=== PATIENT | female | born 1945 | race Caucasian/White ===

== ENCOUNTER 2020-06-01 08:37 | Outpatient (CLI) | payer OTHER, MEDICAID, SELFPAY ==
--- NOTE | 2020-06-01 08:56 | ECHO_ITS ---
Patient Info Name: Staci Trejo Age: 75 years : 1945 Gender: Female Ht: 64 in Wt: 161 lbs BSA: 1.83 m2 HR: 102 bpm BP: 136 / 72 mmHg Technical Quality: Poor Exam Date: 06/01/2020 9:06 AM Exam Location: [facility] Patient Status: Outpatient Admit Date: 06/01/2020 Staff Ordering Physician: Christian Bryan DO Photo Manager: April Ritchie RDCS Attending Provider: Christian Bryan DO Referring Physician: Irvin MARTINEZ; Exam Type: CA echo dop color flow w con Study Info Indications - hesrt failure Complete two-dimensional, color flow and Doppler transthoracic echocardiogram is performed with contrast to opacify the left ventricle and to improve the deliniation of the left ventricle endocardial borders. Contrast/Agitated Saline Contrast/Ag. Saline: Definity Amount: 1.00 ml Administered By: Efra Graves RN New IV Access: Left Site Condition: IV removed Reason for Poor Study: poor echocardiographic windows Summary 1. Left ventricular chamber dimension is normal. 2. Definity contrast administered improved wall motion interpretation. 3. Ventricular septum is sigmoid shaped. No LVOT obstruction. 4. Left ventricular systolic function is hyperdynamic, estimated at >70%. 5. There is mildly increased left ventricular wall thickness. 6. The left ventricular diastolic function is grade I diastolic dysfunction. 7. E/e' 10 is mildly elevated. 8. Left atrial chamber dimension is mildly enlarged. 9. The aortic valve is not well visualized. Cannot determine number of aortic valve leaflets. 10. There is severe aortic valve sclerosis. 11. There is moderate aortic valve stenosis with a peak velocity of 283.24 cm/s, mean gradient of 21 mmHg, and aortic valve area of 1.38 cm2. 12. The mitral valve has moderately calcified leaflets and moderately calcified annulus. 13. No pulmonary hypertension, estimated pulmonary arterial systolic pressure is 28 mmHg. Left Ventricle E/e' 10 is mildly elevated. Ventricular septum is sigmoid shaped. No LVOT obstruction. Definity contrast administered improved wall motion interpretation. Left ventricular chamber dimension is normal. Left ventricular systolic function is hyperdynamic, estimated at >70%. There is mildly increased left ventricular wall thickness. The left ventricular diastolic function is grade I diastolic dysfunction. Right Ventricle Right ventricular chamber dimension is normal. Right ventricular systolic function is normal. Left Atria Left atrial chamber dimension is mildly enlarged. Right Atria Right atrial chamber dimension is normal. Aortic Valve The aortic valve is not well visualized. Cannot determine number of aortic valve leaflets. There is severe aortic valve sclerosis. There is moderate aortic valve stenosis with a peak velocity of 283.24 cm/s, mean gradient of 21 mmHg, and aortic valve area of 1.38 cm2. There is no aortic valve regurgitation. Pulmonic Valve There is no pulmonic regurgitation. Mitral Valve The mitral valve has moderately calcified leaflets and moderately calcified annulus. There is no mitral valve stenosis. There is no mitral valve regurgitation. Tricuspid Valve There is no tricuspid valve regurgitation. No pulmonary hypertension, estimated pulmonary arterial systolic pressure is 28 mmHg. Pericardium/Pleural There is no pericardial effusion. Inferior Vena Cava Normal inferior vena cava with >50% collapse up
[2020-06-01] MEDS: PERFLUTREN LIPID MICROSPHERES 1.5 ML VIAL DILUTED TO 10 ML TOTAL VOLUME IV PUSH (10:36)
== END 2020-06-01 08:38 | disposition home or self-care (01) ==
PROVIDERS: Visit Provider Internal Medicine Cardiovascular Disease
DX: I50.9 Heart failure, unspecified (principal); I35.8 Other nonrheumatic aortic valve disorders; I35.0 Nonrheumatic aortic (valve) stenosis
CPT/HCPCS: C8929

== ENCOUNTER 2021-06-01 09:35 | Outpatient (CLI) | payer OTHER, MEDICAID, SELFPAY ==
--- NOTE | 2021-06-01 09:37 | ECHO_ITS ---
Patient Info Name: Staci Trejo Age: 76 years : 1945 Gender: Female Ht: 66 in Wt: 165 lbs BSA: 1.88 m2 HR: 76 bpm BP: 129 / 72 mmHg Technical Quality: Fair Exam Date: 06/01/2021 10:02 AM Exam Location: [facility] Patient Status: Outpatient Admit Date: 06/01/2021 Staff Ordering Physician: Christian Bryan DO Scheduling Coordinator: Brittany Bonilla RDCS Attending Provider: Christian Bryan DO Referring Physician: Irvin MARTINEZ; Exam Type: CA echo doppler color flow Study Info Indications I35.0 - Nonrheumatic aortic (valve) stenosis Complete two-dimensional, color flow and Doppler transthoracic echocardiogram is performed. Summary 1. Complete two-dimensional, color flow and Doppler transthoracic echocardiogram is performed. 2. Left ventricular chamber dimension is normal. 3. Left ventricular systolic function is normal, estimated at 65-70%. 4. The left ventricular diastolic function is grade I diastolic dysfunction. 5. E/e' 9 is minimally elevated. 6. Global longitudinal strain is normal at -18.6%. 7. Left atrial chamber dimension is mildly enlarged. 8. There is severe aortic valve sclerosis. 9. There is trace aortic valve regurgitation. 10. There appears to be moderate aortic valve stenosis by visual estimation but mild aortic stenosis based on a peak velocity of 234 cm/s, mean gradient of 13 mmHg, and aortic valve area of 1.7 cm2. 11. The mitral valve has moderately calcified leaflets and moderately calcified annulus. 12. There is trace mitral valve regurgitation. 13. No pulmonary hypertension, estimated pulmonary arterial systolic pressure is 24 mmHg. Left Ventricle E/e' 9 is minimally elevated. Global longitudinal strain is normal at -18.6%. Left ventricular chamber dimension is normal. Left ventricular systolic function is normal, estimated at 65-70%. The left ventricular diastolic function is grade I diastolic dysfunction. Right Ventricle Right ventricular systolic function is normal and with normal TAPSE 1.9 cm. Right ventricular chamber dimension is normal. Left Atria Left atrial chamber dimension is mildly enlarged. Right Atria Right atrial chamber dimension is normal. Aortic Valve There appears to be moderate aortic valve stenosis by visual estimation but mild aortic stenosis based on a peak velocity of 234 cm/s, mean gradient of 13 mmHg, and aortic valve area of 1.7 cm2. The aortic valve is trileaflet. There is severe aortic valve sclerosis. There is trace aortic valve regurgitation. Pulmonic Valve There is no pulmonic regurgitation. Mitral Valve The mitral valve has moderately calcified leaflets and moderately calcified annulus. There is no mitral valve stenosis. There is trace mitral valve regurgitation. Tricuspid Valve There is no tricuspid valve regurgitation. No pulmonary hypertension, estimated pulmonary arterial systolic pressure is 24 mmHg. Pericardium/Pleural There is no pericardial effusion. Inferior Vena Cava Normal inferior vena cava with >50% collapse upon inspiration consistent with normal right atrial pressure, 5 mmHg. Aorta The aortic root size at the sinus of Valsalva is normal. Left Ventricular Outflow Tract Name Value Normal LVOT 2D LVOT Diameter
== END 2021-06-01 09:36 | disposition home or self-care (01) ==
LOC: ANHCARD 09:37
PROVIDERS: PCP Hospitalist; Visit Provider Internal Medicine Cardiovascular Disease
DX: I35.0 Nonrheumatic aortic (valve) stenosis (principal); I34.0 Nonrheumatic mitral (valve) insufficiency
CPT/HCPCS: 93306

== ENCOUNTER 2021-08-04 08:07 | Outpatient (CLI) | payer OTHER, MEDICAID, SELFPAY ==
--- NOTE | ~2021-08-04 | NM_ITS ---
EXAMINATION: NM diogenes stress w perfusion DATE: 08/04/2021 16:36 INDICATION: Chest pain. TECHNIQUE: Rest images were obtained following intravenous administration of 10 mCi Tc99m tetrofosmin (Myoview). The patient was infused intravenously with Lexiscan (regadenoson). Then, 30.8 mCi Tc99m t etrofosmin (Myoview) was administered intravenously, and stress images were obtained. Data was recons tructed into short axis and horizontal and vertical long axis SPECT images. Gated SPECT images were a lso obtained. COMPARISON: None. FINDINGS: There is no definite reversible or fixed perfusion abnormality to suggest ischemia or infar ction. There is no segmental wall motion abnormality. Left ventricular ejection fraction measures > 70%. IMPRESSION: 1. No definite ischemia or infarct. 2. Normal left ventricular ejection fraction measuring >70%. Reviewed, dictated and finalized at location A.
--- NOTE | 2021-08-04 08:17 | EST_ITS ---
Patient Info Name: Staci Trejo Age: 76 years : 1945 Gender: Female Ht: 67 in Wt: 165 lbs BSA: 1.89 m2 HR: 83 bpm BP: 146 / 67 mmHg Heart Rhythm: Sinus Rhythm Exam Date: 08/04/2021 9:54 AM Exam Location: [facility] [place] Stress Patient Status: Outpatient Admit Date: 08/04/2021 Staff Ordering Physician: Christian Bryan DO Attending Provider: Christian Bryan DO Exercise Technologist: Jesika Vega CT Exercise Physician: Christian Bryan DO Exam Type: CA stress diogenes w NM Study Info Indications R07.9 - Chest pain, unspecified A regadenoson stress test was performed. Summary 1. 1. Negative lexiscan stress test for ischemic ST changes by ECG criteria. 2. 2. Stable hemodynamics throughout the test. 3. 3. Nuclear scan to follow and will be reported separately. Please correlate with it. 4. 4. Patient informed of the above results. Protocol: Lexiscan Stress ECG Details Stage: REST Duration (min): 0 min : 57 sec HR (bpm): 82 SBP (mmHg): 146 DBP (mmHg): 67 Stage: REST Duration (min): 24 min : 32 sec HR (bpm): 86 SBP (mmHg): 146 DBP (mmHg): 67 Stage: STAGE 1 Duration (min): 1 min : 0 sec HR (bpm): 101 SBP (mmHg): 129 DBP (mmHg): 55 Stage: RECOVERY Duration (min): 1 min : 0 sec HR (bpm): 105 SBP (mmHg): 129 DBP (mmHg): 55 Stage: RECOVERY Duration (min): 2 min : 0 sec HR (bpm): 104 SBP (mmHg): 129 DBP (mmHg): 55 Stage: RECOVERY Duration (min): 2 min : 50 sec HR (bpm): 104 SBP (mmHg): 128 DBP (mmHg): 55 Rest HR: 86 bpm Peak HR: 107 bpm Rest Sys BP: 146 mmHg Peak Sys BP: 129 mmHg Max Pred HR: 144 bpm % Max Pred HR: 74 % Target HR: 122 bpm Max RPP: 13,803 bpm*mmHg Termination Reason: Completed protocol Cardiac Symptoms: Shortness of breath Total Time: 1 min : 0 sec Rest Bliss BP: 67 mmHg Peak Bliss BP: 55 mmHg Total Dose: 0.4 mg Resting ECG Sinus rhythm, IRBBB. Stress ECG No ST changes. Arrhythmias None. Report Signatures
== END 2021-08-04 08:08 | disposition home or self-care (01) ==
PROVIDERS: PCP Hospitalist; Visit Provider Internal Medicine Cardiovascular Disease
DX: R07.9 Chest pain, unspecified (principal)
CPT/HCPCS: 78452; 93017; A9502; J2785

== ENCOUNTER 2022-06-26 13:33 | Outpatient (CLI) | payer OTHER, MEDICAID, SELFPAY ==
--- NOTE | 2022-06-26 13:38 | ECHO_ITS ---
Patient Info Name: Staci Trejo Age: 77 years : 1945 Gender: Female Ht: 66 in Wt: 164 lbs BSA: 1.88 m2 HR: 84 bpm BP: 126 / 70 mmHg Technical Quality: Fair Exam Date: 06/26/2022 1:55 PM Exam Location: [facility] Patient Status: Outpatient Admit Date: 06/26/2022 Staff Ordering Physician: Christian Bryan DO Websphere Portal Architect: Brittany Bonilla RDCS Attending Provider: Christian Bryan DO Referring Physician: Irvin MARTINEZ; Exam Type: CA echo doppler color flow Study Info Indications I35.0 - Nonrheumatic aortic (valve) stenosis Complete two-dimensional, color flow and Doppler transthoracic echocardiogram is performed. Strain analysis performed. Summary 1. Complete two-dimensional, color flow and Doppler transthoracic echocardiogram is performed. 2. Left ventricular chamber dimension is normal. 3. Ventricular septum is sigmoid shaped. No LVOT obstruction. 4. Left ventricular systolic function is normal, estimated at 55-60%. 5. There is mild concentric increased left ventricular wall thickness. 6. The left ventricular diastolic function is grade I diastolic dysfunction. 7. E/e' 12 is mildly elevated. 8. Global longitudinal strain is normal at -17.2%. 9. Left atrial chamber dimension is mildly enlarged. 10. There is severe aortic valve sclerosis. 11. There is moderate aortic valve stenosis with a peak velocity of 241 cm/s, mean gradient of 15 mmHg, and aortic valve area of 1.1 cm2. 12. There is trace aortic valve regurgitation. 13. The mitral valve has moderately calcified anterior leaflet. 14. There is mild mitral valve regurgitation. 15. No pulmonary hypertension, estimated pulmonary arterial systolic pressure is 32 mmHg. Left Ventricle E/e' 12 is mildly elevated. Global longitudinal strain is normal at -17.2%. Ventricular septum is sigmoid shaped. No LVOT obstruction. Left ventricular chamber dimension is normal. Left ventricular systolic function is normal, estimated at 55-60%. There is mild concentric increased left ventricular wall thickness. The left ventricular diastolic function is grade I diastolic dysfunction. Right Ventricle Right ventricular systolic function is normal and with normal TAPSE 2.0 cm. Right ventricular chamber dimension is normal. Left Atria Left atrial chamber dimension is mildly enlarged. Right Atria Right atrial chamber dimension is normal. Aortic Valve The aortic valve is trileaflet. There is severe aortic valve sclerosis. There is moderate aortic valve stenosis with a peak velocity of 241 cm/s, mean gradient of 15 mmHg, and aortic valve area of 1.1 cm2. There is trace aortic valve regurgitation. Pulmonic Valve There is no pulmonic regurgitation. Mitral Valve The mitral valve has moderately calcified anterior leaflet. There is no mitral valve stenosis. There is mild mitral valve regurgitation. Tricuspid Valve There is no tricuspid valve regurgitation. No pulmonary hypertension, estimated pulmonary arterial systolic pressure is 32 mmHg. Pericardium/Pleural There is no pericardial effusion. Inferior Vena Cava Normal inferior vena cava with >50% collapse upon inspiration consistent with normal right atrial pressure, 5 mmHg. Aorta The aortic root size at the sinus of Valsalva is normal. Left Ventricular Outflow Tract Name Value Normal
== END 2022-06-26 13:34 | disposition home or self-care (01) ==
LOC: ANHCARD 13:34
PROVIDERS: PCP Hospitalist; Visit Provider Internal Medicine Cardiovascular Disease
DX: I35.0 Nonrheumatic aortic (valve) stenosis (principal); I34.0 Nonrheumatic mitral (valve) insufficiency
CPT/HCPCS: 93306

== ENCOUNTER 2023-07-09 12:38 | Outpatient (CLI) | payer OTHER, MEDICAID, SELFPAY ==
--- NOTE | 2023-07-09 12:43 | ECHO_ITS ---
Patient Info Name: Staci Trejo Age: 78 years : 1945 Gender: Female Ht: 62 in Wt: 157 lbs BSA: 1.79 m2 HR: 89 bpm BP: 130 / 72 mmHg Technical Quality: Fair Exam Date: 07/09/2023 1:02 PM Exam Location: [facility] Patient Status: Outpatient Admit Date: 07/09/2023 Staff Ordering Physician: Christian Bryan DO Small Electric Engine Technician: Attending Provider: Christian Bryan DO Referring Physician: Irvin MARTINEZ; Exam Type: CA echo doppler color flow Study Info Indications I35.0 - Nonrheumatic aortic (valve) stenosis Complete two-dimensional, color flow and Doppler transthoracic echocardiogram is performed. Summary 1. Complete two-dimensional, color flow and Doppler transthoracic echocardiogram is performed. 2. Left ventricular chamber dimension is normal. 3. Left ventricular systolic function is normal, estimated at 65-70%. 4. There is mild concentric increased left ventricular wall thickness. 5. The left ventricular diastolic function is grade I diastolic dysfunction. 6. E/e' 6 is not elevated. 7. Left atrial chamber dimension is mildly enlarged. 8. The aortic valve is not well visualized. Cannot determine number of aortic valve leaflets. 9. There is moderate aortic valve sclerosis. 10. There is moderate aortic valve stenosis with a peak velocity of 327 cm/s, mean gradient of 23 mmHg, and aortic valve area of 1.1 cm2. 11. There is mild aortic valve regurgitation. 12. The mitral valve has moderately calcified leaflets. 13. There is trace mitral valve regurgitation. 14. The prox ascending aorta size is borderline dilated at 4.1 cm. Left Ventricle E/e' 6 is not elevated. Left ventricular chamber dimension is normal. Left ventricular systolic function is normal, estimated at 65-70%. There is mild concentric increased left ventricular wall thickness. The left ventricular diastolic function is grade I diastolic dysfunction. Right Ventricle Right ventricular systolic function is normal and with normal TAPSE 2.1 cm. Right ventricular chamber dimension is normal. Left Atria Left atrial chamber dimension is mildly enlarged. Right Atria Right atrial chamber dimension is normal. Aortic Valve The aortic valve is not well visualized. Cannot determine number of aortic valve leaflets. There is moderate aortic valve sclerosis. There is moderate aortic valve stenosis with a peak velocity of 327 cm/s, mean gradient of 23 mmHg, and aortic valve area of 1.1 cm2. There is mild aortic valve regurgitation. Pulmonic Valve There is no pulmonic regurgitation. Mitral Valve The mitral valve has moderately calcified leaflets. There is no mitral valve stenosis. There is trace mitral valve regurgitation. Tricuspid Valve There is no tricuspid valve regurgitation. Pericardium/Pleural There is no pericardial effusion. Inferior Vena Cava Normal inferior vena cava with >50% collapse upon inspiration consistent with normal right atrial pressure, 5 mmHg. Aorta The prox ascending aorta size is borderline dilated at 4.1 cm. The aortic root size at the sinus of Valsalva is normal. Left Ventricular Outflow Tract Name Value Normal LVOT 2D LVOT Diameter 2.0 cm LVOT Doppler LVOT Peak Gradient 4 mmHg LVOT Mean Grad
== END 2023-07-09 12:39 | disposition home or self-care (01) ==
LOC: ANHCARD 12:40
PROVIDERS: PCP Hospitalist; Visit Provider Internal Medicine Cardiovascular Disease
DX: I35.0 Nonrheumatic aortic (valve) stenosis (principal)
CPT/HCPCS: 93306

== ENCOUNTER 2023-11-28 17:34 | Observation (INO) | payer OTHER, MEDICAID, SELFPAY ==
[2023-11-28] VITALS (8 sets, daily range): BP systolic 135–144; BP diastolic 56–78; PULSE 87–99; RESP 14–20; TEMP 36.2; O2SAT 96–100
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
--- NOTE | ~2023-11-28 | XR_ITS ---
EXAMINATION: XR chest 2V Exam Date/Time: 11/28/2023 20:28 CDT HISTORY: Weakness, WBC elevated Comparison: 09/12/2017. RESULT: Lines, tubes, and devices: None. Lungs and pleura: Senescent change. Mild bilateral peripheral reticular opacities. Cardiomediastinal silhouette: Stable. Other: No acute osseous or upper abdominal finding. IMPRESSION: Mild interstitial edema. Reviewed, dictated and finalized at location K. IMPRESSION: Mild interstitial edema.
--- NOTE | ~2023-11-28 | CT_ITS ---
EXAMINATION: CT brain wo con DATE: 11/28/2023 20:44 INDICATION: Confusion, weakness generalized . TECHNIQUE: Computed tomography (CT) of the head was performed without intravenous contrast. The mA wa s adjusted according to patient size. Iterative reconstruction technique was employed. The dose-lengt h product was 756.67 mGy-cm. COMPARISON: None. FINDINGS: No acute intracranial hemorrhage or extra-axial fluid collection. No hydrocephalus, mass, or herniation. No acute ischemic infarct. Unremarkable dural venous sinus attenuation. No acute osseous abnormality. Bilateral maxillary mucosal thickening, the remaining aerated spaces are clear. Moderate atrophy and chronic white matter change. Atherosclerotic intracranial calcification. Bilater al lens replacements. Old bilateral basal ganglia lacunar infarcts. IMPRESSION: No acute intracranial process. Reviewed, dictated and finalized at location K.
--- NOTE | 2023-11-28 19:09 | ECG_ITS ---
Test Date: 2023-11-28 19:34:26 Measurements Intervals [place] Rate: 91 P: 31 DC: 153 QRS: -30 QRSD: 113 T: -12 QT: 380 QTc: 470 Interpretive Statements SINUS RHYTHM LEFT AXIS DEVIATION RIGHT BUNDLE BRANCH BLOCK CANNOT R/O SEPTAL INFARCT, AGE INDETERMINATE BASELINE ARTIFACT- I, II, III, AVR, AVL, AVF, V1-V6 ABNORMAL ECG No previous ECG available for comparison Electronically Signed On 11-28-2023 20:25:38 CDT by Christian Bryan D.O.
[2023-11-28 19:39] LABS: Basophils Percent Auto 0.2 % (0.2-1.2); Eosinophils Absolute Auto 0.1 K/mm3 (0-0.3); Hematocrit 37.9 % (37.0-47.0); Hemoglobin 12.1 g/dL (12.0-15.0); Immature Granulocyte Absolute 0.03 K/mm3 (0.00-0.031); Immature Granulocyte Percent A 0.2 % (0-0.5); Lymphocytes Absolute Auto 4.36 K/mm3 (0.9-3.2); Mean Corpuscular HGB Conc 31.9 g/dl (32-36); Mean Corpuscular Hemoglobin 28.9 pg (26-34); Mean Corpuscular Volume 90.5 fl (80-100); Mean Platelet Volume 8.3 fl (7.4-10.4); Monocytes Absolute Auto 1.1 K/mm3 (0.1-0.6); Monocytes Percent Auto 7.7 % (2.6-8.5); Neutrophils Absolute Auto 8.4 K/mm3 (1.3-6.7); Neutrophils Percent Auto 59.9 % (45.5-73.1); Platelet Count Result 430 k/mm3 (150-375); Red Blood Count 4.19 M/mm3 (4.2-5.4); Red Cell Distribution Width 12.9 % (11.5-14.5); White Blood Count 14.1 K/mm3 (4.5-10.0)
[2023-11-28 19:48] LABS: INR 0.9; Prothrombin Time 12.7 Seconds (11.1-14.7)
[2023-11-28 19:49] LABS: Partial Thromboplastin Time 28.4 Seconds (22.3-36.8)
[2023-11-28 20:00] LABS: Alanine Aminotransferase 20 U/L (6-35); Albumin Level 4.6 g/dL (3.5-5.1); Alkaline Phosphatase 98 U/L (38-126); Anion Gap 16 mmol/L (4-12); Aspartate Amino Transferase 23 U/L (14-36); Bilirubin,Total 0.3 mg/dL (0.2-1.3); Blood Urea Nitrogen 16 mg/dL (7-17); Calcium 9.9 mg/dL (8.4-10.2); Carbon Dioxide 27 mmol/L (22-30); Chloride 91 mmol/L (98-107); Estimated CRCL calculation 55 ml/min; Estimated Glomerular Filt Rate > 60; Glucose 185 mg/dL (65-110); Potassium 3.4 mmol/L (3.4-5.0); Sodium 134 mmol/L (137-145)
[2023-11-28 20:16] LABS: Appearance Urine Clear (Clear); Bilirubin Urine Negative (Negative); Blood Urine Negative (Negative); Color Urine Yellow (Yellow); Glucose Urine UA 3+ mg/dL (Negative); Ketones Urine Negative (Negative); Leukocyte Esterase Ur Negative LEU/UL (Negative); Nitrate Urine Negative (Negative); Protein Urine Negative (Negative); Specific Grav Ur 1.013 (1.001-1.035); Urobilinogen Urine 0.2 mg/dL (<2.0); pH Urine 6.5 (5.0-9.0)
[2023-11-28 20:20] LABS: Add Urine Microscopic? NO
--- NOTE | 2023-11-28 20:22 | ED.AMS ---
HPI - Altered Mental Status General Chief Complaint: Altered Mental Status Stated Complaint: confused earlier per facility-baseline at this deja Time Seen by Provider: 11/28/23 19:36 History of Present Illness HPI narrative: This is a 78-year-old female with a past medical history including congestive heart failure, hypertension, hyperlipidemia, diabetes. Today she presents from her [facility] facility for concerns of acting more confused per the care home staff as well as by the son who was present at bedside per collateral information. EMS report noted that she is alert oriented x2 but has been acting at her baseline according to them. Patient states she feels a little more confused than normal and states that she has been getting more forgetful and having word-finding difficulties. She denies any complaints such as trouble breathing, urinary symptoms cousin nausea, vomiting, chest pain, abdominal pain, weakness or fatigue. Her son corroborates the story and states that she has been more confused but otherwise appears very well today. Patient also complains that she has been feeling some generalized weakness without any focality or neurological complaints otherwise. Related Data Home Medications Medication Instructions Recorded Confirmed acetaminophen 500 mg tablet 500 mg PO Q6H PRN 05/12/20 11/08/23 ascorbic acid (vitamin C) 500 mg mg PO 05/12/20 11/08/23 capsule blood sugar diagnostic (Contour #10 ea 05/12/20 11/08/23 Next Test Strips) cholecalciferol (vitamin D3) 125 125 mcg PO DAILY 05/12/20 11/08/23 mcg (5,000 unit) capsule cyanocobalamin (vitamin B-12) 100 mcg subcut MONTHLY 05/12/20 11/08/23 1,000 mcg/mL injection solution empagliflozin 25 mg tablet 25 mg PO DAILY 05/12/20 11/08/23 (Jardiance) ferrous fumarate 325 mg (106 mg PO 05/12/20 11/08/23 iron) tablet losartan 25 mg tablet 25 mg PO DAILY 05/12/20 11/08/23 magnesium oxide 250 mg PO DAILY 05/12/20 11/08/23 meclizine 25 mg tablet 25 mg PO TID 05/12/20 11/08/23 metformin 1,000 mg tablet 1,000 mg PO BID 05/12/20 11/08/23 mirabegron 50 mg tablet,extended 50 mg PO DAILY 05/12/20 11/08/23 release 24 hr (Myrbetriq) multivitamin (Daily-Gisell tablet) 1 tablet PO DAILY 05/12/20 11/08/23 nystatin 100,000 unit/gram topical 1 applic topical BID 05/12/20 11/08/23 cream omega-3 fatty acids 1,000 mg 1,000 mg PO DAILY 05/12/20 11/08/23 capsule (Fish Oil Concentrate) simvastatin 5 mg tablet 5 mg PO DAILY 05/12/20 11/08/23 dulaglutide 3 mg/0.5 mL 3 mg subcut WEEKLY 05/10/21 11/08/23 subcutaneous pen injector (Trulicity) glipizide 10 mg tablet, extended 20 mg PO DAILY 05/10/21 11/08/23 release 24 hr aspirin 81 mg tablet,delayed 81 mg PO DAILY 11/15/22 11/08/23 release (Adult Aspirin Regimen) albuterol sulfate 90 mcg/actuation 1 inh inhalation Q4H 05/15/23 11/08/23 aerosol inhaler fluticasone fur. 200 mcg-umeclid 1 inh inhalation DAILY 05/15/23 11/08/23 62.5 mcg-vilant 25 mcg inhalat.powder (Trelegy Ellipta) insulin glargine-yfgn 100 unit/mL 15 unit subcut QAM 05/15/23 11/08/23 (3 mL) subcutaneous pen (Semglee (insulin glargine-yfgn) Pen) Allergies Allergy/AdvReac Type Severity Reaction Status Date / Time Sulfa (Sulfonamide AdvReac Unknown Unknown Verified 11/28/23 17:34 Antibiotics) Review of Systems Review of Systems: ROS as described above and otherwise negative [facility] [place] Past Medical History Medical History Anemia Arthritis Diabetes Skin cancer Stroke Surgical History Surgical History History of appendectomy Social History Social History Smoking status: Never smoker Exam Narrative: GENERAL: Chronically ill-appearing but not in any acute distress HEAD: [Normocephalic, atraumatic.] EYES: [PERRLA and EOMI.] ENT
[2023-11-28 21:06] LABS: Beta-Hydroxybutyrate/Acetoacetate 0.21 mmol/L (0.02-0.27)
[2023-11-28 21:16] LABS: Troponin I < 0.012 ng/mL (0.000-0.034)
[2023-11-28 21:30] LABS: Lactic Acid Reflex 4.9 mmol/L (0.7-2.0)
[2023-11-28 22:36] LABS: CRP < 0.5 mg/dL (<1.0)
[2023-11-28] MEDS: LACTATED RINGERS 1,000 ML 999 ML IV CONT (22:53)
[2023-11-28] MEDS: CEFEPIME 2 GM/NS 50 ML 2 GM/50 ML BAG IVPB (22:53)
[2023-11-28 23:01] LABS: Lactic Acid Reflex 4.6 mmol/L (0.7-2.0)
[2023-11-28 23:11] LABS: Troponin I < 0.012 ng/mL (0.000-0.034)
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
[2023-11-28 23:42] LABS: Influenza A QL RT-PCR Negative (Negative); Influenza B QL RT-PCR Negative (Negative); RSV RNA, RT-PCR Negative (Negative); SARS-CoV-2 RNA PCR Negative (Negative)
[2023-11-28] MEDS: VANCOMYCIN 2,000 MG/NS 500 ML 2,000 MG/500 ML BAG 250 MG IVPB (23:42)
[2023-11-29] VITALS (11 sets, daily range): BP systolic 121–151; BP diastolic 50–88; PULSE 81–92; RESP 16–20; TEMP 35.8–37.2; O2SAT 94–100; BMI 28.3; BMI 10.0
[2023-11-29 00:15] LABS: Reflex Lactic Acid Yes or No Add Lactic
--- NOTE | 2023-11-29 00:55 | ADMGEN ---
This patient, Staci Trejo, was admitted to Medical Room 246-01. Patient/family oriented to hospital policies and general routines including ID bracelet, bed and alarms, visiting hours, pain management, procedures, bathroom and other care routines, personal items, smoking policy, room service/diet, and visiting hours. Information on how to activate the Rapid Response Team has been discussed. Patient/Family are encouraged to report perceived risks to care and to ask questions if they do not understand what they are told or what they should do.
[2023-11-29 01:09] LABS: Lactic Acid 2.4 mmol/L (0.7-2.0)
[2023-11-29 05:48] LABS: Estimated CRCL calculation 72 ml/min; Estimated Glomerular Filt Rate > 60
[2023-11-29] MEDS: AZITHROMYCIN 500 MG/NS 250 ML 500 MG/250 ML BAG 250 MG IVPB (06:23)
--- NOTE | 2023-11-29 07:22 | P.PNIM_ITS ---
Progress Note: A&P Assessment and Plan (1) Sepsis: Code(s): A41.9 - Sepsis, unspecified organism Status: Acute Assessment and Plan: 11/29/23: * Patient meeting severe sepsis criteria with high heart rate, white blood cell count 14.1, lactic acidosis, altered mental status, pneumonia on chest x-ray * UA was essentially negative for bacteria * Patient was negative for influenza a and B, RSV, COVID * Chest x-ray showing mild bilateral peripheral reticular opacities * Abdomen pelvis CT showing right basilar infiltrate * Lactic acid 4.6> 2.4 * Blood cultures were obtained and are pending. * Patient was given 1 L saline while in the ED along with starting cefepime and vancomycin * Patient transition to vancomycin, azithromycin, and Rocephin * Will deescalate the vancomycin as MRSA was negative (2) Pneumonia: Code(s): J18.9 - Pneumonia, unspecified organism Status: Acute Assessment and Plan: 11/29/23: * Chest x-ray showing mild bilateral opacities * Abdomen/pelvis CT showing right basilar infiltrate * Patient currently on vancomycin, Zithromax, and Rocephin * Will deescalate the vancomycin as MRSA was negative * Albuterol ordered p.r.n. for shortness of breath or wheezing however currently on room air (3) Hypertension: Code(s): I10 - Essential (primary) hypertension Status: Chronic Assessment and Plan: 11/29/23: * Blood pressure ranging 121/54 to 151/71 * Continue losartan (4) Diabetes: Code(s): E11.9 - Type 2 diabetes mellitus without complications Status: Chronic Assessment and Plan: 11/29/23: * Blood sugars ranging 106-109 * Will check hemoglobin A1c * Accu checks AC/HS * Low-dose SSI ordered * Continue Lantus 8 units at bedtime which is half of her expected dose * Will hold meal time replacement for now * Trulicity, glipizide, and metformin on hold * hypoglycemic protocol in place * Diabetic diet ordered (5) Congestive heart failure: Code(s): I50.9 - Heart failure, unspecified Status: Chronic Assessment and Plan: 11/29/23: * Echo showed a normal LV systolic function with estimated EF of 65-70%, grade 1 diastolic dysfunction, moderate aortic valve sclerosis and stenosis. * Continue Jardiance, losartan, hydrochlorothiazide (6) Altered mental status: Code(s): R41.82 - Altered mental status, unspecified Status: Chronic Assessment and Plan: 11/29/23: * Likely secondary to sepsis/infection * Head CT negative * Continue neuro checks (7) Dyslipidemia: Code(s): E78.5 - Hyperlipidemia, unspecified Status: Chronic Assessment and Plan: 11/29/23: * Continue atorvastatin, omega-3, and aspirin Time Spent With Patient Time with patient: Greater than 35 minutes Subjective Date/time seen: 11/29/23 07:22 Interval history: Interval history: This is a 78 year old female who presented to the hospital on 11/28/23 for evaluation of AMS. Work up in the hospital includes a chest X-ray which shown mild interstitial edema. Head CT was negative. Abdomen/Pelvis CT shown right basilar infiltrate and or atelectasis, cardiomegaly, retroverted uterus, grade 1 anterolisthesis at L4-L5 due to degenerative changes. Initial labs showed a white blood cell count of 14.1, sodium 134, chloride 91, lactate 4.6> 2.4, troponin negative x2. UA was obtained and showed 3+ urine glucose otherwise negative. Respiratory panel was negative for influenza a and B, RSV, COVID. Blood cultures were obtained and are pending. Patient initially meeting sepsis criteria w
--- NOTE | 2023-11-29 07:22 | PM.IMPN ---
Progress Note: A&P Assessment and Plan (1) Sepsis: Code(s): A41.9 - Sepsis, unspecified organism Status: Acute Assessment and Plan: 11/29/23: Patient meeting severe sepsis criteria with high heart rate, white blood cell count 14.1, lactic acidosis, altered mental status, pneumonia on chest x-ray UA was essentially negative for bacteria Patient was negative for influenza a and B, RSV, COVID Chest x-ray showing mild bilateral peripheral reticular opacities Abdomen pelvis CT showing right basilar infiltrate Lactic acid 4.6> 2.4 Blood cultures were obtained and are pending. Patient was given 1 L saline while in the ED along with starting cefepime and vancomycin Patient transition to vancomycin, azithromycin, and Rocephin Will deescalate the vancomycin as MRSA was negative (2) Pneumonia: Code(s): J18.9 - Pneumonia, unspecified organism Status: Acute Assessment and Plan: 11/29/23: Chest x-ray showing mild bilateral opacities Abdomen/pelvis CT showing right basilar infiltrate Patient currently on vancomycin, Zithromax, and Rocephin Will deescalate the vancomycin as MRSA was negative Albuterol ordered p.r.n. for shortness of breath or wheezing however currently on room air (3) Hypertension: Code(s): I10 - Essential (primary) hypertension Status: Chronic Assessment and Plan: 11/29/23: Blood pressure ranging 121/54 to 151/71 Continue losartan (4) Diabetes: Code(s): E11.9 - Type 2 diabetes mellitus without complications Status: Chronic Assessment and Plan: 11/29/23: Blood sugars ranging 106-109 Will check hemoglobin A1c Accu checks AC/HS Low-dose SSI ordered Continue Lantus 8 units at bedtime which is half of her expected dose Will hold meal time replacement for now Trulicity, glipizide, and metformin on hold hypoglycemic protocol in place Diabetic diet ordered (5) Congestive heart failure: Code(s): I50.9 - Heart failure, unspecified Status: Chronic Assessment and Plan: 11/29/23: Echo showed a normal LV systolic function with estimated EF of 65-70%, grade 1 diastolic dysfunction, moderate aortic valve sclerosis and stenosis. Continue Jardiance, losartan, hydrochlorothiazide (6) Altered mental status: Code(s): R41.82 - Altered mental status, unspecified Status: Chronic Assessment and Plan: 11/29/23: Likely secondary to sepsis/infection Head CT negative Continue neuro checks (7) Dyslipidemia: Code(s): E78.5 - Hyperlipidemia, unspecified Status: Chronic Assessment and Plan: 11/29/23: Continue atorvastatin, omega-3, and aspirin Time Spent With Patient Time with patient: Greater than 35 minutes Subjective Date/time seen: 11/29/23 07:22 Interval history: Interval history: This is a 78 year old female who presented to the hospital on 11/28/23 for evaluation of AMS. Work up in the hospital includes a chest X-ray which shown mild interstitial edema. Head CT was negative. Abdomen/Pelvis CT shown right basilar infiltrate and or atelectasis, cardiomegaly, retroverted uterus, grade 1 anterolisthesis at L4-L5 due to degenerative changes. Initial labs showed a white blood cell count of 14.1, sodium 134, chloride 91, lactate 4.6> 2.4, troponin negative x2. UA was obtained and showed 3+ urine glucose otherwise negative. Respiratory panel was negative for influenza a and B, RSV, COVID. Blood cultures were obtained and are pending. Patient initially meeting sepsis criteria with HR of 95, elevated WBC 14.1, Pneumonia on imaging, and lactic acidosis. Patient was given 1 L NS, and given cefepime and vancomycin. 11/29/23: She is alert and oriented x3, but signs are stable, she is room air, she is afebrile. She denies any fever, chills, nausea, vomiting, diarrhea, abdominal pain chest, shortness a breath. Review of Systems Review of Systems: All systems reviewed & are unremarkable exce
[2023-11-29 07:46] LABS: Basophils Percent Auto 0.3 % (0.2-1.2); Eosinophils Absolute Auto 0.1 K/mm3 (0-0.3); Eosinophils Percent Auto 1.1 % (0-4.4); Hematocrit 35.6 % (37.0-47.0); Hemoglobin 11.5 g/dL (12.0-15.0); Immature Granulocyte Absolute 0.06 K/mm3 (0.00-0.031); Immature Granulocyte Percent A 0.5 % (0-0.5); Lymphocytes Absolute Auto 3.18 K/mm3 (0.9-3.2); Lymphocytes Percent Auto 25.9 % (18.3-44.2); Mean Corpuscular HGB Conc 32.3 g/dl (32-36); Mean Corpuscular Hemoglobin 29.1 pg (26-34); Mean Corpuscular Volume 90.1 fl (80-100); Mean Platelet Volume 8.3 fl (7.4-10.4); Monocytes Absolute Auto 1.1 K/mm3 (0.1-0.6); Monocytes Percent Auto 8.9 % (2.6-8.5); Neutrophils Absolute Auto 7.8 K/mm3 (1.3-6.7); Neutrophils Percent Auto 63.3 % (45.5-73.1); Platelet Count Result 382 k/mm3 (150-375); Red Blood Count 3.95 M/mm3 (4.2-5.4); White Blood Count 12.3 K/mm3 (4.5-10.0)
[2023-11-29 07:59] LABS: Alanine Aminotransferase 15 U/L (6-35); Albumin Level 3.7 g/dL (3.5-5.1); Alkaline Phosphatase 81 U/L (38-126); Anion Gap 8 mmol/L (4-12); Aspartate Amino Transferase 22 U/L (14-36); Bilirubin,Total 0.4 mg/dL (0.2-1.3); Blood Urea Nitrogen 13 mg/dL (7-17); Calcium 8.9 mg/dL (8.4-10.2); Carbon Dioxide 29 mmol/L (22-30); Chloride 98 mmol/L (98-107); Estimated CRCL calculation 85 ml/min; Estimated Glomerular Filt Rate > 60; Glucose 109 mg/dL (65-110); Potassium 3.4 mmol/L (3.4-5.0); Sodium 135 mmol/L (137-145)
[2023-11-29 08:03] LABS: Glucose Point of Care 106 mg/dl (65-105)
[2023-11-29] MEDS: FLUTICASONE/UMECLIDIN/VILANTER 200-62.5-25 MCG ELLIPTA 1 PUFF INHALATION (08:57)
[2023-11-29 09:11] LABS: Hemoglobin A1C 7.6 % (<5.7)
[2023-11-29] MEDS: CHOLECALCIFEROL 5,000 UNITS TABLET 5000 UNITS BY MOUTH (09:52)
[2023-11-29] MEDS: SIMVASTATIN 5 MG TABLET PO (09:52)
[2023-11-29] MEDS: EMPAGLIFLOZIN 25 MG TABLET PO (09:52)
[2023-11-29] MEDS: ASPIRIN 81 MG ENTERIC TABLET PO (09:52)
[2023-11-29] MEDS: ASCORBIC ACID 500 MG TABLET 1000 MG PO (09:53)
[2023-11-29] MEDS: MIRABEGRON 50 MG ER TABLET PO (09:53)
[2023-11-29] MEDS: LOSARTAN POTASSIUM 12.5 MG TABLET PO (09:53)
[2023-11-29] MEDS: OMEGA 3 POLYUNSAT FATTY ACIDS 1 GM CAP PO (09:53)
[2023-11-29 11:59] LABS: Glucose Point of Care 159 mg/dl (65-105)
[2023-11-29 12:07] LABS: MRSA (PCR) NOT DETECTED (NOT DETECTE)
[2023-11-29 16:57] LABS: Glucose Point of Care 161 mg/dl (65-105)
[2023-11-29] MEDS: TOLNAFTATE 1% POWDER 45 GM BTL 1 APPLIC TOPICAL ×2 (19:03→20:52)
[2023-11-29 20:48] LABS: Glucose Point of Care 258 mg/dl (65-105)
[2023-11-29] MEDS: INSULIN GLARGINE (*BKC) 100 UNITS/ML 8 UNITS SUB-Q (20:50)
[2023-11-29] MEDS: MONTELUKAST SODIUM 10 MG TABLET PO (20:51)
[2023-11-29] MEDS: INSULIN ASPART (*BKC) 100 UNITS/ML SUB-Q (20:51)
[2023-11-30] VITALS: BP 142/74; PULSE 84; RESP 20; TEMP 36.1; O2SAT 98
[2023-11-30] MEDS: ACETAMINOPHEN 500 MG TABLET PO ×2 (00:23→04:57)
[2023-11-30 04:00] VITALS: BP 140/54; PULSE 81; RESP 18; TEMP 36.9; O2SAT 93
[2023-11-30 05:57] LABS: Basophils Absolute Auto 0.1 K/mm3 (0.0-0.1); Basophils Percent Auto 0.4 % (0.2-1.2); Eosinophils Absolute Auto 0.3 K/mm3 (0-0.3); Eosinophils Percent Auto 2.5 % (0-4.4); Hematocrit 36.5 % (37.0-47.0); Hemoglobin 11.7 g/dL (12.0-15.0); Immature Granulocyte Absolute 0.06 K/mm3 (0.00-0.031); Immature Granulocyte Percent A 0.5 % (0-0.5); Lymphocytes Absolute Auto 3.32 K/mm3 (0.9-3.2); Lymphocytes Percent Auto 29.1 % (18.3-44.2); Mean Corpuscular HGB Conc 32.1 g/dl (32-36); Mean Corpuscular Hemoglobin 29.1 pg (26-34); Mean Corpuscular Volume 90.8 fl (80-100); Mean Platelet Volume 8.7 fl (7.4-10.4); Monocytes Percent Auto 8.8 % (2.6-8.5); Neutrophils Absolute Auto 6.7 K/mm3 (1.3-6.7); Neutrophils Percent Auto 58.7 % (45.5-73.1); Platelet Count Result 388 k/mm3 (150-375); Red Blood Count 4.02 M/mm3 (4.2-5.4); White Blood Count 11.4 K/mm3 (4.5-10.0)
[2023-11-30 06:00] VITALS: BP 140/54; PULSE 81; RESP 18; TEMP 36.9; O2SAT 93
[2023-11-30 06:11] LABS: Alanine Aminotransferase 18 U/L (6-35); Albumin Level 3.9 g/dL (3.5-5.1); Alkaline Phosphatase 84 U/L (38-126); Anion Gap 11 mmol/L (4-12); Aspartate Amino Transferase 24 U/L (14-36); Bilirubin,Total 0.5 mg/dL (0.2-1.3); Blood Urea Nitrogen 12 mg/dL (7-17); Calcium 9.1 mg/dL (8.4-10.2); Carbon Dioxide 27 mmol/L (22-30); Chloride 97 mmol/L (98-107); Estimated CRCL calculation 72 ml/min; Estimated Glomerular Filt Rate > 60; Glucose 129 mg/dL (65-110); Potassium 3.3 mmol/L (3.4-5.0); Sodium 135 mmol/L (137-145)
[2023-11-30 07:02] VITALS: PULSE 84; RESP 16; O2SAT 92
[2023-11-30] MEDS: FLUTICASONE/UMECLIDIN/VILANTER 200-62.5-25 MCG ELLIPTA 1 PUFF INHALATION (07:02)
[2023-11-30 08:10] LABS: Glucose Point of Care 159 mg/dl (65-105)
--- NOTE | 2023-11-30 08:43 | PM.DS ---
DS: Admitting Diagnosis Discharge Date 11/30/23 Admitting Diagnosis Pneumonia Acute confusion due to infection Aortic stenosis Hypertension Congestive heart failure DS: Discharge Diagnosis Discharge Diagnosis (1) Sepsis: Code(s): A41.9 - Sepsis, unspecified organism Status: Acute (2) Pneumonia: Code(s): J18.9 - Pneumonia, unspecified organism Status: Acute (3) Hypertension: Code(s): I10 - Essential (primary) hypertension Status: Chronic (4) Diabetes: Code(s): E11.9 - Type 2 diabetes mellitus without complications Status: Chronic (5) Congestive heart failure: Code(s): I50.9 - Heart failure, unspecified Status: Chronic (6) Altered mental status: Code(s): R41.82 - Altered mental status, unspecified Status: Chronic (7) Dyslipidemia: Code(s): E78.5 - Hyperlipidemia, unspecified Status: Chronic DS: Summary Hospital Course Reason for hospitalization: Pneumonia Acute confusion due to infection Aortic stenosis Hypertension Congestive heart failure Hospital Course: This is a 78 year old female who presented to the hospital on 11/28/23 for evaluation of AMS. Work up in the hospital includes a chest X-ray which shown mild interstitial edema. Head CT was negative. Abdomen/Pelvis CT shown right basilar infiltrate and or atelectasis, cardiomegaly, retroverted uterus, grade 1 anterolisthesis at L4-L5 due to degenerative changes. Initial labs showed a white blood cell count of 14.1, sodium 134, chloride 91, lactate 4.6> 2.4, troponin negative x2. UA was obtained and showed 3+ urine glucose otherwise negative. Respiratory panel was negative for influenza a and B, RSV, COVID. Blood cultures were obtained and are pending. Patient initially meeting sepsis criteria with HR of 95, elevated WBC 14.1, Pneumonia on imaging, and lactic acidosis. Patient was given 1 L NS, and given cefepime and vancomycin. She was then transition to a azithromycin and Rocephin. MRSA was negative and vancomycin was discontinued. Vital signs are stable, she is afebrile, she is on room air. She has been working with PT and OT with wheelchair to chair transfers and doing well. She is stable for discharge at this time. She will need to finish her antibiotics azithromycin and Augmentin. She will then need to follow up with her primary care physician in 1 week. Final diagnosis: Community-acquired pneumonia Status at Discharge Cognitive/behavioral status at discharge: Alert oriented x3 Functional status at discharge: wheelchair bound Overall status at discharge: patient is progressing back to baseline Time Spent with Patient Time attestation: Total time spent providing and/or coordinating discharge services: Time spent: Greater than 30 minutes Exam Narrative: General: In no acute distress, well nourished Cardiac: Normal S1 and S2. RRR, murmur noted Respiratory: Lungs clear to auscultation, no adventitious lung sounds, currently on room air Gastrointestinal: soft, non-distended, non-tender, normoactive bowel sounds. : voiding without difficulty. Neuro: Alert and oriented x4 DS: Data Data Completed and Pending Completed studies during hospitalization: Chest x-ray Head CT Abdomen pelvis CT Pending studies at discharge: Blood cultures Labs on day of discharge: Labs from last 24 hours 11/30/23 11/30/23 11/29/23 08:06 04:56 20:43 WBC 11.4 H RBC 4.02 L Hgb 11.7 L Hct 36.5 L MCV 90.8 MCH 29.1 MCHC 32.1 RDW 13.0 Plt Count 388 H MPV 8.7 Immature Gran % (Auto) 0.5 Neut % (Auto) 58.7 Lymph % (Auto) 29.1 Wharton % (Auto) 8.8 H Eos % (Auto) 2.5 Baso % (Auto) 0.4 Lymph # (Auto) 3.32 H Wharton # (Auto) 1.0 H Eos # (Auto) 0.3 Baso # (Auto) 0.1 Abs Immat Gran (auto) 0.06 H Absolute Neuts (auto) 6.7 Absolute Nucleated RBC 0.000 Nucleated RBC % 0.0 Sodium 135 L Potassium 3.3 L Chlo
[2023-11-30 09:46] VITALS: BP 122/56
[2023-11-30] MEDS: hydroCHLOROthiazide 25 MG TABLET PO (09:48)
[2023-11-30] MEDS: SIMVASTATIN 5 MG TABLET PO (09:48)
[2023-11-30] MEDS: OMEGA 3 POLYUNSAT FATTY ACIDS 1 GM CAP PO (09:48)
[2023-11-30] MEDS: EMPAGLIFLOZIN 25 MG TABLET PO (09:48)
[2023-11-30] MEDS: ASPIRIN 81 MG ENTERIC TABLET PO (09:48)
[2023-11-30] MEDS: CHOLECALCIFEROL 5,000 UNITS TABLET 5000 UNITS BY MOUTH (09:48)
[2023-11-30] MEDS: LOSARTAN POTASSIUM 12.5 MG TABLET PO (09:48)
[2023-11-30] MEDS: MIRABEGRON 50 MG ER TABLET PO (09:48)
[2023-11-30] MEDS: ASCORBIC ACID 500 MG TABLET 1000 MG PO (09:48)
[2023-11-30] MEDS: AMOXICILLIN/CLAVULANATE K 875-125 MG TAB 1 TABLET PO (09:48)
[2023-11-30] MEDS: AZITHROMYCIN 250 MG TABLET 500 MG PO (09:49)
[2023-11-30] MEDS: POTASSIUM CHLORIDE 20 MEQ ER TABLET PO (09:51)
[2023-11-30 10:00] VITALS: BP 124/60; PULSE 78; RESP 16; TEMP 36.8; O2SAT 93
[2023-11-30 12:04] LABS: Glucose Point of Care 168 mg/dl (65-105)
== END 2023-11-30 14:30 ==
LOC: ANHED 23:20 → ANH2MED 11-29 00:25
PROVIDERS: Nurse Practitioner Acute Care; Student in an Organized Health Care Education/Training Program; Admitting Provider Internal Medicine; Emergency Provider Student in an Organized Health Care Education/Training Program; PCP Hospitalist; Visit Provider General Practice
DX: A41.9 Sepsis, unspecified organism (principal); J18.9 Pneumonia, unspecified organism; I11.0 Hypertensive heart disease with heart failure; I50.9 Heart failure, unspecified; F05 Delirium due to known physiological condition; I35.0 Nonrheumatic aortic (valve) stenosis; R60.0 Localized edema; E11.9 Type 2 diabetes mellitus without complications; E78.5 Hyperlipidemia, unspecified; D64.9 Anemia, unspecified; Z20.822 Contact with and (suspected) exposure to COVID-19; Z79.84 Long term (current) use of oral hypoglycemic drugs; Z79.82 Long term (current) use of aspirin; Z79.4 Long term (current) use of insulin; Z79.51 Long term (current) use of inhaled steroids; Z86.73 Personal history of transient ischemic attack (TIA), and cerebral infarction without residual deficits; Z99.3 Dependence on wheelchair
CPT/HCPCS: 36415; 70450; 71046; 74177; 80053; 81003; 82010; 82565; 82948; 83036; 83605; 84443; 84484; 85025; 85610; 85730; 86140; 87040; 87637; 87641; 93005; 94640; 96365; 96367; 96375; 97161; 97166; 99285; A9270; G0378; J0456; J0692; J0696; J1815; J3370; J7120; Q9967

== ENCOUNTER 2023-12-03 18:02 | Emergency (ER) | payer OTHER, MEDICAID, SELFPAY ==
[2023-12-03 18:12] VITALS: BP 104/72; PULSE 89; RESP 15; TEMP 36.3; O2SAT 99
[2023-12-03 19:47] LABS: Alanine Aminotransferase 20 U/L (6-35); Albumin Level 4.4 g/dL (3.5-5.1); Alkaline Phosphatase 79 U/L (38-126); Anion Gap 13 mmol/L (4-12); Aspartate Amino Transferase 26 U/L (14-36); Bilirubin,Total 0.4 mg/dL (0.2-1.3); Blood Urea Nitrogen 20 mg/dL (7-17); Calcium 9.3 mg/dL (8.4-10.2); Carbon Dioxide 25 mmol/L (22-30); Chloride 95 mmol/L (98-107); Estimated CRCL calculation 49 ml/min; Estimated Glomerular Filt Rate > 60; Glucose 106 mg/dL (65-110); Potassium 3.4 mmol/L (3.4-5.0); Sodium 133 mmol/L (137-145)
[2023-12-03 19:55] LABS: NT Pro B Type Natriuretic Pept 97 pg/mL (19.9-100)
--- NOTE | 2023-12-03 21:28 | ED.EXTPRO ---
HPI - Extremity Problem General Chief complaint: Extremity Problem,Nontraumatic Stated complaint: bilateral leg swelling and redness Time Seen by Provider: 12/03/23 19:38 This is a 78-year-old female with a past medical history including CHF, hypertension, hyperlipidemia, diabetes. Patient was recently discharged from the hospital several days prior for an admission secondary to pneumonia. She was discharged after IV antibiotics and was placed on oral antibiotics including Augmentin and azithromycin. She states that she has been feeling improved and back to her normal state of health but has knows that she has developed a rash in her bilateral lower extremities. Patient states she has had no worsening swelling in her extremities but no some red erythema without any tenderness. Some weepage of fluid was noted but no purulence. No fever, chills or systemic symptoms of infection. Symptoms are on both lower extremities and stop around the mid calf. No tenderness with palpation. She is able ambulate without assistance. She is currently undergoing outpatient rehabilitation and physical therapy. Related Data Home Medications Medication Instructions Recorded Confirmed acetaminophen 500 mg tablet 500 mg PO Q6H PRN Pain (Scale 05/12/20 11/29/23 Score 1-3) ascorbic acid (vitamin C) 500 mg 1,000 mg PO DAILY 05/12/20 11/29/23 capsule blood sugar diagnostic (Contour #10 ea 05/12/20 11/29/23 Next Test Strips) cholecalciferol (vitamin D3) 125 125 mcg PO DAILY 05/12/20 11/29/23 mcg (5,000 unit) capsule cyanocobalamin (vitamin B-12) 100 mcg subcut MONTHLY 05/12/20 11/29/23 1,000 mcg/mL injection solution empagliflozin 25 mg tablet 25 mg PO DAILY 05/12/20 11/29/23 (Jardiance) ferrous fumarate 325 mg (106 mg 325 mg PO DAILY 05/12/20 11/29/23 iron) tablet losartan 25 mg tablet 12.5 mg PO DAILY 05/12/20 11/29/23 magnesium oxide 250 mg PO DAILY 05/12/20 11/29/23 meclizine 25 mg tablet 25 mg PO TID PRN Dizziness 05/12/20 11/29/23 metformin 1,000 mg tablet 1,000 mg PO BID 05/12/20 11/29/23 mirabegron 50 mg tablet,extended 50 mg PO DAILY 05/12/20 11/29/23 release 24 hr (Myrbetriq) nystatin 100,000 unit/gram topical 1 applic topical BID PRN Rash 05/12/20 11/29/23 cream omega-3 fatty acids 1,000 mg 1,000 mg PO DAILY 05/12/20 11/29/23 capsule (Fish Oil Concentrate) simvastatin 5 mg tablet 5 mg PO DAILY 05/12/20 11/29/23 dulaglutide 3 mg/0.5 mL 3 mg subcut WEEKLY 05/10/21 11/29/23 subcutaneous pen injector (Trulicity) glipizide 10 mg tablet, extended 20 mg PO DAILY 05/10/21 11/29/23 release 24 hr aspirin 81 mg tablet,delayed 81 mg PO DAILY 11/15/22 11/29/23 release (Adult Aspirin Regimen) albuterol sulfate 90 mcg/actuation 1 inh inhalation Q4H PRN Shortness 05/15/23 11/29/23 aerosol inhaler Of Breath Or Wheezing fluticasone fur. 200 mcg-umeclid 1 inh inhalation DAILY 05/15/23 11/29/23 62.5 mcg-vilant 25 mcg inhalat.powder (Trelegy Ellipta) insulin glargine-yfgn 100 unit/mL 16 unit subcut HS 05/15/23 11/29/23 (3 mL) subcutaneous pen (Semglee (insulin glargine-yfgn) Pen) insulin aspart U-100 100 unit/mL 10 unit subcut TIDWM 11/29/23 11/29/23 (3 mL) subcutaneous pen insulin glargine-yfgn 100 unit/mL 16 unit subcut HS 11/29/23 11/29/23 (3 mL) subcutaneous pen (Semglee (insulin glargine-yfgn) Pen) ketoconazole 2 % topical cream 1 applic topical BID 11/29/23 11/29/23 montelukast 10 mg tablet 10 mg PO HS 11/29/23 11/29/23 Allergies Allergy/AdvReac Type Severity Reaction Status Date / Time Sulfa (Sulfonamide AdvReac Unknown Unknown Verified 11/28/23 17:34 Antibiotics) Review of Systems Review of Systems: As reviewed above in the [facility] Past Medical History Medical History Anemia Arthritis Diabetes Skin cancer Stroke Surgical History Surgical History Histo
== END 2023-12-03 21:57 | disposition home or self-care (01) ==
PROVIDERS: Student in an Organized Health Care Education/Training Program; Emergency Provider Student in an Organized Health Care Education/Training Program; PCP Hospitalist
DX: L03.116 Cellulitis of left lower limb (principal); L03.115 Cellulitis of right lower limb; I11.0 Hypertensive heart disease with heart failure; I50.9 Heart failure, unspecified; E78.5 Hyperlipidemia, unspecified; E11.9 Type 2 diabetes mellitus without complications; Z85.828 Personal history of other malignant neoplasm of skin
CPT/HCPCS: 36415; 80053; 83880; 99283

== ENCOUNTER 2023-12-06 12:36 | Emergency (ER) | payer OTHER, MEDICAID, SELFPAY ==
[2023-12-06 12:37] VITALS: BP 124/44; PULSE 85; RESP 18; TEMP 36.3; O2SAT 99
--- NOTE | 2023-12-06 12:57 | PCCCNOTE ---
6021-Received a call from Divya with [facility] where the pt resides. Stated she is sending the pt to the ED again making the 3rd trip in the past week. Stated the pt has had pneumonia and cellulitis and treated with ABT therapy. Stated the pt is weak and non weight bearing needing to get into acute rehab. Stated the provider would only write orders for ED not rehab at this time and is sending the pt to the ED for evaluation. Notes she has been working with Gabriella with [facility] in gaining an authorization at #[phone] #[phone] Ext [phone]. Stating they are needing PT/OT orders hopefully however the pt is not appropriate for Assisted living at this time. Deny Crawford is the POA at [phone].
--- NOTE | 2023-12-06 13:35 | ED.GENADULT ---
HPI - General Adult General Chief complaint: Extremity Problem,Nontraumatic <Lizandro Fritz APRN - Last Filed: 12/06/23 13:39> Stated complaint: swollen feet <Lizandro Fritz APRN - Last Filed: 12/06/23 13:39> Time Seen by Provider: 12/06/23 13:35 <Lizandro Fritz APRN - Last Filed: 12/06/23 13:39> Patient presents via ems from [facility] needing NH placement. patient states she was just discharged from the hospital for LE swelling and cellulitis. patient states it is better. patient denies any complaints. case resource manager consult already placed, PE: AXOx3, BS non-labored, slight redness to bilateral ankles with minimal swelling. patient moving all extremities. <Lizandro Fritz APRN - Last Filed: 12/06/23 13:39> History of Present Illness HPI narrative: HPI. Patient recently discharged on azithromycin Augmentin. Seen in the ER 3 days ago and switched to clindamycin. Patient reports she developed weakness from being in the hospital and is unable to perform transfers like she used to be able to. She was sent here by her PCP to be evaluated for [facility]. Patient reports her legs look much better than they had previously. Still slightly erythematous. There is edema noted. <Elias Piña MD - Last Filed: 12/06/23 19:27> Related Data Home medications: Home Medications Medication Instructions Recorded Confirmed acetaminophen 500 mg tablet 500 mg PO Q6H PRN Pain (Scale 05/12/20 11/29/23 Score 1-3) ascorbic acid (vitamin C) 500 mg 1,000 mg PO DAILY 05/12/20 11/29/23 capsule blood sugar diagnostic (Contour #10 ea 05/12/20 11/29/23 Next Test Strips) cholecalciferol (vitamin D3) 125 125 mcg PO DAILY 05/12/20 11/29/23 mcg (5,000 unit) capsule cyanocobalamin (vitamin B-12) 100 mcg subcut MONTHLY 05/12/20 11/29/23 1,000 mcg/mL injection solution empagliflozin 25 mg tablet 25 mg PO DAILY 05/12/20 11/29/23 (Jardiance) ferrous fumarate 325 mg (106 mg 325 mg PO DAILY 05/12/20 11/29/23 iron) tablet losartan 25 mg tablet 12.5 mg PO DAILY 05/12/20 11/29/23 magnesium oxide 250 mg PO DAILY 05/12/20 11/29/23 meclizine 25 mg tablet 25 mg PO TID PRN Dizziness 05/12/20 11/29/23 metformin 1,000 mg tablet 1,000 mg PO BID 05/12/20 11/29/23 mirabegron 50 mg tablet,extended 50 mg PO DAILY 05/12/20 11/29/23 release 24 hr (Myrbetriq) nystatin 100,000 unit/gram topical 1 applic topical BID PRN Rash 05/12/20 11/29/23 cream omega-3 fatty acids 1,000 mg 1,000 mg PO DAILY 05/12/20 11/29/23 capsule (Fish Oil Concentrate) simvastatin 5 mg tablet 5 mg PO DAILY 05/12/20 11/29/23 dulaglutide 3 mg/0.5 mL 3 mg subcut WEEKLY 05/10/21 11/29/23 subcutaneous [facility] glipizide 10 mg tablet, extended 20 mg PO DAILY 05/10/21 11/29/23 release 24 hr aspirin 81 mg tablet,delayed 81 mg PO DAILY 11/15/22 11/29/23 release (Adult Aspirin Regimen) albuterol sulfate 90 mcg/actuation 1 inh inhalation Q4H PRN Shortness 05/15/23 11/29/23 aerosol inhaler Of Breath Or Wheezing fluticasone fur. 200 mcg-umeclid 1 inh inhalation DAILY 05/15/23 11/29/23 62.5 mcg-vilant 25 mcg inhalat.powder (Trelegy Ellipta) insulin glargine-yfgn 100 unit/mL 16 unit subcut HS 05/15/23 11/29/23 (3 mL) subcutaneous pen (Semglee (insulin glargine-yfgn) Pen) insulin aspart U-100 100 unit/mL 10 unit subcut TIDWM 11/29/23 11/29/23 (3 mL) subcutaneous pen insulin glargine-yfgn 100 unit/mL 16 unit subcut HS 11/29/23 11/29/23 (3 mL) subcutaneous pen (Semglee (insulin glargine-yfgn) Pen) ketoconazole 2 % topical cream 1 applic topical BID 11/29/23 11/29/23 montelukast 10 mg tablet 10 mg PO HS 11/29/23 11/29/23 <Lizandro Fritz APRN - Last Filed: 12/06/23 13:39> Allergies/adverse reactions: Allergies Allergy/AdvReac Type Severity Reaction Status Date / Time Sulfa (Sulfonamide AdvReac Unknown Unknown Verified 12/06/23 16:30 Antibiotics) <Lizandro Fritz, TAPEMAN - Last Filed: 0
[2023-12-06 13:51] LABS: Basophils Absolute Auto 0.1 K/mm3 (0.0-0.1); Basophils Percent Auto 0.5 % (0.2-1.2); Eosinophils Absolute Auto 0.2 K/mm3 (0-0.3); Eosinophils Percent Auto 1.8 % (0-4.4); Hematocrit 37.2 % (37.0-47.0); Hemoglobin 11.9 g/dL (12.0-15.0); Immature Granulocyte Absolute 0.07 K/mm3 (0.00-0.031); Immature Granulocyte Percent A 0.7 % (0-0.5); Lymphocytes Absolute Auto 2.53 K/mm3 (0.9-3.2); Lymphocytes Percent Auto 24.7 % (18.3-44.2); Mean Corpuscular Volume 90.5 fl (80-100); Mean Platelet Volume 8.1 fl (7.4-10.4); Monocytes Absolute Auto 0.7 K/mm3 (0.1-0.6); Monocytes Percent Auto 6.4 % (2.6-8.5); Neutrophils Absolute Auto 6.8 K/mm3 (1.3-6.7); Neutrophils Percent Auto 65.9 % (45.5-73.1); Platelet Count Result 501 k/mm3 (150-375); Red Blood Count 4.11 M/mm3 (4.2-5.4); Red Cell Distribution Width 12.8 % (11.5-14.5); White Blood Count 10.3 K/mm3 (4.5-10.0)
[2023-12-06 14:16] LABS: Alanine Aminotransferase 20 U/L (6-35); Albumin Level 4.4 g/dL (3.5-5.1); Alkaline Phosphatase 105 U/L (38-126); Anion Gap 17 mmol/L (4-12); Aspartate Amino Transferase 27 U/L (14-36); Bilirubin,Total 0.3 mg/dL (0.2-1.3); Blood Urea Nitrogen 20 mg/dL (7-17); Calcium 9.7 mg/dL (8.4-10.2); Carbon Dioxide 25 mmol/L (22-30); Chloride 91 mmol/L (98-107); Estimated CRCL calculation 49 ml/min; Estimated Glomerular Filt Rate > 60; Glucose 243 mg/dL (65-110); Magnesium 2.1 mg/dL (1.6-2.3); Potassium 3.3 mmol/L (3.4-5.0); Sodium 133 mmol/L (137-145)
--- NOTE | 2023-12-06 14:34 | PCCCNOTE ---
1434-Called Gabriella with [facility] [employer] at [phone] #[phone] ext [phone] in which she stated the pt needs the following information for an auth to a SNF or ARF are PT/OT orders, therapy eval showing what her level of function was before and what is it now faxed for determination.
--- NOTE | 2023-12-06 15:18 | PCCCNOTE ---
1518-Communicated with PT/OT, ED regarding needs for transfer to ARF today. PT is in house until 1600 for the eval. Pt is currently in ED waiting room until assessment is complete. Pt made aware of the plans at this time.
--- NOTE | 2023-12-06 16:11 | PC.NURSE ---
PT at bedside to evaluate patient
--- NOTE | 2023-12-06 16:38 | PCCCNOTE ---
1638-Received the PT eval, orders from ED for placement. Faxed the information to [facility] at [phone] and called Gabriella at [phone] #[phone] ext [phone] and had to [facility]. ED provider aware of the status.
--- NOTE | 2023-12-06 17:01 | PCCCNOTE ---
9488-Called ins [employer] at [phone] and spoke with Torres. Shared with her all requested clinical had been faxed as requested and to inquire if any weekend approval would be an option. Stated she let both supervisors know in which the are attaching the clinical for review now. Stated they will call back AKSHAT. They are aware CC are here until 1900 and also shared ED staff direct contact info. The plan was to go to [facility] in [place]. .
[2023-12-06 17:26] VITALS: BP 115/55; PULSE 87; RESP 18; TEMP 36.6; O2SAT 97
--- NOTE | 2023-12-06 18:18 | PC.NURSE ---
care coordination at bedside
--- NOTE | 2023-12-06 19:13 | PC.NURSE ---
Spoke with ALEX Bolton at [facility] for report. BLS transport called for transport.
--- NOTE | 2023-12-06 19:32 | PCCCNOTE ---
1800: Marta from called with a denial for [facility] for pt, but approved SNF if within the next 24 hours. Call placed to Alana keller and Emily with both denying due to not having an auth number from [facility]. [facility] stated that there is a weekend policy that the pt would be covered and the facility should call Saturday morning and they would have a auth number. I did receive a fax from [facility] with it stated that they would cover SNF. [facility] [place] called and they accepted the patient. Pts information faxed to marie Mendoza and her son was agreeable with this transfer. Pts son wanted her transported via ambulance, I explained to him that she could receive a bill, he said she was a fall risk and he did not want to take her. [facility] was sent to [place] as well and preference form was signed by pt. ER nurse, Jeimy was given the number to call report to the facility.
[2023-12-06 21:23] VITALS: BP 112/62; PULSE 83; RESP 15; O2SAT 96
== END 2023-12-06 21:25 ==
PROVIDERS: Nurse Practitioner Family; Emergency Provider Emergency Medicine; PCP Hospitalist
DX: R60.0 Localized edema (principal); R53.81 Other malaise; I50.9 Heart failure, unspecified; E11.9 Type 2 diabetes mellitus without complications; D64.9 Anemia, unspecified; M19.90 Unspecified osteoarthritis, unspecified site; Z86.73 Personal history of transient ischemic attack (TIA), and cerebral infarction without residual deficits; Z85.828 Personal history of other malignant neoplasm of skin; Z79.84 Long term (current) use of oral hypoglycemic drugs; Z79.899 Other long term (current) drug therapy; Z79.85 Long-term (current) use of injectable non-insulin antidiabetic drugs; Z79.4 Long term (current) use of insulin
CPT/HCPCS: 36415; 80053; 83735; 85025; 97161; 97165; 99283

== ENCOUNTER 2024-04-26 20:26 | Inpatient (IN) | payer MEDICARE, MEDICAID, SELFPAY ==
--- NOTE | ~2024-04-26 | CT_ITS ---
EXAMINATION: CT abdomen pelvis w con DATE: 04/27/2024 01:14 INDICATION: Abscess. Pressure wounds. TECHNIQUE: Computed tomography (CT) of the abdomen and pelvis was performed with 100 mL Omnipaque 350 intravenous contrast. Automated exposure control and iterative reconstruction technique were employe d. The dose-length product was 766.15 mGy-cm. COMPARISON: CT abdomen and pelvis 11/28/2023 FINDINGS: The visualized portions of the lung bases demonstrate mild atelectasis. No pleural effusion . Cardiomegaly is noted. There are calcifications aortic valve. No pericardial effusion. Calcificatio ns in the liver and spleen are consistent with old granulomatous disease. There are gallstones in the gallbladder, which is normal in size. The pancreas and adrenal glands are normal. There is cortical thinning of the kidneys. There is a 4 mm cyst in right kidney. Stool distends the rectum. There is a large volume of stool in the colon. The small bowel is normal in caliber. There are no pathologically enlarged lymph nodes. There is no free intraperitoneal fluid. Partially visualized is fat stranding in the right buttocks. There is mild lumbar spondylosis. IMPRESSION: 1. Stool distends the rectum. 2. Partially visualized fat stranding in the right buttocks, consistent with cellulitis. No abscess. Reviewed, dictated and finalized at location A. ENT ADMITTING REPRESENTATIVE IMPRESSION: 1. Stool distends the rectum. 2. Partially visualized fat stranding in the right buttocks, consistent with ce llulitis. No abscess.
[2024-04-26 20:50] VITALS: BP 112/48; PULSE 104; RESP 19; TEMP 36.7; O2SAT 95
--- NOTE | 2024-04-26 23:01 | ED.SKABFB ---
HPI - Skin/Abscess/Foreign Bdy General Chief complaint: Skin/Abscess/Foreign Body <Alexia Lou PA-C - Last Filed: 04/27/24 03:07> Stated complaint: right boil <Alexia Lou PA-C - Last Filed: 04/27/24 03:07> Time Seen by Provider: 04/26/24 22:38 <Alexia Lou PA-C - Last Filed: 04/27/24 03:07> Source: patient <Alexia Lou PA-C - Last Filed: 04/27/24 03:07> Mode of arrival: EMS <Alexia Lou PA-C - Last Filed: 04/27/24 03:07> Limitations: no limitations <Alexia Lou PA-C - Last Filed: 04/27/24 03:07> History of Present Illness HPI narrative: This is a 79 year old female that presents to the ER for wounds on her bottom. Reports multiple abscesses on her right buttock that have been draining. Reports the areas are painful. They tried to drain them at her facility. Reports they have been present over the last couple of days. Denies fevers. <Alexia Lou PA-C - Last Filed: 04/27/24 03:07> Related Data Home medications: Home Medications ?Medication ?Instructions ?Recorded ?Confirmed ?Last Taken ?Type acetaminophen 500 mg tablet 500 mg PO Q6H PRN Pain (Scale 05/12/20 11/29/23 Unknown History Score 1-3) ascorbic acid (vitamin C) 500 mg 1,000 mg PO DAILY 05/12/20 11/29/23 Unknown History capsule blood sugar diagnostic (Contour #10 ea 05/12/20 11/29/23 Unknown History Next Test Strips) cholecalciferol (vitamin D3) 125 125 mcg PO DAILY 05/12/20 11/29/23 Unknown History mcg (5,000 unit) capsule cyanocobalamin (vitamin B-12) 100 mcg subcut MONTHLY 05/12/20 11/29/23 Unknown History 1,000 mcg/mL injection solution empagliflozin 25 mg tablet 25 mg PO DAILY 05/12/20 11/29/23 Unknown History (Jardiance) ferrous fumarate 325 mg (106 mg 325 mg PO DAILY 05/12/20 11/29/23 Unknown History iron) tablet losartan 25 mg tablet 12.5 mg PO DAILY 05/12/20 11/29/23 Unknown History magnesium oxide 250 mg PO DAILY 05/12/20 11/29/23 Unknown History meclizine 25 mg tablet 25 mg PO TID PRN Dizziness 05/12/20 11/29/23 Unknown History metformin 1,000 mg tablet 1,000 mg PO BID 05/12/20 11/29/23 Unknown History mirabegron 50 mg tablet,extended 50 mg PO DAILY 05/12/20 11/29/23 Unknown History release 24 hr (Myrbetriq) nystatin 100,000 unit/gram topical 1 applic topical BID PRN Rash 05/12/20 11/29/23 Unknown History cream omega-3 fatty acids 1,000 mg 1,000 mg PO DAILY 05/12/20 11/29/23 Unknown History capsule (Fish Oil Concentrate) simvastatin 5 mg tablet 5 mg PO DAILY 05/12/20 11/29/23 Unknown History dulaglutide 3 mg/0.5 mL 3 mg subcut WEEKLY 05/10/21 11/29/23 Unknown History subcutaneous pen injector (Trulicity) glipizide 10 mg tablet, extended 20 mg PO DAILY 05/10/21 11/29/23 Unknown History release 24 hr aspirin 81 mg tablet,delayed 81 mg PO DAILY 11/15/22 11/29/23 Unknown History release (Adult Aspirin Regimen) albuterol sulfate 90 mcg/actuation 1 inh inhalation Q4H PRN Shortness 05/15/23 11/29/23 Unknown History aerosol inhaler Of Breath Or Wheezing fluticasone fur. 200 mcg-umeclid 1 inh inhalation DAILY 05/15/23 11/29/23 Unknown History 62.5 mcg-vilant 25 mcg inhalat.powder (Trelegy Ellipta) insulin glargine-yfgn 100 unit/mL 16 unit subcut HS 05/15/23 11/29/23 Unknown History (3 mL) subcutaneous pen (Semglee (insulin glargine-yfgn) Pen) insulin aspart U-100 100 unit/mL 10 unit subcut TIDWM 11/29/23 11/29/23 Unknown History (3 mL) subcutaneous pen insulin glargine-yfgn 100 unit/mL 16 unit subcut HS 11/29/23 11/29/23 Unknown History (3 mL) subcutaneous pen (Semglee (insulin glargine-yfgn) Pen) ketoconazole 2 % topical cream 1 applic topical BID 11/29/23 11/29/23 Unknown History montelukast 10 mg tablet 10 mg PO HS 11/29/23 11/29/23 Unknown History <Alexia Lou PA-C - Last Filed: 04/27/24 03:07> Allergies/Adverse reactions: Allergies Allergy/AdvReac Type Severity Reaction Status Date / Time Sulfa (Sulfonamide AdvReac Unknown Unknown Verified 12/06/23 16:30 Antibiotics) <Alexia Lou PA-C - Last Filed: 04/27/24 03:07> Review of Systems Review of Systems: CONSTITUTIONAL: Denies fever GASTROINTESTINAL: Denies abdominal pain, nausea, vomiting <Alexia Lou PA-C - Last Filed: 04/27/24 03:07> All systems reviewed & are unremarkable except as noted in HPI and below <Alexia Lou PA-C - Last Filed: 04/27/24 03:07> [facility] Past Medical History Medical History: Medical History Anemia Arthritis Diabetes Skin cancer Stroke <Alexia Lou PA-C - Last Filed: 04/27/24 03:07> Surgical History Surgical History: Surgical History History of appendectomy <Alexia Lou PA-C - Last Filed: 04/27/24 03:07> Family History Family History: Family History Mother Acute myocardial infarction Hypertension Sibling Acute myocardial infarction <MING Cabrera Last Filed: 04/27/24 03:07> Social History Social History: Social History Smoking status: Never smoker Alcohol intake: never Substance use: never Do You Feel Safe in your Home?: Yes Lack of Transportation: No Lack of Food: Never True Current Housing: I Have Housing Concerned About Future Housing: No Difficulty Paying Gas/Electric Bills: No Difficulty Paying for Meds: No Currently Unemployed: No Education: Bachelor's Degree Difficulty w/ Childcare or Family Care: No Spiritual care concerns: No <Alexia Lou PA-C - Last Filed: 04/27/24 03:07> Exam Narrative: GENERAL: Elderly, well-nourished, and in no acute distress. HEAD: Normocephalic, atraumatic. EYES: EOMI. CHEST: Clear to auscultation. No respiratory distress. No wheezes rales or rhonchi HEART: Regular rate and rhythm. No murmur heard. Normal peripheral pulses. ABDOMEN: Soft, nontender, nondistended, normal active bowel sounds. EXTREMITIES: Normal range of motion. No edema. SKIN: Warm, dry. Severe diaper dermatitis present. Pressure ulcers present on the right ischium and the sacrum, both erythematous with abnormal drainage NEURO: No focal deficits. Alert and oriented x3. PSYCH: Normal mood and affect <Alexia Lou PA-C - Last Filed: 04/27/24 03:07> Course Course Emergency Course: patient and family updated on workup and recommendation for admission <Alexia Lou PA-C - Last Filed: 04/27/24 03:07> LIGHT INDUSTRIAL SUPERVISOR/PA Physician Supervision For this patient encounter, I reviewed the LIGHT INDUSTRIAL SUPERVISOR or PA documentation, treatment plan, and medical decision making and had [id number] time with this patient. I performed all aspects of the MDM as documented. <Ann Langford MD - Last Filed: 04/27/24 04:09> Vital Signs Vital signs: Vital Signs Temperature 98.0 F 04/26/24 20:50 Pulse Rate 104 H 04/26/24 20:50 Respiratory Rate 19 04/26/24 20:50 Blood Pressure 112/48 L 04/26/24 20:50 Pulse Oximetry 95 04/26/24 20:50 Temperature 98.0 F 04/26/24 20:50 Pulse Rate 81 04/27/24 03:44 Respiratory Rate 15 04/27/24 03:44 Blood Pressure 118/56 L 04/27/24 03:44 Pulse Oximetry 98 04/27/24 03:44 <Alexia Lou PA-C - Last Filed: 04/27/24 03:07> Vital Signs Temperature 98.0 F 04/26/24 20:50 Pulse Rate 104 H 04/26/24 20:50 Respiratory Rate 19 04/26/24 20:50 Blood Pressure 112/48 L 04/26/24 20:50 Pulse Oximetry 95 04/26/24 20:50 Temperature 98.0 F 04/26/24 20:50 Pulse Rate 81 04/27/24 03:44 Respiratory Rate 15 04/27/24 03:44 Blood Pressure 118/56 L 04/27/24 03:44 Pulse Oximetry 98 04/27/24 03:44 <Ann Langford MD - Last Filed: 04/27/24 04:09> MDM - Skin/Abscess/Foreign Bdy MDM Narrative Medical decision making narrative: patient presents to the emergency department for abscess is present in areas of pressure ulcers on the bottom. She is afebrile and nontoxic appearing. Her vitals are stable. CBC with leukocytosis to 21.7. Metabolic panel significant for mild hypokalemia. Potassium was replaced. blood cultures and wound culture obtained. Patient started on IV antibiotics. Spoke with general surgery who will consult. Spoke with hospitalist about patient and workup who accepts admission <Alexia Lou PA-C - Last Filed: 04/27/24 03:07> Differential Diagnosis Differential diagnosis: Likely abscess of skin or subcutaneous tissue and cellulitis <Alexia Lou PA-C - Last Filed: 04/27/24 03:07> Lab Data Attestation: I reviewed the patient's lab results. <Alexia Lou PA-C - Last Filed: 04/27/24 03:07> Result diagrams: 04/26/24 23:48 04/26/24 23:48 <MING Cabrera Last Filed: 04/27/24 03:07> Labs: Lab Results 04/26/24 04/27/24 Range/Units 23:48 00:51 WBC 21.7 H (4.5-10.0) K/mm3 RBC 3.79 L (4.2-5.4) M/mm3 Hgb 11.0 L (12.0-15.0) g/dL Hct 33.1 L (37.0-47.0) % MCV 87.3 (80-100) fl MCH 29.0 (26-34) pg MCHC 33.2 (32-36) g/dl RDW 13.8 (11.5-14.5) % Plt Count 525 H (150-375) k/mm3 MPV 8.4 (7.4-10.4) fl Immature Gran % (Auto) 0.7 H (0-0.5) % Neut % (Auto) 80.7 H (45.5-73.1) % Lymph % (Auto) 11.6 L (18.3-44.2) % [place] % (Auto) 6.7 (2.6-8.5) % Eos % (Auto) 0.1 (0-4.4) % Baso % (Auto) 0.2 (0.2-1.2) % Lymph # (Auto) 2.52 (0.9-3.2) K/mm3 [place] # (Auto) 1.5 H (0.1-0.6) K/mm3 Eos # (Auto) 0.0 (0-0.3) K/mm3 Baso # (Auto) 0.1 (0.0-0.1) K/mm3 Abs Immat Gran (auto) 0.16 H (0.00-0.031) K/mm3 Absolute Neuts (auto) 17.5 H (1.3-6.7) K/mm3 Absolute Nucleated RBC 0.000 (0.0-0.012) K/mm3 Nucleated RBC % 0.0 (0.0-0.2) % Platelet Estimate Increased (Adequate) Anisocytosis 1+ Schistocytes None seen ESR 125 H (0-20) mm/hr Sodium 131 L (137-145) mmol/L Potassium 3.2 L (3.4-5.0) mmol/L Chloride 95 L (98-107) mmol/L Carbon Dioxide 29 (22-30) mmol/L Anion Gap 7 (4-12) mmol/L BUN 15 D (7-17) mg/dL Creatinine 0.70 (0.7-1.0) mg/dL Estim Creat Clear Calc Not Reportable Estimated GFR > 60 (59 - ) Glucose 221 H (65-110) mg/dL Lactic Acid 1.5 (0.7-2.0) mmol/L Calcium 9.1 (8.4-10.2) mg/dL Magnesium 2.2 (1.6-2.3) mg/dL Total Bilirubin 0.6 (0.2-1.3) mg/dL AST 22 (14-36) U/L ALT 15 (6-35) U/L Alkaline Phosphatase 102 (38-126) U/L C-Reactive Protein 8.3 H (<1.0) mg/dL Total Protein 8.0 (6.3-8.2) g/dL Albumin 3.6 (3.5-5.1) g/dL <Alexia Lou PA-C - Last Filed: 04/27/24 03:07> Lab Results 04/26/24 04/27/24 Range/Units 23:48 00:51 WBC 21.7 H (4.5-10.0) K/mm3 RBC 3.79 L (4.2-5.4) M/mm3 Hgb 11.0 L (12.0-15.0) g/dL Hct 33.1 L (37.0-47.0) % MCV 87.3 (80-100) fl MCH 29.0 (26-34) pg MCHC 33.2 (32-36) g/dl RDW 13.8 (11.5-14.5) % Plt Count 525 H (150-375) k/mm3 MPV 8.4 (7.4-10.4) fl Immature Gran % (Auto) 0.7 H (0-0.5) % Neut % (Auto) 80.7 H (45.5-73.1) % Lymph % (Auto) 11.6 L (18.3-44.2) % [place] % (Auto) 6.7 (2.6-8.5) % Eos % (Auto) 0.1 (0-4.4) % Baso % (Auto) 0.2 (0.2-1.2) % Lymph # (Auto) 2.52 (0.9-3.2) K/mm3 [place] # (Auto) 1.5 H (0.1-0.6) K/mm3 Eos # (Auto) 0.0 (0-0.3) K/mm3 Baso # (Auto) 0.1 (0.0-0.1) K/mm3 Abs Immat Gran (auto) 0.16 H (0.00-0.031) K/mm3 Absolute Neuts (auto) 17.5 H (1.3-6.7) K/mm3 Absolute Nucleated RBC 0.000 (0.0-0.012) K/mm3 Nucleated RBC % 0.0 (0.0-0.2) % Platelet Estimate Increased (Adequate) Anisocytosis 1+ Schistocytes None seen ESR 125 H (0-20) mm/hr Sodium 131 L (137-145) mmol/L Potassium 3.2 L (3.4-5.0) mmol/L Chloride 95 L (98-107) mmol/L Carbon Dioxide 29 (22-30) mmol/L Anion Gap 7 (4-12) mmol/L BUN 15 D (7-17) mg/dL Creatinine 0.70 (0.7-1.0) mg/dL Estim Creat Clear Calc Not Reportable Estimated GFR > 60 (59 - ) Glucose 221 H (65-110) mg/dL Lactic Acid 1.5 (0.7-2.0) mmol/L Calcium 9.1 (8.4-10.2) mg/dL Magnesium 2.2 (1.6-2.3) mg/dL Total Bilirubin 0.6 (0.2-1.3) mg/dL AST 22 (14-36) U/L ALT 15 (6-35) U/L Alkaline Phosphatase 102 (38-126) U/L C-Reactive Protein 8.3 H (<1.0) mg/dL Total Protein 8.0 (6.3-8.2) g/dL Albumin 3.6 (3.5-5.1) g/dL <Ann Langford MD - Last Filed: 04/27/24 04:09> Imaging Data Radiologist's impression: CT abdomen and pelvis: there are inflammatory changes noted in the subcutaneous fat in the right buttocks and right flank. No discrete fluid collection is noted. No subcutaneous emphysema is seen. The colon is distended containing urine stool. There is a large amount of stool in the rectum <Alexia Lou PA-C - Last Filed: 04/27/24 03:07> Critical Care Time Critical Care Time Critical Care Time: No <Alexia Lou PA-C - Last Filed: 04/27/24 03:07> Discharge Plan Discharge Clinical Impression: Abscess, Diaper dermatitis, Hypokalemia <Alexia Lou PA-C - Last Filed: 04/27/24 03:07> Patient Disposition: Still a Patient <Alexia Lou PA-C - Last Filed: 04/27/24 03:07> Condition: Stable <Alexia Lou PA-C - Last Filed: 04/27/24 03:07>
[2024-04-26 23:55] LABS: Basophils Absolute Auto 0.1 K/mm3 (0.0-0.1); Basophils Percent Auto 0.2 % (0.2-1.2); Eosinophils Percent Auto 0.1 % (0-4.4); Hematocrit 33.1 % (37.0-47.0); Immature Granulocyte Absolute 0.16 K/mm3 (0.00-0.031); Immature Granulocyte Percent A 0.7 % (0-0.5); Lymphocytes Absolute Auto 2.52 K/mm3 (0.9-3.2); Lymphocytes Percent Auto 11.6 % (18.3-44.2); Mean Corpuscular HGB Conc 33.2 g/dl (32-36); Mean Corpuscular Volume 87.3 fl (80-100); Mean Platelet Volume 8.4 fl (7.4-10.4); Monocytes Absolute Auto 1.5 K/mm3 (0.1-0.6); Monocytes Percent Auto 6.7 % (2.6-8.5); Neutrophils Absolute Auto 17.5 K/mm3 (1.3-6.7); Neutrophils Percent Auto 80.7 % (45.5-73.1); Platelet Count Result 525 k/mm3 (150-375); Red Blood Count 3.79 M/mm3 (4.2-5.4); Red Cell Distribution Width 13.8 % (11.5-14.5); White Blood Count 21.7 K/mm3 (4.5-10.0)
[2024-04-27] VITALS (15 sets, daily range): BP systolic 100–125; BP diastolic 41–78; PULSE 77–99; RESP 14–22; TEMP 36.3–36.9; O2SAT 94–100; BMI 26.4
[2024-04-27 00:17] LABS: Alanine Aminotransferase 15 U/L (6-35); Albumin Level 3.6 g/dL (3.5-5.1); Alkaline Phosphatase 102 U/L (38-126); Anion Gap 7 mmol/L (4-12); Aspartate Amino Transferase 22 U/L (14-36); Bilirubin,Total 0.6 mg/dL (0.2-1.3); Blood Urea Nitrogen 15 mg/dL (7-17); CRP 8.3 mg/dL (<1.0); Calcium 9.1 mg/dL (8.4-10.2); Carbon Dioxide 29 mmol/L (22-30); Chloride 95 mmol/L (98-107); Estimated Glomerular Filt Rate > 60; Glucose 221 mg/dL (65-110); Potassium 3.2 mmol/L (3.4-5.0); Sodium 131 mmol/L (137-145)
[2024-04-27 00:22] LABS: Platelet Estimate Increased (Adequate)
[2024-04-27 00:23] LABS: Anisocytosis 1+; Schistocytes None Seen
[2024-04-27 00:33] LABS: Erythrocyte Sedimentation Rate 125 mm/hr (0-20)
[2024-04-27 01:11] LABS: Lactic Acid Reflex 1.5 mmol/L (0.7-2.0)
[2024-04-27] MEDS: POTASSIUM CHLORIDE 20 MEQ ER TABLET 40 MEQ PO (01:24)
[2024-04-27] MEDS: ACETAMINOPHEN 500 MG TABLET 1000 MG PO (01:24)
[2024-04-27 02:05] LABS: Magnesium 2.2 mg/dL (1.6-2.3)
[2024-04-27 03:27] LABS: Add Urine Microscopic? YES; Appearance Urine Clear (Clear); Bacteria Urine 4+ /hpf; Bilirubin Urine Negative (Negative); Blood Urine Negative (Negative); Color Urine Yellow (Yellow); Glucose Urine UA 3+ mg/dL (Negative); Ketones Urine 1+ mg/dL (Negative); Leukocyte Esterase Ur 1+ LEU/UL (Negative); Nitrate Urine Negative (Negative); Non Pathogenic Casts 0-2; Protein Urine Negative (Negative); RBC Urine 0-2 /hpf (0-2); Specific Grav Ur > 1.045 (1.001-1.035); Squamous Epithelial Cell Urine None Seen /hpf (Few); Urobilinogen Urine 0.2 mg/dL (<2.0); WBC Urine 21-50 /hpf (0-3)
[2024-04-27] MEDS: CEFEPIME 2 GM/NS 50 ML 2 GM/50 ML BAG IVPB (03:36)
[2024-04-27] MEDS: metroNIDAZOLE 500 MG/ISO 100ML 500 MG/100 ML BAG 100 MG IVPB ×3 (05:07→20:59)
--- NOTE | 2024-04-27 05:07 | PC.NURSE ---
PATIENT ARRIVED ON FLOOR AT 04:30
[2024-04-27] MEDS: VANCOMYCIN 1,250 MG/NS 250 ML 1,250 MG/250 ML BAG 166.67 MG IVPB (06:07)
[2024-04-27 08:19] LABS: Glucose Point of Care 118 mg/dl (65-105)
--- NOTE | 2024-04-27 08:46 | PM.IMHP ---
H&P: HPI History of Present Illness Date/Time: 04/27/24 08:46 Chief Complaint: wound on buttocks Narrative: 79 y.o with pmh/o admitted form emergency department for abscess is present in areas of pressure ulcers on the bottom for about few days. She reports she had multiple abscesses on her buttocks that had been draining. Areas are painful to touch IN ED: she is afebrile, vitals are stable. CBC 21.7. Mild hypokalemia. Potassium was replaced in ed. blood cultures and wound culture obtained. Patient started on IV antibiotics. General surgery consulted. pt is seen and examined. She is somewhat confused Review of Systems Review of Systems: she is somewhat confused, pleasant, and cooperative [facility] Past Medical History Medical History Congestive heart failure Aortic stenosis Anemia Arthritis Stroke Skin cancer Diabetes Surgical History Surgical History History of appendectomy Family History Family History Mother Acute myocardial infarction Hypertension Sibling Acute myocardial infarction Social History Social History Smoking status: Never smoker Alcohol intake: never Substance use: never Do You Feel Safe in your Home?: Yes Lack of Transportation: No Lack of Food: Never True Current Housing: I Have Housing Concerned About Future Housing: No Difficulty Paying Gas/Electric Bills: No Difficulty Paying for Meds: No Currently Unemployed: No Education: Bachelor's Degree Difficulty w/ Childcare or Family Care: No Spiritual care concerns: No Meds Home Medications and Allergies Home Medications ?Medication ?Instructions ?Recorded ?Confirmed ?Type acetaminophen 500 mg tablet 500 mg PO Q6H PRN Pain (Scale 05/12/20 11/29/23 History Score 1-3) ascorbic acid (vitamin C) 500 mg 1,000 mg PO DAILY 05/12/20 11/29/23 History capsule blood sugar diagnostic (Contour #10 ea 05/12/20 11/29/23 History Next Test Strips) cholecalciferol (vitamin D3) 125 125 mcg PO DAILY 05/12/20 11/29/23 History mcg (5,000 unit) capsule cyanocobalamin (vitamin B-12) 100 mcg subcut MONTHLY 05/12/20 11/29/23 History 1,000 mcg/mL injection solution empagliflozin 25 mg tablet 25 mg PO DAILY 05/12/20 11/29/23 History (Jardiance) ferrous fumarate 325 mg (106 mg 325 mg PO DAILY 05/12/20 11/29/23 History iron) tablet losartan 25 mg tablet 12.5 mg PO DAILY 05/12/20 11/29/23 History magnesium oxide 250 mg PO DAILY 05/12/20 11/29/23 History meclizine 25 mg tablet 25 mg PO TID PRN Dizziness 05/12/20 11/29/23 History metformin 1,000 mg tablet 1,000 mg PO BID 05/12/20 11/29/23 History mirabegron 50 mg tablet,extended 50 mg PO DAILY 05/12/20 11/29/23 History release 24 hr (Myrbetriq) nystatin 100,000 unit/gram topical 1 applic topical BID PRN Rash 05/12/20 11/29/23 History cream omega-3 fatty acids 1,000 mg 1,000 mg PO DAILY 05/12/20 11/29/23 History capsule (Fish Oil Concentrate) simvastatin 5 mg tablet 5 mg PO DAILY 05/12/20 11/29/23 History dulaglutide 3 mg/0.5 mL 3 mg subcut WEEKLY 05/10/21 11/29/23 History subcutaneous pen injector (Trulicity) glipizide 10 mg tablet, extended 20 mg PO DAILY 05/10/21 11/29/23 History release 24 hr aspirin 81 mg tablet,delayed 81 mg PO DAILY 11/15/22 11/29/23 History release (Adult Aspirin Regimen) albuterol sulfate 90 mcg/actuation 1 inh inhalation Q4H PRN Shortness 05/15/23 11/29/23 History aerosol inhaler Of Breath Or Wheezing fluticasone fur. 200 mcg-umeclid 1 inh inhalation DAILY 05/15/23 11/29/23 History 62.5 mcg-vilant 25 mcg inhalat.powder (Trelegy Ellipta) insulin glargine-yfgn 100 unit/mL 16 unit subcut HS 05/15/23 11/29/23 History (3 mL) subcutaneous pen (Semglee (insulin glargine-yfgn) Pen) hydrochlorothiazide 25 mg tablet 25 mg PO DAILY #90 tabs 11/08/23 11/29/23 Rx insulin aspart U-100 100 unit/mL 10 unit subcut TIDWM 11/29/23 11/29/23 History (3 mL) subcutaneous pen insulin glargine-yfgn 100 unit/mL 16 unit subcut HS 11/29/23 11/29/23 History (3 mL) subcutaneous pen (Semglee (insulin glargine-yfgn) Pen) ketoconazole 2 % topical cream 1 applic topical BID 11/29/23 11/29/23 History montelukast 10 mg tablet 10 mg PO HS 11/29/23 11/29/23 History amoxicillin 875 mg-potassium 1 tablet PO Q12H #10 tabs 11/30/23 Rx clavulanate 125 mg tablet azithromycin 500 mg tablet 500 mg PO DAILY 3 days #3 tabs 11/30/23 Rx clindamycin HCl 150 mg capsule 450 mg (3 x 150 mg) PO TID 7 days 12/03/23 Rx #63 caps Allergies Allergy/AdvReac Type Severity Reaction Status Date / Time cefaclor (From [facility]) Allergy Unknown RASH Verified 04/27/24 06:12 Sulfa (Sulfonamide AdvReac Unknown Unknown Verified 12/06/23 16:30 Antibiotics) Vital Signs Vital Signs - 24 hr 04/26/24 20:50 04/27/24 01:45 04/27/24 02:47 Temperature 98.0 F Pulse Rate 104 H 99 85 Respiratory Rate 19 15 15 Blood Pressure 112/48 L 106/48 L 109/67 Pulse Oximetry 95 98 98 Oxygen Delivery 04/27/24 03:44 04/27/24 06:52 04/27/24 08:00 Temperature 97.8 F Pulse Rate 81 77 Respiratory Rate 15 20 Blood Pressure 118/56 L 100/41 L Pulse Oximetry 98 100 Oxygen Delivery Room Air Exam Narrative: states trying to have BM currently Const: General: comfortable H&P: Results Labs Labs: Short CBC 04/26/24 Range/Units 23:48 WBC 21.7 H (4.5-10.0) K/mm3 Hgb 11.0 L (12.0-15.0) g/dL Hct 33.1 L (37.0-47.0) % Plt Count 525 H (150-375) k/mm3 BMP 04/26/24 23:48 Sodium 131 L Potassium 3.2 L Chloride 95 L Carbon Dioxide 29 BUN 15 D Creatinine 0.70 Glucose 221 H Calcium 9.1 Liver Function 04/26/24 Range/Units 23:48 Total Bilirubin 0.6 (0.2-1.3) mg/dL AST 22 (14-36) U/L ALT 15 (6-35) U/L Alkaline Phosphatase 102 (38-126) U/L Albumin 3.6 (3.5-5.1) g/dL Urine 04/27/24 Range/Units 03:02 Urine Color Yellow (Yellow) Urine Appearance Clear (Clear) Urine pH 5.0 (5.0-9.0) Ur Specific [place] > 1.045 H (1.001-1.035) Urine Protein Negative (Negative) mg/dL Urine Glucose (UA) 3+ H (Negative) mg/dL Assessment and Plan Assessment and plan (1) Hypokalemia: Code(s): E87.6 - Hypokalemia Status: Acute Assessment and Plan: K was replaced in ed monitor (2) Abscess: Code(s): L02.91 - Cutaneous abscess, unspecified Status: Acute Assessment and Plan: few days draining and painfull Blood and wound cultures were collected (3) Diabetes: Code(s): E11.9 - Type 2 diabetes mellitus without complications Status: Chronic Assessment and Plan: will stop home glipizide, trulicity and insulin 16 units semglee, ss with meals, metformin Accuckeck ac/hs will start on ss, hypoglycemia protocol, add 11 units of lantus and monitor-adjust as needed hga1c ordered (4) Dyslipidemia: Code(s): E78.5 - Hyperlipidemia, unspecified Status: Chronic Assessment and Plan: continue home statin (5) Hypertension: Code(s): I10 - Essential (primary) hypertension Status: Chronic Assessment and Plan: home hctz, losartan will review bp and resume home meds once the list is completed and updated (6) Congestive heart failure: Code(s): I50.9 - Heart failure, unspecified Status: Chronic Assessment and Plan: home regimen: jardiance, hctz, losartan (7) Overactive bladder: Code(s): N32.81 - Overactive bladder Status: Acute Assessment and Plan: continue home myrbetriq Plan pt is full code home medications will be reviewed and restarted once home med list is completed DVT prophyl. will add SCDs for now as might be going to surgery. Once surgery does eval- will start on lovenox prophylaxis Quality VTE Prophylaxis VTE prophylaxis: mechanical ordered Hospitalist MIPS Advance Care Plan I have confirmed that the patient's Advanced Care Plan is present, code status is documented, or surrogate decision maker is listed in patient medical record.: Yes Medication Reconciliation I have utilized all available resources to obtain, update and review the patients current medications (includes all prescriptions, OTC, herbals, cannabis, and nutritional supplements).: Yes
[2024-04-27 09:48] LABS: Hemoglobin A1C 7.5 % (<5.7)
--- NOTE | 2024-04-27 10:07 | P.CONGS_ITS ---
Assessment and Plan Assessment and plan (1) Abscess: Code(s): L02.91 - Cutaneous abscess, unspecified Status: Acute Assessment and Plan: * CT scan reviewed and shows evidence of cellulitis of the right buttock, but no CT evidence of abscess. On exam, patient has two separate abscesses one on the right of her sacrum and another more laterally on the right buttocks, both with some necrotic skin with purulent drainage. It note entirely clear how she developed these abscesses, but could have been pressure related. We would recommend proceeding with debridement and incision and drainage of the buttocks abscesses, which will be done by Dr. Foster. Description of the procedure, risks, benefits, alternatives, and expected recovery/wound care were discussed with the patient in detail. She agrees to proceed. We will keep her NPO, continue IV antibiotics, and proceed to the OR today. (2) Sepsis: Code(s): A41.9 - Sepsis, unspecified organism Status: Acute Assessment and Plan: * Leukocytosis with fever and tachycardia on admission. Possibly related to abscesses. White blood cell count trending down. (3) Fecal impaction in rectum: Code(s): K56.41 - Fecal impaction Status: Acute Assessment and Plan: * Patient appears constipated on CT with a stool ball in the rectum. Will give a Fleet's enema. (4) Diabetes: Code(s): E11.9 - Type 2 diabetes mellitus without complications Status: Chronic (5) Aortic stenosis: Code(s): I35.0 - Nonrheumatic aortic (valve) stenosis Status: Chronic Assessment and Plan: * Echocardiogram from July of 2023 showing moderate aortic stenosis. (6) Congestive heart failure: Code(s): I50.9 - Heart failure, unspecified Status: Chronic Assessment and Plan: * Echo in July showed an EF of 65-70%. (7) Hypertension: Code(s): I10 - Essential (primary) hypertension Status: Chronic Plan I have discussed the patient's case and plan of care with Dr. Foster. Thank you for allowing us to see the patient in consultation and we will continue to follow along with you. History of Present Illness Consult details Consult date: 04/27/24 Reason for consult: other (Infected decubitus ulcers) Requesting physician: Alexia Lou PA-C Narrative: This is a 79-year-old woman with PMH of insulin-dependent diabetes mellitus, moderate aortic stenosis, diastolic dysfunction, remote history of a stroke and now wheelchair bound, who we have been asked to see in surgical consultation for possible infected decubitus ulcers. She presented to the ED yesterday from [facility] for evaluation of wounds on her buttocks. Her son, Ty, is at the bedside, and helped aid in providing some additional history with her permission. She has noticed some pain primarily on the right buttocks over the past few days. She denies a history of any decubitus ulcers or abscesses in the past. She has had a steady decline in her activity over the past year that resulted in her [facility] assisted living [facility]. She has been primarily wheelchair-bound for the past 5-6 years following her stroke. She previously was able to transfer from bed to motorized chair on her own, but over the past few months she has required assistance to stand and pivot to the chair. She spends most of her day in the wheelchair at the [facility]. She reports that over the weekends, there is less help at the [facility] and she has been sitting for longer periods of time without assistance. She is incontinent and wears a depends. She has noticed some pain in the sacral area and right buttock, which she reportedly had a staff member at the [facility] tried to express drainage out of at least 1 of these areas over the weekend. She reports the pain got worse after this episode and she developed a fever yesterday, which prompted her transfer to the ED. She has been afebrile since admission. [place] [address], sodium 131, potassium 3.2, glucose 221, hemoglobin A1c 7.5, lactic acid 1.5, CRP 8.3. CT scan of the abdomen and pelvis showed stool distending the rectum, and partially visualized fat stranding in the right buttocks consistent with cellulitis, no abscess. She was admitted to the hospitalist service and started on broad-spectrum IV antibiotics. She is now seen on the medical floor with the nurse at the bedside. It does not appear she has received any enemas or bowel stimulation and has not had any bowel movements. Her only complaint at this time is the pain in her buttocks. Review of Systems 2 Review of Systems: All systems reviewed & are unremarkable except as noted in HPI and below [facility] Past Medical History Medical History Congestive heart failure Aortic stenosis Anemia Arthritis Stroke Skin cancer Diabetes Surgical History Surgical History History of appendectomy Family History Family History Mother Acute myocardial infarction Hypertension Sibling Acute myocardial infarction Social History Social History Smoking status: Never smoker Alcohol intake: never Substance use: never Do You Feel Safe in your Home?: Yes Lack of Transportation: No Lack of Food: Never True Current Housing: I Have Housing Concerned About Future Housing: No Difficulty Paying Gas/Electric Bills: No Difficulty Paying for Meds: No Currently Unemployed: No Education: Bachelor's Degree Difficulty w/ Childcare or Family Care: No Spiritual care concerns: No Meds Home Medications and Allergies Home Medications ?Medication ?Instructions ?Recorded ?Confirmed ?Type acetaminophen 500 mg tablet 500 mg PO Q6H PRN Pain (Scale 05/12/20 11/29/23 History Score 1-3) ascorbic acid (vitamin C) 500 mg 1,000 mg PO DAILY 05/12/20 11/29/23 History capsule blood sugar diagnostic (Contour #10 ea 05/12/20 11/29/23 History Next Test Strips) cholecalciferol (vitamin D3) 125 125 mcg PO DAILY 05/12/20 11/29/23 History mcg (5,000 unit) capsule cyanocobalamin (vitamin B-12) 100 mcg subcut MONTHLY 05/12/20 11/29/23 History 1,000 mcg/mL injection solution empagliflozin 25 mg tablet 25 mg PO DAILY 05/12/20 11/29/23 History (Jardiance) ferrous fumarate 325 mg (106 mg 325 mg PO DAILY 05/12/20 11/29/23 History iron) tablet losartan 25 mg tablet 12.5 mg PO DAILY 05/12/20 11/29/23 History magnesium oxide 250 mg PO DAILY 05/12/20 11/29/23 History meclizine 25 mg tablet 25 mg PO TID PRN Dizziness 05/12/20 11/29/23 History metformin 1,000 mg tablet 1,000 mg PO BID 05/12/20 11/29/23 History mirabegron 50 mg tablet,extended 50 mg PO DAILY 05/12/20 11/29/23 History release 24 hr (Myrbetriq) nystatin 100,000 unit/gram topical 1 applic topical BID PRN Rash 05/12/20 11/29/23 History cream omega-3 fatty acids 1,000 mg 1,000 mg PO DAILY 05/12/20 11/29/23 History capsule (Fish Oil Concentrate) simvastatin 5 mg tablet 5 mg PO DAILY 05/12/20 11/29/23 History dulaglutide 3 mg/0.5 mL 3 mg subcut WEEKLY 05/10/21 11/29/23 History subcutaneous pen injector (Trulicity) glipizide 10 mg tablet, extended 20 mg PO DAILY 05/10/21 11/29/23 History release 24 hr aspirin 81 mg tablet,delayed 81 mg PO DAILY 11/15/22 11/29/23 History release (Adult Aspirin Regimen) albuterol sulfate 90 mcg/actuation 1 inh inhalation Q4H PRN Shortness 05/15/23 11/29/23 History aerosol inhaler Of Breath Or Wheezing fluticasone fur. 200 mcg-umeclid 1 inh inhalation DAILY 05/15/23 11/29/23 History 62.5 mcg-vilant 25 mcg inhalat.powder (Trelegy Ellipta) insulin glargine-yfgn 100 unit/mL 16 unit subcut HS 05/15/23 11/29/23 History (3 mL) subcutaneous pen (Semglee (insulin glargine-yfgn) Pen) hydrochlorothiazide 25 mg tablet 25 mg PO DAILY #90 tabs 11/08/23 11/29/23 Rx insulin aspart U-100 100 unit/mL 10 unit subcut TIDWM 11/29/23 11/29/23 History (3 mL) subcutaneous pen insulin glargine-yfgn 100 unit/mL 16 unit subcut HS 11/29/23 11/29/23 History (3 mL) subcutaneous pen (Semglee (insulin glargine-yfgn) Pen) ketoconazole 2 % topical cream 1 applic topical BID 11/29/23 11/29/23 History montelukast 10 mg tablet 10 mg PO HS 11/29/23 11/29/23 History amoxicillin 875 mg-potassium 1 tablet PO Q12H #10 tabs 11/30/23 Rx clavulanate 125 mg tablet azithromycin 500 mg tablet 500 mg PO DAILY 3 days #3 tabs 11/30/23 Rx clindamycin HCl 150 mg capsule 450 mg (3 x 150 mg) PO TID 7 days 12/03/23 Rx #63 caps Allergies Allergy/AdvReac Type Severity Reaction Status Date / Time cefaclor (From [facility]) Allergy Unknown RASH Verified 04/27/24 06:12 Sulfa (Sulfonamide AdvReac Unknown Unknown Verified 12/06/23 16:30 Antibiotics) Vital Signs Vital Signs - 24 hr 04/26/24 20:50 04/27/24 01:45 04/27/24 02:47 Temperature 98.0 F Pulse Rate 104 H 99 85 Respiratory Rate 19 15 15 Blood Pressure 112/48 L 106/48 L 109/67 Pulse Oximetry 95 98 98 Oxygen Delivery 04/27/24 03:44 04/27/24 06:52 04/27/24 08:00 Temperature 97.8 F Pulse Rate 81 77 Respiratory Rate 15 20 Blood Pressure 118/56 L 100/41 L Pulse Oximetry 98 100 Oxygen Delivery Room Air Exam 2 Const: General: comfortable and no acute distress Nutritional Appearance: a verage body habitus Orientation/consciousness: patient oriented x3 HENMT: Head: normocephalic and atraumatic Ears: hearing grossly normal bilaterally Mouth: Yes moist mucous membranes Eyes: General: appearance normal, both eyes and all related structures P upils: Equal, round and reactive pupils present Neck: Neck: normal visual inspection and full ROM Resp: Effort & Inspection: no respiratory distress Auscultation: clear to auscultation bilaterally Cardio: Rate: regular rate Rhythm: regular rhythm Heart sounds: Murmur heart sound present systolic Peripheral pulses: Peripheral pulses 2+ throughout GI: Inspection: non-distended GI Palp: Yes Soft to palpation, No Tenderness to palpation present (GI), No Guarding due to palpation present (GI) and No Rebound tenderness present Auscultation: normal bowel sounds Skin: General skin exam: normal color Other: Diffuse dermatitis across over the mons pubis and bilateral groin in the distribution of a diaper that extends inferiorly across the perineum and to the buttocks. The skin is red and macerated in this area. Full body images: 1. There is a 4 x 5 cm area of erythema and induration with purulent drainage coming from the center of the abscess where there is a small area of yellow slough and necrotic skin. 2. Another separate 7 x 9 cm area of rafaela thema and induration with a small area of some ischemic and necrotic skin in the center with bloody purulent drainage oozing from the center, consistent with an abscess. She is tender over both areas, but more so over the lateral abscess. Neuro: General: no focal motor deficits Speech: normal speech Extrem: General: normal to inspection and no edema Psych: Mental Status: mental status grossly normal Attitude: cooperative Insight: Fair insight present (Psych) Judgement: Fair judgement present (Psych) Results Labs 04/27/24 10:42 04/27/24 10:42 Labs: Abnormal lab results 04/26/24 04/27/24 04/27/24 Range/Units 23:48 03:02 08:16 WBC 21.7 H (4.5-10.0) K/mm3 RBC 3.79 L (4.2-5.4) M/mm3 Hgb 11.0 L (12.0-15.0) g/dL Hct 33.1 L (37.0-47.0) % Plt Count 525 H (150-375) k/mm3 Immature Gran % (Auto) 0.7 H (0-0.5) % Neut % (Auto) 80.7 H (45.5-73.1) % Lymph % (Auto) 11.6 L (18.3-44.2) % [place] # (Auto) 1.5 H (0.1-0.6) K/mm3 Abs Immat Gran (auto) 0.16 H (0.00-0.031) K/mm3 Absolute Neuts (auto) 17.5 H (1.3-6.7) K/mm3 ESR 125 H (0-20) mm/hr Sodium 131 L (137-145) mmol/L Potassium 3.2 L (3.4-5.0) mmol/L Chloride 95 L (98-107) mmol/L Glucose 221 H (65-110) mg/dL POC Capillary Glucose 118 H (65-105) mg/dl Hemoglobin A1c 7.5 H (<5.7) % C-Reactive Protein 8.3 H (<1.0) mg/dL Ur Specific [place] > 1.045 H (1.001-1.035) Urine Glucose (UA) 3+ H (Negative) mg/dL Urine Ketones 1+ H (Negative) mg/dL Leukocyte Esterase Rfl 1+ H (Negative) KAIDEN/UL Urine WBC 21-50 H (0-3) /hpf Urine Bacteria 4+ H /hpf Diabetes panel 04/26/24 Range/Units 23:48 Sodium 131 L (137-145) mmol/L Potassium 3.2 L (3.4-5.0) mmol/L Chloride 95 L (98-107) mmol/L Carbon Dioxide 29 (22-30) mmol/L BUN 15 D (7-17) mg/dL Creatinine 0.70 (0.7-1.0) mg/dL Glucose 221 H (65-110) mg/dL Hemoglobin A1c 7.5 H (<5.7) % Calcium 9.1 (8.4-10.2) mg/dL AST 22 (14-36) U/L ALT 15 (6-35) U/L Alkaline Phosphatase 102 (38-126) U/L Total Protein 8.0 (6.3-8.2) g/dL Albumin 3.6 (3.5-5.1) g/dL Calcium panel 04/26/24 Range/Units 23:48 Calcium 9.1 (8.4-10.2) mg/dL Albumin 3.6 (3.5-5.1) g/dL Pituitary panel 04/26/24 Range/Units 23:48 Sodium 131 L (137-145) mmol/L Potassium 3.2 L (3.4-5.0) mmol/L Chloride 95 L (98-107) mmol/L Carbon Dioxide 29 (22-30) mmol/L BUN 15 D (7-17) mg/dL Creatinine 0.70 (0.7-1.0) mg/dL Glucose 221 H (65-110) mg/dL Calcium 9.1 (8.4-10.2) mg/dL Adrenal panel 04/26/24 Range/Units 23:48 Sodium 131 L (137-145) mmol/L Potassium 3.2 L (3.4-5.0) mmol/L Chloride 95 L (98-107) mmol/L Carbon Dioxide 29 (22-30) mmol/L BUN 15 D (7-17) mg/dL Creatinine 0.70 (0.7-1.0) mg/dL Glucose 221 H (65-110) mg/dL Calcium 9.1 (8.4-10.2) mg/dL Total Bilirubin 0.6 (0.2-1.3) mg/dL AST 22 (14-36) U/L ALT 15 (6-35) U/L Alkaline Phosphatase 102 (38-126) U/L Total Protein 8.0 (6.3-8.2) g/dL Albumin 3.6 (3.5-5.1) g/dL All other labs normal. Imaging Additional studies: ITS Impressions Abdomen/Pelvis CT 04/27/24 06:34 IMPRESSION: 1. Stool distends the rectum. 2. Partially visualized fat stranding in the right buttocks, consistent with cellulitis. No abscess.
[2024-04-27 10:51] LABS: Hematocrit 34.2 % (37.0-47.0); Hemoglobin 11.1 g/dL (12.0-15.0); Mean Corpuscular HGB Conc 32.5 g/dl (32-36); Mean Corpuscular Hemoglobin 28.8 pg (26-34); Mean Corpuscular Volume 88.6 fl (80-100); Platelet Count Result 505 k/mm3 (150-375); Red Blood Count 3.86 M/mm3 (4.2-5.4); Red Cell Distribution Width 13.7 % (11.5-14.5); White Blood Count 17.8 K/mm3 (4.5-10.0)
[2024-04-27 11:06] LABS: Anion Gap 4 mmol/L (4-12); Blood Urea Nitrogen 11 mg/dL (7-17); Calcium 8.8 mg/dL (8.4-10.2); Carbon Dioxide 30 mmol/L (22-30); Chloride 99 mmol/L (98-107); Estimated CRCL calculation 63 ml/min; Estimated Glomerular Filt Rate > 60; Glucose 127 mg/dL (65-110); Magnesium 2.2 mg/dL (1.6-2.3); Potassium 3.9 mmol/L (3.4-5.0); Sodium 133 mmol/L (137-145)
[2024-04-27 11:52] LABS: Glucose Point of Care 132 mg/dl (65-105)
[2024-04-27] MEDS: SODIUM CHLORIDE 0.9% IV 1,000 ML 100 ML IV CONT (12:38)
--- NOTE | 2024-04-27 13:30 | WPDANESEPPF ---
Anes - Initial Pre Proc Eval Procedure: Operation Date: 04/27/24 16:30 Proposed Procedures p Incision and Drainage Buttock Abscess Times Carlie - Clarke Foster DO Date/Time: 04/27/24 13:30 Surgeon: Neena Torres MD Pre Op Diagnosis: Abscess Patient Data Age: 79 Gender: F Height: 1.7 m Weight: 76.4 kg Last Vital Signs Temp 36.6 C 04/27/24 08:00 Pulse 77 04/27/24 08:00 Resp 20 04/27/24 08:00 BP 100/41 L 04/27/24 08:00 Pulse Ox 100 04/27/24 08:00 O2 Del Method Room Air 04/27/24 06:52 Allergies Allergy/AdvReac Type Severity Reaction Status Date / Time cefaclor (From Ceclor) Allergy Unknown RASH Verified 04/27/24 06:12 Sulfa (Sulfonamide AdvReac Unknown Unknown Verified 12/06/23 16:30 Antibiotics) Home Medications ?Medication ?Instructions ?Recorded ?Confirmed ?Type acetaminophen 500 mg tablet 500 mg PO Q6H PRN Pain (Scale 05/12/20 11/29/23 History Score 1-3) ascorbic acid (vitamin C) 500 mg 1,000 mg PO DAILY 05/12/20 11/29/23 History capsule blood sugar diagnostic (Contour #10 ea 05/12/20 11/29/23 History Next Test Strips) cholecalciferol (vitamin D3) 125 125 mcg PO DAILY 05/12/20 11/29/23 History mcg (5,000 unit) capsule cyanocobalamin (vitamin B-12) 100 mcg subcut MONTHLY 05/12/20 11/29/23 History 1,000 mcg/mL injection solution empagliflozin 25 mg tablet 25 mg PO DAILY 05/12/20 11/29/23 History (Jardiance) ferrous fumarate 325 mg (106 mg 325 mg PO DAILY 05/12/20 11/29/23 History iron) tablet losartan 25 mg tablet 12.5 mg PO DAILY 05/12/20 11/29/23 History magnesium oxide 250 mg PO DAILY 05/12/20 11/29/23 History meclizine 25 mg tablet 25 mg PO TID PRN Dizziness 05/12/20 11/29/23 History metformin 1,000 mg tablet 1,000 mg PO BID 05/12/20 11/29/23 History mirabegron 50 mg tablet,extended 50 mg PO DAILY 05/12/20 11/29/23 History release 24 hr (Myrbetriq) nystatin 100,000 unit/gram topical 1 applic topical BID PRN Rash 05/12/20 11/29/23 History cream omega-3 fatty acids 1,000 mg 1,000 mg PO DAILY 05/12/20 11/29/23 History capsule (Fish Oil Concentrate) simvastatin 5 mg tablet 5 mg PO DAILY 05/12/20 11/29/23 History dulaglutide 3 mg/0.5 mL 3 mg subcut WEEKLY 05/10/21 11/29/23 History subcutaneous pen injector (Trulicity) glipizide 10 mg tablet, extended 20 mg PO DAILY 05/10/21 11/29/23 History release 24 hr aspirin 81 mg tablet,delayed 81 mg PO DAILY 11/15/22 11/29/23 History release (Adult Aspirin Regimen) albuterol sulfate 90 mcg/actuation 1 inh inhalation Q4H PRN Shortness 05/15/23 11/29/23 History aerosol inhaler Of Breath Or Wheezing fluticasone fur. 200 mcg-umeclid 1 inh inhalation DAILY 05/15/23 11/29/23 History 62.5 mcg-vilant 25 mcg inhalat.powder (Trelegy Ellipta) insulin glargine-yfgn 100 unit/mL 16 unit subcut HS 05/15/23 11/29/23 History (3 mL) subcutaneous pen (Semglee (insulin glargine-yfgn) Pen) hydrochlorothiazide 25 mg tablet 25 mg PO DAILY #90 tabs 11/08/23 11/29/23 Rx insulin aspart U-100 100 unit/mL 10 unit subcut TIDWM 11/29/23 11/29/23 History (3 mL) subcutaneous pen insulin glargine-yfgn 100 unit/mL 16 unit subcut HS 11/29/23 11/29/23 History (3 mL) subcutaneous pen (Semglee (insulin glargine-yfgn) Pen) ketoconazole 2 % topical cream 1 applic topical BID 11/29/23 11/29/23 History montelukast 10 mg tablet 10 mg PO HS 11/29/23 11/29/23 History amoxicillin 875 mg-potassium 1 tablet PO Q12H #10 tabs 11/30/23 Rx clavulanate 125 mg tablet azithromycin 500 mg tablet 500 mg PO DAILY 3 days #3 tabs 11/30/23 Rx clindamycin HCl 150 mg capsule 450 mg (3 x 150 mg) PO TID 7 days 12/03/23 Rx #63 caps Laboratory Tests 04/26/24 04/27/24 04/27/24 23:48 00:51 03:02 WBC 21.7 H K/mm3 (4.5-10.0) RBC 3.79 L M/mm3 (4.2-5.4) Hgb 11.0 L g/dL (12.0-15.0) Hct 33.1 L % (37.0-47.0) MCV 87.3 fl (80-100) MCH 29.0 pg (26-34) MCHC 33.2 g/dl (32-36) RDW 13.8 % (11.5-14.5) Plt Count 525 H k/mm3 (150-375) MPV 8.4 fl (7.4-10.4) Immature Gran % (Auto) 0.7 H % (0-0.5) Neut % (Auto) 80.7 H % (45.5-73.1) Lymph % (Auto) 11.6 L % (18.3-44.2) [place] % (Auto) 6.7 % (2.6-8.5) Eos % (Auto) 0.1 % (0-4.4) Baso % (Auto) 0.2 % (0.2-1.2) Lymph # (Auto) 2.52 K/mm3 (0.9-3.2) [place] # (Auto) 1.5 H K/mm3 (0.1-0.6) Eos # (Auto) 0.0 K/mm3 (0-0.3) Baso # (Auto) 0.1 K/mm3 (0.0-0.1) Abs Immat Gran (auto) 0.16 H K/mm3 (0.00-0.031) Absolute Neuts (auto) 17.5 H K/mm3 (1.3-6.7) Absolute Nucleated RBC 0.000 K/mm3 (0.0-0.012) Nucleated RBC % 0.0 % (0.0-0.2) Platelet Estimate Increased (Adequate) Anisocytosis 1+ Schistocytes None seen ESR 125 H mm/hr (0-20) Sodium 131 L mmol/L (137-145) Potassium 3.2 L mmol/L (3.4-5.0) Chloride 95 L mmol/L (98-107) Carbon Dioxide 29 mmol/L (22-30) Anion Gap 7 mmol/L (4-12) BUN 15 D mg/dL (7-17) Creatinine 0.70 mg/dL (0.7-1.0) Estim Creat Clear Calc Not Reportable Estimated GFR > 60 (59 - ) Glucose 221 H mg/dL (65-110) POC Capillary Glucose Hemoglobin A1c 7.5 H % (<5.7) Lactic Acid 1.5 mmol/L (0.7-2.0) Calcium 9.1 mg/dL (8.4-10.2) Magnesium 2.2 mg/dL (1.6-2.3) Total Bilirubin 0.6 mg/dL (0.2-1.3) AST 22 U/L (14-36) ALT 15 U/L (6-35) Alkaline Phosphatase 102 U/L (38-126) C-Reactive Protein 8.3 H mg/dL (<1.0) Total Protein 8.0 g/dL (6.3-8.2) Albumin 3.6 g/dL (3.5-5.1) Urine Color Yellow (Yellow) Urine Appearance Clear (Clear) Urine pH 5.0 (5.0-9.0) Ur Specific [place] > 1.045 H (1.001-1.035) Urine Protein Negative mg/dL (Negative) Urine Glucose (UA) 3+ H mg/dL (Negative) Urine Ketones 1+ H mg/dL (Negative) Ur Blood (Man) Negative (Negative) Urine Nitrate Negative (Negative) Urine Bilirubin Negative (Negative) Urine Urobilinogen 0.2 mg/dL (<2.0) Leukocyte Esterase Rfl 1+ H KAIDEN/UL (Negative) Urine RBC 0-2 /hpf (0-2) Urine WBC 21-50 H /hpf (0-3) Ur Squamous Epith Cells None seen /hpf (Few) Urine Bacteria 4+ H /hpf Urine Casts 0-2 04/27/24 04/27/24 04/27/24 08:16 10:42 11:39 WBC 17.8 H K/mm3 (4.5-10.0) RBC 3.86 L M/mm3 (4.2-5.4) Hgb 11.1 L g/dL (12.0-15.0) Hct 34.2 L % (37.0-47.0) MCV 88.6 fl (80-100) MCH 28.8 pg (26-34) MCHC 32.5 g/dl (32-36) RDW 13.7 % (11.5-14.5) Plt Count 505 H k/mm3 (150-375) MPV 8.0 fl (7.4-10.4) Immature Gran % (Auto) Neut % (Auto) Lymph % (Auto) [place] % (Auto) Eos % (Auto) Baso % (Auto) Lymph # (Auto) [place] # (Auto) Eos # (Auto) Baso # (Auto) Abs Immat Gran (auto) Absolute Neuts (auto) Absolute Nucleated RBC Nucleated RBC % Platelet Estimate Anisocytosis Schistocytes ESR Sodium 133 L mmol/L (137-145) Potassium 3.9 mmol/L (3.4-5.0) Chloride 99 mmol/L (98-107) Carbon Dioxide 30 mmol/L (22-30) Anion Gap 4 mmol/L (4-12) BUN 11 mg/dL (7-17) Creatinine 0.60 L mg/dL (0.7-1.0) Estim Creat Clear Calc 63 ml/min Estimated GFR > 60 (59 - ) Glucose 127 H mg/dL (65-110) POC Capillary Glucose 118 H mg/dl 132 H mg/dl (65-105) (65-105) Hemoglobin A1c Lactic Acid Calcium 8.8 mg/dL (8.4-10.2) Magnesium 2.2 mg/dL (1.6-2.3) Total Bilirubin AST ALT Alkaline Phosphatase C-Reactive Protein Total Protein Albumin Urine Color Urine Appearance Urine pH Ur Specific [place] Urine Protein Urine Glucose (UA) Urine Ketones Ur Blood (Man) Urine Nitrate Urine Bilirubin Urine Urobilinogen Leukocyte Esterase Rfl Urine RBC Urine WBC Ur Squamous Epith Cells Urine Bacteria Urine Casts Patient hx anesthesia problems: none Family hx anesthesia problems: none Results Review: All pre-operative results and documents have been reviewed as part of the pre-operative evaluation. PMFSH Past Medical History Medical History Congestive heart failure Aortic stenosis Anemia Arthritis Stroke Skin cancer Diabetes Surgical History Surgical History History of appendectomy Family History Family History Mother Acute myocardial infarction Hypertension Sibling Acute myocardial infarction Social History Social History Smoking status: Never smoker Alcohol intake: never Substance use: never Do You Feel Safe in your Home?: Yes Lack of Transportation: No Lack of Food: Never True Current Housing: I Have Housing Concerned About Future Housing: No Difficulty Paying Gas/Electric Bills: No Difficulty Paying for Meds: No Currently Unemployed: No Education: Bachelor's Degree Difficulty w/ Childcare or Family Care: No Spiritual care concerns: No Anes - Eval Final PreProcedure Day of Procedure 04/27/24 13:30 Patient weight: overweight Heart: regular rate and rhythm Lungs: clear to auscultation Airway: Mallampati scale class II Neurological: alert and oriented Last oral intake: >/= 8 hours ASA classification: IV Emergent: no Anesthetic plan: proceed Anesthesia type and monitoring: general LMA and standard monitoring Results Review: All pre-operative results and documents have been reviewed as part of the pre-operative evaluation. Informed Consent: The patient's anesthetic plan and its attendant risks and benefits were discussed with the patient/family/POA. Questions were solicited and answers provided to the satisfaction of the patient/family/POA.
--- NOTE | 2024-04-27 13:49 | WPDHPUPDATE1 ---
History and Physical Update Update Date/Time: 04/27/24 13:49 History and Physical has been reviewed, including an updated exam of the patient. There are NO changes in the patient's condition. Risks, benefits, and alternatives have been discussed and questions answered. Patient agrees to proceed with procedure.
[2024-04-27 14:26] LABS: Glucose Point of Care 119 mg/dl (65-105)
[2024-04-27] MEDS: LACTATED RINGERS 1,000 ML 30 ML IV CONT (14:35)
[2024-04-27] MEDS: CEFEPIME 1 GM/NS 50 ML 1 GM/50 ML BAG IVPB (15:14)
--- NOTE | 2024-04-27 15:42 | SUR.OPER ---
Specimen Aerobic, anaerobic and gram stain of complex buttocks abcess x 2
--- NOTE | 2024-04-27 15:50 | W.PM.PROC2 ---
Procedure Note - Detailed Date of Procedure 04/27/24 Pre-op Diagnosis Buttock abscess Post-op Diagnosis Same Procedure Performed Incision and drainage of complex buttock abscess x2 Surgeon Clarke Foster, DO Anesthesia General and Local (0.5% bupivacaine with epinephrine) Indications This is a 79-year-old woman who presented to the emergency department with multiple wounds on her buttock region. She appeared to have an abscess in the right sacral region that appeared fluctuant with purulence drainage and then she had another buttock wound in the right superior gluteal region which also appeared fluctuant with purulence drainage. She was admitted and started on broad-spectrum antibiotics. Discussions were made with the patient about treatment options and decision was made to proceed with incision and drainage of buttock abscess x2. Findings The patient had a right sacral buttock abscess and a right superior gluteal buttock abscess. Incision and drainage was made over each of these areas. They did not appear to be communicating together underneath the skin. Each of on was complex with multiple loculations. After incision and drainage was performed and the loculations were broken up, the abscess cavity was irrigated with sterile saline and packed with half-inch iodoform gauze. The right superior gluteal buttock abscess was cultured with a culture swab. Description of Procedure Procedure as well as risks, benefits, and alternatives were discussed with the patient. Written consent was obtained and placed in chart prior to procedure. Patient was brought back to surgical suite. She was placed in left lateral decubitus position on the operating table. Time-out was done to confirm patient and procedure. She was then placed under anesthesia by the anesthesia department. Her buttock region was prepped and draped in sterile fashion using Betadine prep. 0.5% bupivacaine with epinephrine was infiltrated locally over each abscess area. A 2 cm cruciate incision was made over the right superior gluteal buttock abscess using a 15 blade scalpel. The abscess cavity was entered and a culture swab was used to obtain a culture and sensitivity from the deeper abscess fluid. Purulence fluid was drained. Loculations were broken up with a curved hemostat. The area was then irrigated with sterile saline and then packed with half-inch iodoform gauze. A 1.5 cm cruciate incision was then made over the right sacral buttock abscess using a 15 blade scalpel. The abscess cavity was entered and purulence fluid was drained. The loculations were then broken up with a curved hemostat. The wound was then irrigated with sterile saline and packed with half-inch iodoform gauze. 4 x 4 gauze, ABD pads, and Medipore tape were then applied. The patient was then awakened from anesthesia, extubated, and transferred to recovery. Estimated Blood Loss 10 Urine Output 75 Packing Yes (1/2 iodoform gauze) Complications No immediate complications Condition Stable Disposition Floor [facility] Billing Surgery - Charge Forward: Surgery Billing
--- NOTE | 2024-04-27 15:57 | SUR.OPER ---
buttocks abcess packed with iodoform gauze
[2024-04-27] MEDS: BUPIVACAINE/EPINEPHRINE 0.5% 50 ML VIAL 10 ML INFILTRATE (16:05)
[2024-04-27] MEDS: HYDROcodone/acetaminophen (*CRX) 5-325 MG TABLET 1 TAB PO (20:58)
[2024-04-27] MEDS: INSULIN GLARGINE (*BKC) 100 UNITS/ML 11 UNITS SUB-Q (20:59)
[2024-04-27 23:04] LABS: Glucose Point of Care 162 mg/dl (65-105)
[2024-04-28] VITALS (7 sets, daily range): BP systolic 106–130; BP diastolic 45–61; PULSE 74–90; RESP 14–20; TEMP 36.2–36.9; O2SAT 94–99
[2024-04-28] MEDS: CEFEPIME 1 GM/NS 50 ML 1 GM/50 ML BAG IVPB ×2 (03:56→14:22)
[2024-04-28] MEDS: metroNIDAZOLE 500 MG/ISO 100ML 500 MG/100 ML BAG 100 MG IVPB ×3 (05:10→21:12)
[2024-04-28] MEDS: VANCOMYCIN 1,250 MG/NS 250 ML 1,250 MG/250 ML BAG 166.67 MG IVPB ×2 (06:32→23:35)
[2024-04-28 06:45] LABS: Hematocrit 31.1 % (37.0-47.0); Mean Corpuscular HGB Conc 32.2 g/dl (32-36); Mean Corpuscular Hemoglobin 28.7 pg (26-34); Mean Corpuscular Volume 89.1 fl (80-100); Mean Platelet Volume 8.4 fl (7.4-10.4); Platelet Count Result 497 k/mm3 (150-375); Red Blood Count 3.49 M/mm3 (4.2-5.4); Red Cell Distribution Width 13.8 % (11.5-14.5); White Blood Count 14.6 K/mm3 (4.5-10.0)
[2024-04-28 06:57] LABS: Anion Gap 3 mmol/L (4-12); Blood Urea Nitrogen 10 mg/dL (7-17); Calcium 8.4 mg/dL (8.4-10.2); Carbon Dioxide 27 mmol/L (22-30); Chloride 103 mmol/L (98-107); Estimated CRCL calculation 63 ml/min; Estimated Glomerular Filt Rate > 60; Glucose 94 mg/dL (65-110); Potassium 3.2 mmol/L (3.4-5.0); Sodium 133 mmol/L (137-145)
--- NOTE | 2024-04-28 07:07 | P.PNGS_ITS ---
Progress Note: A&P Assessment and Plan (1) Abscess of buttock: Code(s): L02.31 - Cutaneous abscess of buttock Status: Acute Assessment and Plan: * Daily packing changes. Cultures pending. Continue broad spectrum antibiotics. (2) Sepsis: Code(s): A41.9 - Sepsis, unspecified organism Status: Acute (3) Congestive heart failure: Code(s): I50.9 - Heart failure, unspecified Status: Chronic (4) Diabetes: Code(s): E11.9 - Type 2 diabetes mellitus without complications Status: Chronic (5) Fecal impaction in rectum: Code(s): K56.41 - Fecal impaction Status: Acute Subjective Subjective Date/Time Seen: 04/28/24 07:07 Interval history: Pain controlled. No fevers. No significant events overnight. Exam Skin: Other: Buttock abscess dressing dry, no significant drainage, surrounding erythema improving. Objective Data Vital Signs Vital Signs: Vital Signs - 24 hr 04/27/24 08:00 04/27/24 08:00 04/27/24 13:38 Temperature 97.8 F 98.4 F Pulse Rate 77 84 Respiratory Rate 20 16 Blood Pressure 100/41 L 101/43 L Pulse Oximetry 100 100 Oxygen Delivery Room Air Oxygen Flow Rate 04/27/24 14:38 04/27/24 15:55 04/27/24 16:10 Temperature 98.4 F 98.1 F Pulse Rate 84 79 87 Respiratory Rate 18 14 19 Blood Pressure 124/45 L 122/56 L 114/51 L Pulse Oximetry 97 100 96 Oxygen Delivery Room Air Simple Face Mask Room Air Oxygen Flow Rate 8 04/27/24 16:25 04/27/24 16:40 04/27/24 16:55 Temperature 98.2 F Pulse Rate 86 83 88 Respiratory Rate 21 H 20 22 H Blood Pressure 107/70 111/49 L 116/49 L Pulse Oximetry 94 95 95 Oxygen Delivery Room Air Room Air Room Air Oxygen Flow Rate 04/27/24 17:24 04/27/24 17:47 04/27/24 18:49 Temperature 97.8 F 97.7 F 97.4 F L Pulse Rate 86 86 92 Respiratory Rate 16 18 18 Blood Pressure 104/48 L 125/71 110/57 L Pulse Oximetry 96 100 99 Oxygen Delivery Oxygen Flow Rate 04/27/24 22:32 04/28/24 00:45 Temperature 98.2 F 98.4 F Pulse Rate 94 90 Respiratory Rate 20 20 Blood Pressure 117/78 111/49 L Pulse Oximetry 98 99 Oxygen Delivery Oxygen Flow Rate Intake/Output Intake/Output: Intake & Output 04/25/24 04/26/24 04/27/24 04/28/24 23:59 23:59 23:59 23:59 Intake Total 980 150 Output Total 750 Balance 230 150 Meds/Results Medications: Active Medications Generic Name Dose Route Start Last Admin Trade Name Freq PRN Reason Stop Dose Admin Acetaminophen 500 mg 04/27/24 16:59 Acetaminophen 500 Mg Tablet PO Q6H PRN Pain Rated 1-3 Hydrocodone Bitart/Acetaminophen 1 tab 04/27/24 16:59 04/27/24 20:58 Hydrocodone/Acetaminophen (*Crx) 5-325 Mg Tablet PO 1 tab Q4H PRN Administration Pain Rated 4-6 Hydrocodone Bitart/Acetaminophen 1 tab 04/27/24 16:59 Hydrocodone/Acetaminophen (*Crx) 7.5-325 Mg Tablet PO Q4H PRN Pain Rated 7-10 Dextrose 12.5 gm 04/27/24 08:58 Dextrose 50% 25 Gm/50 Ml Syringe IV PUSH PRN PRN Hypoglycemia Protocol Enoxaparin Sodium 40 mg 04/28/24 09:00 Enoxaparin 40 Mg/0.4 Ml Syringe SUB-Q DAILY [facility] Fentanyl Citrate 25 mcg 04/27/24 14:56 Fentanyl Citrate Inj (*Crx) 100 Mcg/2 Ml Vial IV PUSH Q2M PRN Pain Glucagon 1 mg 04/27/24 08:58 Glucagon For Inj 1 Mg Vial IM PRN PRN Hypoglycemia Protocol Glucose 15 gm 04/27/24 08:58 Glucose Oral Gel 15 Gm Of Glucse In 37.5 Gm Tube PO PRN PRN Hypoglycemia Protocol Metronidazole 500 mg in 100 mls @ 100 mls/hr 04/27/24 14:00 04/28/24 05:10 Flagyl 500 Mg/Iso Soln 100 Ml IVPB 100 mls/hr Q8HR [facility] Administration Cefepime HCl 1 gm in 50 mls @ 100 mls/hr 04/27/24 15:00 04/28/24 06:28 Maxipime 1 Gm/Ns 50 Ml IVPB Infused Q12H [facility] Infusion Vancomycin HCl 1,250 mg in 250 mls @ 166.667 mls/hr 04/28/24 06:00 04/28/24 06:32 Vancomycin 1,250 Mg/Ns 250 Ml IVPB 166.67 mls/hr Q24H [facility] Administration Dextrose 1,000 mls @ 100 mls/hr 04/27/24 08:58 Dextrose 5% 1,000 Ml IVPB PRN PRN Hypoglycemia Protocol Insulin Aspart 2 - 5 units 04/27/24 12:00 04/27/24 19:14 Insulin Aspart (*Bkc) 100 Units/Ml SUB-Q Not Given TIDWM [facility] Protocol Insulin Glargine 11 units 04/27/24 21:00 04/27/24 20:59 Insulin Glargine (*Bkc) 100 Units/Ml 0.15 units/kg (11 units) 11 units SUB-Q Administration HS [facility] Morphine Sulfate 2 mg 04/27/24 16:59 Morphine Sulfate (*Crx) 2 Mg/Ml Inj IV PUSH Q2H PRN Breakthrough Pain Rated 4-6 or NPO Morphine Sulfate 4 mg 04/27/24 16:59 Morphine Sulfate (*Crx) 4 Mg/Ml Inj IV PUSH Q2H PRN Breakthrough Pain Rated 7-10 or NPO Naloxone HCl 0.1 mg 04/27/24 16:59 Naloxone Hcl 0.4 Mg/Ml Vial IV PUSH Q2M PRN Opiate Reversal Ondansetron HCl 4 mg 04/27/24 16:59 Ondansetron Inj 4 Mg/2 Ml Vial IV PUSH Q4H PRN Nausea And Vomiting Radiology Results: ITS Impressions Abdomen/Pelvis CT 04/27/24 06:34 IMPRESSION: 1. Stool distends the rectum. 2. Partially visualized fat stranding in the right buttocks, consistent with cellulitis. No abscess. Labs Labs: Laboratory Results - last 24 hr 04/26/24 04/27/24 04/27/24 23:48 08:16 10:42 WBC 17.8 H RBC 3.86 L Hgb 11.1 L Hct 34.2 L MCV 88.6 MCH 28.8 MCHC 32.5 RDW 13.7 Plt Count 505 H MPV 8.0 Sodium 133 L Potassium 3.9 Chloride 99 Carbon Dioxide 30 Anion Gap 4 BUN 11 Creatinine 0.60 L Estim Creat Clear Calc 63 Estimated GFR > 60 Glucose 127 H POC Capillary Glucose 118 H Hemoglobin A1c 7.5 H Calcium 8.8 Magnesium 2.2 04/27/24 04/27/24 04/27/24 11:39 14:24 20:09 WBC RBC Hgb Hct MCV MCH MCHC RDW Plt Count MPV Sodium Potassium Chloride Carbon Dioxide Anion Gap BUN Creatinine Estim Creat Clear Calc Estimated GFR Glucose POC Capillary Glucose 132 H 119 H 162 H Hemoglobin A1c Calcium Magnesium 04/28/24 05:50 WBC 14.6 H RBC 3.49 L Hgb 10.0 L Hct 31.1 L MCV 89.1 MCH 28.7 MCHC 32.2 RDW 13.8 Plt Count 497 H MPV 8.4 Sodium 133 L Potassium 3.2 L Chloride 103 Carbon Dioxide 27 Anion Gap 3 L BUN 10 Creatinine 0.60 L Estim Creat Clear Calc 63 Estimated GFR > 60 Glucose 94 POC Capillary Glucose Hemoglobin A1c Calcium 8.4 Magnesium
[2024-04-28 08:01] LABS: Glucose Point of Care 125 mg/dl (65-105)
--- NOTE | 2024-04-28 08:36 | PM.IMPN ---
Progress Note: A&P Assessment and Plan (1) Hypokalemia: Code(s): E87.6 - Hypokalemia Status: Acute Assessment and Plan: K was replaced in ed monitor (2) Abscess: Code(s): L02.91 - Cutaneous abscess, unspecified Status: Deleted Assessment and Plan: Blood and wound cultures were collected -follow gen surgery consult I/D 04/27 on IV antibiotics vanc, flagyl, cefepime (3) Diabetes: Code(s): E11.9 - Type 2 diabetes mellitus without complications Status: Chronic Assessment and Plan: will stop home glipizide, trulicity and insulin 16 units semglee, ss with meals, metformin Accuckeck ac/hs will start on ss, hypoglycemia protocol, add 11 units of lantus and monitor-adjust as needed hga1c ordered (4) Dyslipidemia: Code(s): E78.5 - Hyperlipidemia, unspecified Status: Chronic Assessment and Plan: continue home statin (5) Hypertension: Code(s): I10 - Essential (primary) hypertension Status: Chronic Assessment and Plan: home hctz, losartan will review bp and resume home meds once the list is completed and updated (6) Congestive heart failure: Code(s): I50.9 - Heart failure, unspecified Status: Chronic Assessment and Plan: home regimen: jardiance, hctz, losartan (7) Overactive bladder: Code(s): N32.81 - Overactive bladder Status: Acute Assessment and Plan: continue home myrbetriq Plan pt is full code home medications will be reviewed and restarted once home med list is completed DVT prophyl. will add SCDs for now as might be going to surgery. Once surgery does eval- will start on lovenox prophylaxis Time Spent With Patient Time with patient: Greater than 35 minutes Subjective Date/time seen: 04/28/24 08:36 Interval history: 79 y.o with pmh/o chf, anemia, stroke, diabetes admitted form emergency department for abscess is present in areas of pressure ulcers on the bottom for about few days. She reports she had multiple abscesses on her buttocks that had been draining. Areas are painful to touch IN ED: she is afebrile, vitals are stable. CBC 21.7. Mild hypokalemia. Potassium was replaced in ed. blood cultures and wound culture obtained. Patient started on IV antibiotics. General surgery consulted. pt is seen and examined. She is somewhat confused gen surgery consulted: 2 abscesses on the buttock region. One was in the right sacral buttock region and the other was in the right superior gluteal buttock region. Both appeared fluctuant with purulence drainage. I/d 04/[address] Foster. on IV flagyl, vanc., cefepime. Pt is doing well. still somewhat confused. Review of Systems Review of Systems: she is somewhat confused, pleasant, and cooperative Exam Narrative: states trying to have BM currently Const: General: comfortable Objective Data Vital Signs Vital Signs: Vital Signs - 24 hr 04/27/24 13:38 04/27/24 14:38 04/27/24 15:55 Temperature 98.4 F 98.4 F 98.1 F Pulse Rate 84 84 79 Respiratory Rate 16 18 14 Blood Pressure 101/43 L 124/45 L 122/56 L Pulse Oximetry 100 97 100 Oxygen Delivery Room Air Simple Face Mask Oxygen Flow Rate 8 04/27/24 16:10 04/27/24 16:25 04/27/24 16:40 Temperature 98.2 F Pulse Rate 87 86 83 Respiratory Rate 19 21 H 20 Blood Pressure 114/51 L 107/70 111/49 L Pulse Oximetry 96 94 95 Oxygen Delivery Room Air Room Air Room Air Oxygen Flow Rate 04/27/24 16:55 04/27/24 17:24 04/27/24 17:47 Temperature 97.8 F 97.7 F Pulse Rate 88 86 86 Respiratory Rate 22 H 16 18 Blood Pressure 116/49 L 104/48 L 125/71 Pulse Oximetry 95 96 100 Oxygen Delivery Room Air Oxygen Flow Rate 04/27/24 18:49 04/27/24 22:32 04/28/24 00:45 Temperature 97.4 F L 98.2 F 98.4 F Pulse Rate 92 94 90 Respiratory Rate 18 20 20 Blood Pressure 110/57 L 117/78 111/49 L Pulse Oximetry 99 98 99 Oxygen Delivery Oxygen Flow Rate 04/28/24 05:35 Temperature 97.5 F L Pulse Rate 74 Respiratory Rate 18 Blood Pressure 109/50 L Pulse Oximetry 97 Oxygen Delivery Oxygen Flow Rate Intake/Output Intake/Output: Intake & Output 04/25/24 04/26/24 04/27/24 04/28/24 23:59 23:59 23:59 23:59 Intake Total 980 450 Output Total 750 Balance 230 450 Meds/Results Medications: Active Medications Generic Name Dose Route Start Last Admin Trade Name Freq PRN Reason Stop Dose Admin Acetaminophen 500 mg 04/27/24 16:59 Acetaminophen 500 Mg Tablet PO Q6H PRN Pain Rated 1-3 Hydrocodone Bitart/Acetaminophen 1 tab 04/27/24 16:59 04/27/24 20:58 Hydrocodone/Acetaminophen (*Crx) 5-325 Mg Tablet PO 1 tab Q4H PRN Administration Pain Rated 4-6 Hydrocodone Bitart/Acetaminophen 1 tab 04/27/24 16:59 Hydrocodone/Acetaminophen (*Crx) 7.5-325 Mg Tablet PO Q4H PRN Pain Rated 7-10 Dextrose 12.5 gm 04/27/24 08:58 Dextrose 50% 25 Gm/50 Ml Syringe IV PUSH PRN PRN Hypoglycemia Protocol Enoxaparin Sodium 40 mg 04/28/24 09:00 Enoxaparin 40 Mg/0.4 Ml Syringe SUB-Q DAILY [facility] Glucagon 1 mg 04/27/24 08:58 Glucagon For Inj 1 Mg Vial IM PRN PRN Hypoglycemia Protocol Glucose 15 gm 04/27/24 08:58 Glucose Oral Gel 15 Gm Of Glucse In 37.5 Gm Tube PO PRN PRN Hypoglycemia Protocol Metronidazole 500 mg in 100 mls @ 100 mls/hr 04/27/24 14:00 04/28/24 05:10 Flagyl 500 Mg/Iso Soln 100 Ml IVPB 100 mls/hr Q8HR [facility] Administration Cefepime HCl 1 gm in 50 mls @ 100 mls/hr 04/27/24 15:00 04/28/24 06:28 Maxipime 1 Gm/Ns 50 Ml IVPB Infused Q12H [facility] Infusion Dextrose 1,000 mls @ 100 mls/hr 04/27/24 08:58 Dextrose 5% 1,000 Ml IVPB PRN PRN Hypoglycemia Protocol Vancomycin HCl 1,250 mg in 250 mls @ 166.667 mls/hr 04/29/24 00:00 Vancomycin 1,250 Mg/Ns 250 Ml IVPB Q18H [facility] Insulin Aspart 2 - 5 units 04/27/24 12:00 04/28/24 08:26 Insulin Aspart (*Bkc) 100 Units/Ml SUB-Q Not Given TIDWM [facility] Protocol Insulin Glargine 11 units 04/27/24 21:00 04/27/24 20:59 Insulin Glargine (*Bkc) 100 Units/Ml 0.15 units/kg (11 units) 11 units SUB-Q Administration HS [facility] Morphine Sulfate 2 mg 04/27/24 16:59 Morphine Sulfate (*Crx) 2 Mg/Ml Inj IV PUSH Q2H PRN Breakthrough Pain Rated 4-6 or NPO Morphine Sulfate 4 mg 04/27/24 16:59 Morphine Sulfate (*Crx) 4 Mg/Ml Inj IV PUSH Q2H PRN Breakthrough Pain Rated 7-10 or NPO Naloxone HCl 0.1 mg 04/27/24 16:59 Naloxone Hcl 0.4 Mg/Ml Vial IV PUSH Q2M PRN Opiate Reversal Ondansetron HCl 4 mg 04/27/24 16:59 Ondansetron Inj 4 Mg/2 Ml Vial IV PUSH Q4H PRN Nausea And Vomiting Polyethylene Glycol 17 gm 04/28/24 09:00 Polyethylene Glycol 3350 17 Gm Powd.Pack PO QAM [facility] Saccharomyces Boulardii 250 mg 04/28/24 09:00 Saccharomyces Boulardii 250 Mg Capsule PO TID [facility] Radiology Results: ITS Impressions Abdomen/Pelvis CT 04/27/24 06:34 IMPRESSION: 1. Stool distends the rectum. 2. Partially visualized fat stranding in the right buttocks, consistent with cellulitis. No abscess. Labs Labs: Laboratory Results - last 24 hr 04/26/24 04/27/24 04/27/24 23:48 10:42 11:39 WBC 17.8 H RBC 3.86 L Hgb 11.1 L Hct 34.2 L MCV 88.6 MCH 28.8 MCHC 32.5 RDW 13.7 Plt Count 505 H MPV 8.0 Sodium 133 L Potassium 3.9 Chloride 99 Carbon Dioxide 30 Anion Gap 4 BUN 11 Creatinine 0.60 L Estim Creat Clear Calc 63 Estimated GFR > 60 Glucose 127 H POC Capillary Glucose 132 H Hemoglobin A1c 7.5 H Calcium 8.8 Magnesium 2.2 04/27/24 04/27/24 04/28/24 14:24 20:09 05:50 WBC 14.6 H RBC 3.49 L Hgb 10.0 L Hct 31.1 L MCV 89.1 MCH 28.7 MCHC 32.2 RDW 13.8 Plt Count 497 H MPV 8.4 Sodium 133 L Potassium 3.2 L Chloride 103 Carbon Dioxide 27 Anion Gap 3 L BUN 10 Creatinine 0.60 L Estim Creat Clear Calc 63 Estimated GFR > 60 Glucose 94 POC Capillary Glucose 119 H 162 H Hemoglobin A1c Calcium 8.4 Magnesium 04/28/ 07:38 WBC RBC Hgb Hct MCV MCH MCHC RDW Plt Count MPV Sodium Potassium Chloride Carbon Dioxide Anion Gap BUN Creatinine Estim Creat Clear Calc Estimated GFR Glucose POC Capillary Glucose 125 H Hemoglobin A1c Calcium Magnesium Quality VTE Prophylaxis VTE prophylaxis: mechanical ordered
[2024-04-28] MEDS: MORPHINE SULFATE (*CRX) 4 MG/ML INJ IV PUSH (09:12)
[2024-04-28] MEDS: ENOXAPARIN 40 MG/0.4 ML SYRINGE SUB-Q (09:12)
[2024-04-28] MEDS: polyethylene glycoL 3350 17 GM POWD.PACK PO (09:13)
[2024-04-28] MEDS: SACCHAROMYCES BOULARDII 250 MG CAPSULE PO ×3 (09:13→16:47)
[2024-04-28 11:28] LABS: Glucose Point of Care 240 mg/dl (65-105)
[2024-04-28] MEDS: INSULIN ASPART (*BKC) 100 UNITS/ML SUB-Q (11:50)
--- NOTE | 2024-04-28 13:41 | PC.NURSE ---
I attempted to administer the soap suds enema; however, pt adamantly refused and began crying, shaking, and repeatedly stating No! No! No! I don't want it! No! No! No! I tried to calm pt but she remained resolute.
[2024-04-28] MEDS: MINERAL OIL 30 ML UDC PO (14:22)
[2024-04-28 16:28] LABS: Glucose Point of Care 179 mg/dl (65-105)
[2024-04-28 19:51] LABS: Glucose Point of Care 271 mg/dl (65-105)
[2024-04-28] MEDS: INSULIN GLARGINE (*BKC) 100 UNITS/ML 11 UNITS SUB-Q (19:54)
[2024-04-29] MEDS: CEFEPIME 1 GM/NS 50 ML 1 GM/50 ML BAG IVPB (02:08)
[2024-04-29 04:00] VITALS: BP 136/56; PULSE 71; RESP 13; TEMP 36.2; O2SAT 97
[2024-04-29] MEDS: metroNIDAZOLE 500 MG/ISO 100ML 500 MG/100 ML BAG 100 MG IVPB ×2 (05:19→12:30)
[2024-04-29 06:30] LABS: Hematocrit 32.2 % (37.0-47.0); Hemoglobin 10.5 g/dL (12.0-15.0); Mean Corpuscular HGB Conc 32.6 g/dl (32-36); Mean Corpuscular Hemoglobin 28.8 pg (26-34); Mean Corpuscular Volume 88.2 fl (80-100); Mean Platelet Volume 8.1 fl (7.4-10.4); Platelet Count Result 510 k/mm3 (150-375); Red Blood Count 3.65 M/mm3 (4.2-5.4); Red Cell Distribution Width 13.6 % (11.5-14.5); White Blood Count 10.8 K/mm3 (4.5-10.0)
[2024-04-29 06:45] LABS: Estimated CRCL calculation 74 ml/min; Estimated Glomerular Filt Rate > 60
[2024-04-29 07:30] LABS: Glucose Point of Care 137 mg/dl (65-105)
[2024-04-29 08:00] VITALS: BP 121/68; PULSE 83; RESP 15; TEMP 36.6; O2SAT 98
--- NOTE | 2024-04-29 08:27 | PM.IMPN ---
Progress Note: A&P Assessment and Plan (1) Sepsis: Code(s): A41.9 - Sepsis, unspecified organism Status: Acute Assessment and Plan: Meets SIRS criteria: leukocytosis, febrile, tachycardia - lactic acid: 1.5 - suspected source: abscesses - wound culture obtained on 04/27: MRSA with resistance to gentamicin and oxacillin - blood culture obtained on 04/27: NGTD - antibiotics: Vanc, cefe, flagyl started on 04/27, transitioned to Levaquin 04/29 per susceptibilities - Urine culture negative (2) Abscess: Code(s): L02.91 - Cutaneous abscess, unspecified Status: Deleted Assessment and Plan: - wound culture obtained on 04/27: MRSA with resistance to gentamicin and oxacillin - blood culture obtained on 04/27: NGTD - CT abdomen/pelvis: 1. Stool distends the rectum. 2. Partially visualized fat stranding in the right buttocks, consistent with cellulitis. No abscess. - antibiotics: Vanc, cefe, flagyl started on 04/27, transitioned to Levaquin 04/29 per susceptibilities - surgery consulted s/p I&D of complex buttock abscess x2 on 04/[address] Cristian alcazar to transition to oral antibiotics and continue daily packing changes (3) Fecal impaction in rectum: Code(s): K56.41 - Fecal impaction Status: Acute Assessment and Plan: CT abdomen/pelvis: 1. Stool distends the rectum. 2. Partially visualized fat stranding in the right buttocks, consistent with cellulitis. No abscess. - s/p fleets enema on 04/27 - 2 bowel movements on 04/28 (4) Diabetes: Code(s): E11.9 - Type 2 diabetes mellitus without complications Status: Chronic Assessment and Plan: will stop home glipizide, trulicity and insulin 16 units semglee, ss with meals, metformin Accuckeck ac/hs will start on ss, hypoglycemia protocol, add 11 units of lantus and monitor-adjust as needed hga1c 7.5 (5) Hypertension: Code(s): I10 - Essential (primary) hypertension Status: Chronic Assessment and Plan: Chronic, current home medications include hctz 25 mg daily and losartan 12.5 mg daily - Patients blood pressure has been well controlled despite not being on her home medications. Discussed with patients RN that the home medication reconciliation has not been completed since patients admission. She is to call her facility and get updated list then complete the med recs today. - Monitor (6) Hypokalemia: Code(s): E87.6 - Hypokalemia Status: Acute Assessment and Plan: K was replaced in ed monitor (7) Congestive heart failure: Code(s): I50.9 - Heart failure, unspecified Status: Chronic Assessment and Plan: Chronic, does not appear in acute exacerbation echo 07/2023: LVEF 65-70% with grade I diatolic dysfunction Patients blood pressure has been well controlled despite not being on her home medications, HCTZ and losartan. monitor (8) Overactive bladder: Code(s): N32.81 - Overactive bladder Status: Acute Assessment and Plan: continue home [email or web address] Time Spent With Patient Time with patient: 25 - 35 minutes Subjective Date/time seen: 04/29/24 08:27 Interval history: 79 y.o with pmh of chf, anemia, stroke, hypertension, dyslipidemia, and diabetes presents to the hospital for abscess in areas of pressure ulcers on the bottom for a few days. Patient is pleasant lying comfortably in bed. She has no complaints at this time denying chest pain, shortness of breath, palpitations, nausea/vomiting and abdominal pain. Patient was evalutated by surgery today and okay to transition to oral antibiotics at this time. Patients blood pressure has been well controlled despite not being on her home medications. Discussed with patients RN that the home medication reconciliation has not been completed since patients admission. She is to call her facility and get updated list then complete the med recs today. Review of Systems Review of Systems: All systems reviewed & are unremarkable except as noted in HPI and below Exam Narrative: AF HR 83 RR 15 SpO2 98 BP 121/68 General: female in no acute respiratory distress who is nontoxic appearing, lying semi recumbent in bed. HEENT: Normocephalic. Atraumatic. Extraocular movement intact. Sclera clear and anicteric. No facial asymmetry. Chest: Lungs are clear to auscultation bilaterlly. No wheezes or crackles. CV: Heart was regular rate and rhythm. S1-S2. No murmurs, gallops, or rubs. Abd: Abdomen was soft. Nontender. Nondistended. Positive bowel sounds. No organomegaly or masses. Ext: No clubbing, cyanosis, or edema. 2+ DP pulses bilaterally. Neuro: Patient is alert and oriented x3. Cranial nerves 2-12 are intact. Speech is clear. Psych: Normal mood and affect. Patient is pleasant and cooperative. Skin: Clean dry and intact dressing to the abscess sites. Objective Data Vital Signs Vital Signs: Vital Signs - 24 hr 04/28/24 11:15 04/28/24 16:00 04/28/24 20:00 Temperature 97.7 F 97.8 F Pulse Rate 77 78 Respiratory Rate 18 18 Blood Pressure 112/45 L 116/52 L Pulse Oximetry 94 96 Oxygen Delivery Room Air 04/28/24 20:00 04/28/24 23:22 04/29/24 04:00 Temperature 97.9 F 97.5 F L 97.2 F L Pulse Rate 76 76 71 Respiratory Rate 14 14 13 Blood Pressure 121/52 L 130/59 L 136/56 L Pulse Oximetry 97 95 97 Oxygen Delivery Intake/Output Intake/Output: Intake & Output 04/26/24 04/27/24 04/28/24 04/29/24 23:59 23:59 23:59 23:59 Intake Total 980 2500 200 Output Total 750 1400 Balance 230 2500 -1200 Meds/Results Medications: Active Medications Generic Name Dose Route Start Last Admin Trade Name Freq PRN Reason Stop Dose Admin Acetaminophen 500 mg 04/27/24 16:59 Acetaminophen 500 Mg Tablet PO Q6H PRN Pain Rated 1-3 Hydrocodone Bitart/Acetaminophen 1 tab 04/27/24 16:59 04/27/24 20:58 Hydrocodone/Acetaminophen (*Crx) 5-325 Mg Tablet PO 1 tab Q4H PRN Administration Pain Rated 4-6 Hydrocodone Bitart/Acetaminophen 1 tab 04/27/24 16:59 Hydrocodone/Acetaminophen (*Crx) 7.5-325 Mg Tablet PO Q4H PRN Pain Rated 7-10 Dextrose 12.5 gm 04/27/24 08:58 Dextrose 50% 25 Gm/50 Ml Syringe IV PUSH PRN PRN Hypoglycemia Protocol Enoxaparin Sodium 40 mg 04/28/24 09:00 04/28/24 09:12 Enoxaparin 40 Mg/0.4 Ml Syringe SUB-Q 40 mg DAILY [facility] Administration Glucagon 1 mg 04/27/24 08:58 Glucagon For Inj 1 Mg Vial IM PRN PRN Hypoglycemia Protocol Glucose 15 gm 04/27/24 08:58 Glucose Oral Gel 15 Gm Of Glucse In 37.5 Gm Tube PO PRN PRN Hypoglycemia Protocol Metronidazole 500 mg in 100 mls @ 100 mls/hr 04/27/24 14:00 04/29/24 05:19 Flagyl 500 Mg/Iso Soln 100 Ml IVPB 100 mls/hr Q8HR [facility] Administration Cefepime HCl 1 gm in 50 mls @ 100 mls/hr 04/27/24 15:00 04/29/24 02:08 Maxipime 1 Gm/Ns 50 Ml IVPB 100 mls/hr Q12H [facility] Administration Dextrose 1,000 mls @ 100 mls/hr 04/27/24 08:58 Dextrose 5% 1,000 Ml IVPB PRN PRN Hypoglycemia Protocol Vancomycin HCl 1,250 mg in 250 mls @ 166.667 mls/hr 04/29/24 00:00 04/28/24 23:35 Vancomycin 1,250 Mg/Ns 250 Ml IVPB 166.67 mls/hr Q18H [facility] Administration Insulin Aspart 2 - 5 units 04/27/24 12:00 04/29/24 08:00 Insulin Aspart (*Bkc) 100 Units/Ml SUB-Q Not Given TIDWM [facility] Protocol Insulin Glargine 11 units 04/27/24 21:00 04/28/24 19:54 Insulin Glargine (*Bkc) 100 Units/Ml 0.15 units/kg (11 units) 11 units SUB-Q Administration [facility] Morphine Sulfate 2 mg 04/27/24 16:59 Morphine Sulfate (*Crx) 2 Mg/Ml Inj IV PUSH Q2H PRN Breakthrough Pain Rated 4-6 or NPO Morphine Sulfate 4 mg 04/27/24 16:59 04/28/24 09:12 Morphine Sulfate (*Crx) 4 Mg/Ml Inj IV PUSH 4 mg Q2H PRN Administration Breakthrough Pain Rated 7-10 or NPO Naloxone HCl 0.1 mg 04/27/24 16:59 Naloxone Hcl 0.4 Mg/Ml Vial IV PUSH Q2M PRN Opiate Reversal Ondansetron HCl 4 mg 04/27/24 16:59 Ondansetron Inj 4 Mg/2 Ml Vial IV PUSH Q4H PRN Nausea And Vomiting Polyethylene Glycol 17 gm 04/28/24 09:00 04/28/24 09:13 Polyethylene Glycol 3350 17 Gm Powd.Pack PO 17 gm QAM [facility]INDER Administration Saccharomyces Boulardii 250 mg 04/28/24 09:00 04/28/24 16:47 Saccharomyces Boulardii 250 Mg Capsule PO 250 mg TID [facility] Administration Radiology Results: ITS Impressions Abdomen/Pelvis CT 04/27/24 06:34 IMPRESSION: 1. Stool distends the rectum. 2. Partially visualized fat stranding in the right buttocks, consistent with cellulitis. No abscess. Labs Labs: Laboratory Results - last 24 hr 04/28/24 04/28/24 04/28/24 11:25 16:25 19:24 WBC RBC Hgb Hct MCV MCH MCHC RDW Plt Count MPV Creatinine Estim Creat Clear Calc Estimated GFR POC Capillary Glucose 240 H 179 H 271 H 04/29/24 04/29/24 06:20 07:15 WBC 10.8 H RBC 3.65 L Hgb 10.5 L Hct 32.2 L MCV 88.2 MCH 28.8 MCHC 32.6 RDW 13.6 Plt Count 510 H MPV 8.1 Creatinine 0.50 L Estim Creat Clear Calc 74 Estimated GFR > 60 POC Capillary Glucose 137 H Quality VTE Prophylaxis VTE prophylaxis: mechanical ordered
[2024-04-29] MEDS: HYDROcodone/acetaminophen (*CRX) 7.5-325 MG TABLET 1 TAB PO (09:10)
[2024-04-29] MEDS: polyethylene glycoL 3350 17 GM POWD.PACK PO (09:10)
[2024-04-29] MEDS: SACCHAROMYCES BOULARDII 250 MG CAPSULE PO ×3 (09:11→16:38)
[2024-04-29] MEDS: ENOXAPARIN 40 MG/0.4 ML SYRINGE SUB-Q (09:12)
[2024-04-29 11:44] LABS: Glucose Point of Care 259 mg/dl (65-105)
[2024-04-29 12:00] VITALS: BP 113/64; PULSE 86; RESP 15; TEMP 36.6; O2SAT 96
[2024-04-29] MEDS: INSULIN ASPART (*BKC) 100 UNITS/ML SUB-Q (12:29)
--- NOTE | 2024-04-29 12:34 | P.PNGS_ITS ---
Progress Note: A&P Assessment and Plan (1) Abscess of buttock: Code(s): L02.31 - Cutaneous abscess of buttock Status: Acute Assessment and Plan: * Daily packing changes. OK to transition to oral antibiotics. * Surgically stable for discharge with daily wound care. * Follow up in office in 2 weeks. (2) Sepsis: Code(s): A41.9 - Sepsis, unspecified organism Status: Acute (3) Congestive heart failure: Code(s): I50.9 - Heart failure, unspecified Status: Chronic (4) Diabetes: Code(s): E11.9 - Type 2 diabetes mellitus without complications Status: Chronic (5) Fecal impaction in rectum: Code(s): K56.41 - Fecal impaction Status: Acute Subjective Subjective Date/Time Seen: 04/29/24 12:34 Interval history: No new issues. No significant pain. Exam Skin: Other: Buttock abscesses continue to improve. Minimal erythema. Objective Data Vital Signs Vital Signs: Vital Signs - 24 hr 04/28/24 16:00 04/28/24 20:00 04/28/24 20:00 Temperature 97.8 F 97.9 F Pulse Rate 78 76 Respiratory Rate 18 14 Blood Pressure 116/52 L 121/52 L Pulse Oximetry 96 97 Oxygen Delivery Room Air 04/28/24 23:22 04/29/24 04:00 04/29/24 08:00 Temperature 97.5 F L 97.2 F L 97.8 F Pulse Rate 76 71 83 Respiratory Rate 14 13 15 Blood Pressure 130/59 L 136/56 L 121/68 Pulse Oximetry 95 97 98 Oxygen Delivery 04/29/24 08:00 Temperature Pulse Rate Respiratory Rate Blood Pressure Pulse Oximetry Oxygen Delivery Room Air Intake/Output Intake/Output: Intake & Output 04/26/24 04/27/24 04/28/24 04/29/24 23:59 23:59 23:59 23:59 Intake Total 980 2500 900 Output Total 750 1400 Balance 230 2500 -500 Meds/Results Medications: Active Medications Generic Name Dose Route Start Last Admin Trade Name Freq PRN Reason Stop Dose Admin Acetaminophen 500 mg 04/27/24 16:59 Acetaminophen 500 Mg Tablet PO Q6H PRN Pain Rated 1-3 Hydrocodone Bitart/Acetaminophen 1 tab 04/27/24 16:59 04/27/24 20:58 Hydrocodone/Acetaminophen (*Crx) 5-325 Mg Tablet PO 1 tab Q4H PRN Administration Pain Rated 4-6 Hydrocodone Bitart/Acetaminophen 1 tab 04/27/24 16:59 04/29/24 09:10 Hydrocodone/Acetaminophen (*Crx) 7.5-325 Mg Tablet PO 1 tab Q4H PRN Administration Pain Rated 7-10 Dextrose 12.5 gm 04/27/24 08:58 Dextrose 50% 25 Gm/50 Ml Syringe IV PUSH PRN PRN Hypoglycemia Protocol Enoxaparin Sodium 40 mg 04/28/24 09:00 04/29/24 09:12 Enoxaparin 40 Mg/0.4 Ml Syringe SUB-Q 40 mg DAILY [facility]IND[facility] Administration Glucagon 1 mg 04/27/24 08:58 Glucagon For Inj 1 Mg Vial IM PRN PRN Hypoglycemia Protocol Glucose 15 gm 04/27/24 08:58 Glucose Oral Gel 15 Gm Of Glucse In 37.5 Gm Tube PO PRN PRN Hypoglycemia Protocol Metronidazole 500 mg in 100 mls @ 100 mls/hr 04/27/24 14:00 04/29/24 12:30 Flagyl 500 Mg/Iso Soln 100 Ml IVPB 100 mls/hr Q8HR [facility] Administration Cefepime HCl 1 gm in 50 mls @ 100 mls/hr 04/27/24 15:00 04/29/24 02:08 Maxipime 1 Gm/Ns 50 Ml IVPB 100 mls/hr Q12H [facility] Administration Dextrose 1,000 mls @ 100 mls/hr 04/27/24 08:58 Dextrose 5% 1,000 Ml IVPB PRN PRN Hypoglycemia Protocol Vancomycin HCl 1,250 mg in 250 mls @ 166.667 mls/hr 04/29/24 00:00 04/28/24 23:35 Vancomycin 1,250 Mg/Ns 250 Ml IVPB 166.67 mls/hr Q18H [facility] Administration Insulin Aspart 2 - 5 units 04/27/24 12:00 04/29/24 12:29 Insulin Aspart (*Bkc) 100 Units/Ml SUB-Q 3 units TIDWM [facility] Administration Protocol Insulin Glargine 11 units 04/27/24 21:00 04/28/24 19:54 Insulin Glargine (*Bkc) 100 Units/Ml 0.15 units/kg (11 units) 11 units SUB-Q Administration HS [facility] Morphine Sulfate 2 mg 04/27/24 16:59 Morphine Sulfate (*Crx) 2 Mg/Ml Inj IV PUSH Q2H PRN Breakthrough Pain Rated 4-6 or NPO Morphine Sulfate 4 mg 04/27/24 16:59 04/28/24 09:12 Morphine Sulfate (*Crx) 4 Mg/Ml Inj IV PUSH 4 mg Q2H PRN Administration Breakthrough Pain Rated 7-10 or NPO Naloxone HCl 0.1 mg 04/27/24 16:59 Naloxone Hcl 0.4 Mg/Ml Vial IV PUSH Q2M PRN Opiate Reversal Ondansetron HCl 4 mg 04/27/24 16:59 Ondansetron Inj 4 Mg/2 Ml Vial IV PUSH Q4H PRN Nausea And Vomiting Polyethylene Glycol 17 gm 04/28/24 09:00 04/29/24 09:10 Polyethylene Glycol 3350 17 Gm Powd.Pack PO 17 gm QAM [facility] Administration Saccharomyces Boulardii 250 mg 04/28/24 09:00 04/29/24 12:30 Saccharomyces Boulardii 250 Mg Capsule PO 250 mg TID [facility]IND[facility] Administration Radiology Results: ITS Impressions Abdomen/Pelvis CT 04/27/24 06:34 IMPRESSION: 1. Stool distends the rectum. 2. Partially visualized fat stranding in the right buttocks, consistent with cellulitis. No abscess. Labs Labs: Laboratory Results - last 24 hr 04/28/24 04/28/24 04/29/24 16:25 19:24 06:20 WBC 10.8 H RBC 3.65 L Hgb 10.5 L Hct 32.2 L MCV 88.2 MCH 28.8 MCHC 32.6 RDW 13.6 Plt Count 510 H MPV 8.1 Creatinine 0.50 L Estim Creat Clear Calc 74 Estimated GFR > 60 POC Capillary Glucose 179 H 271 H 04/29/24 04/29/24 07:15 11:42 WBC RBC Hgb Hct MCV MCH MCHC RDW Plt Count MPV Creatinine Estim Creat Clear Calc Estimated GFR POC Capillary Glucose 137 H 259 H
[2024-04-29 16:29] LABS: Glucose Point of Care 182 mg/dl (65-105)
[2024-04-29] MEDS: levoFLOXacin 750 MG TABLET PO (16:38)
[2024-04-29 20:40] VITALS: BP 106/71; PULSE 76; RESP 20; TEMP 36.2; O2SAT 97
[2024-04-29 21:25] LABS: Glucose Point of Care 202 mg/dl (65-105)
[2024-04-29] MEDS: GABAPENTIN 100 MG CAPSULE PO (21:36)
[2024-04-29] MEDS: SIMVASTATIN 5 MG TABLET PO (21:36)
[2024-04-29] MEDS: INSULIN GLARGINE (*BKC) 100 UNITS/ML 11 UNITS SUB-Q (21:36)
[2024-04-30 00:40] VITALS: BP 145/63; PULSE 81; RESP 20; TEMP 36; O2SAT 99
[2024-04-30 04:30] VITALS: BP 125/57; PULSE 77; RESP 20; TEMP 36; O2SAT 99
[2024-04-30] MEDS: GABAPENTIN 100 MG CAPSULE PO ×3 (06:09→21:33)
[2024-04-30 07:12] LABS: Basophils Absolute Auto 0.1 K/mm3 (0.0-0.1); Basophils Percent Auto 0.5 % (0.2-1.2); Eosinophils Absolute Auto 0.8 K/mm3 (0-0.3); Eosinophils Percent Auto 6.9 % (0-4.4); Hematocrit 32.7 % (37.0-47.0); Hemoglobin 10.5 g/dL (12.0-15.0); Immature Granulocyte Absolute 0.23 K/mm3 (0.00-0.031); Immature Granulocyte Percent A 2.1 % (0-0.5); Lymphocytes Absolute Auto 3.38 K/mm3 (0.9-3.2); Lymphocytes Percent Auto 30.8 % (18.3-44.2); Mean Corpuscular HGB Conc 32.1 g/dl (32-36); Mean Corpuscular Hemoglobin 28.4 pg (26-34); Mean Corpuscular Volume 88.4 fl (80-100); Monocytes Absolute Auto 0.9 K/mm3 (0.1-0.6); Monocytes Percent Auto 7.7 % (2.6-8.5); Neutrophils Absolute Auto 5.7 K/mm3 (1.3-6.7); Platelet Count Result 577 k/mm3 (150-375); Red Cell Distribution Width 13.8 % (11.5-14.5)
[2024-04-30 07:29] LABS: Alanine Aminotransferase 13 U/L (6-35); Albumin Level 2.8 g/dL (3.5-5.1); Alkaline Phosphatase 80 U/L (38-126); Anion Gap 1 mmol/L (4-12); Aspartate Amino Transferase 26 U/L (14-36); Bilirubin,Total 0.3 mg/dL (0.2-1.3); Blood Urea Nitrogen 6 mg/dL (7-17); Calcium 8.6 mg/dL (8.4-10.2); Carbon Dioxide 29 mmol/L (22-30); Chloride 106 mmol/L (98-107); Estimated CRCL calculation 74 ml/min; Estimated Glomerular Filt Rate > 60; Glucose 159 mg/dL (65-110); Potassium 3.6 mmol/L (3.4-5.0); Sodium 136 mmol/L (137-145)
[2024-04-30 08:00] VITALS: BP 119/42; PULSE 73; RESP 16; TEMP 36.3; O2SAT 97
[2024-04-30 08:10] LABS: Glucose Point of Care 163 mg/dl (65-105)
[2024-04-30] MEDS: FLUTICASONE/SALMETEROL 115-21 MCG INHALER 1 PUFF 2 PUFF INHALATION (09:29)
[2024-04-30] MEDS: FERROUS SULFATE 325 MG TABLET DR BY MOUTH (09:47)
[2024-04-30] MEDS: SACCHAROMYCES BOULARDII 250 MG CAPSULE PO ×3 (09:47→17:02)
[2024-04-30] MEDS: MAGNESIUM OXIDE 200 MG TABLET PO (09:48)
[2024-04-30] MEDS: oxyBUTYnin CHLORIDE 5 MG TABLET PO (09:48)
[2024-04-30] MEDS: polyethylene glycoL 3350 17 GM POWD.PACK PO (09:48)
[2024-04-30] MEDS: ENOXAPARIN 40 MG/0.4 ML SYRINGE SUB-Q (09:51)
--- NOTE | 2024-04-30 10:31 | PCNFU ---
Nutrition Follow-Up Complete: Increased protein energy needs related to wound healing as evidenced by wounds to buttocks Goal:Adequate intake when diet is advanced Pt meeting goal. Continue with same goal. Pt current nutrition is Diabetic. Nutrition recommendation: continue with current plan of care Last recorded weight is 76.4 kg. Bowel Motility: +BM 04/29 Labs Reviewed: Hgb:10.5, HCT:32.7, alb:2.8, NA:136, BUN:6, Cr:0.5, Glu:159 Meds Noted: insulin Skin: wound to buttocks, not noted as pressure Additional Notes: Pt on a diabetic diet, intake 50-100% of meals, nursing reports pt states she is very hungry and eating all of her trays. Encourage good intake to continue. Agree with orders. Monitoring diet orders, wound staging, labs, weights, plan of care Follow up in 7 days
[2024-04-30 11:46] LABS: Glucose Point of Care 282 mg/dl (65-105)
[2024-04-30 12:00] VITALS: BP 113/55; PULSE 91; RESP 18; TEMP 37.1; O2SAT 98
--- NOTE | 2024-04-30 14:45 | P.PNIM_ITS ---
Progress Note: A&P Assessment and Plan (1) Sepsis: Code(s): A41.9 - Sepsis, unspecified organism Status: Acute Assessment and Plan: Meets SIRS criteria: leukocytosis, febrile, tachycardia - lactic acid: 1.5 - suspected source: abscesses - wound culture obtained on 04/27: MRSA with resistance to gentamicin and oxacillin - blood culture obtained on 04/27: NGTD - urine culture: Ecoli and klebsiella with resistance to fluoroquinolones and bactrim - antibiotics: Vanc, cefe, flagyl started on 04/27, transitioned to Levaquin 04/29, discontinued on 04/30. Transitioned to doxy and cefepime based on susceptibilities. (2) Abscess: Code(s): L02.91 - Cutaneous abscess, unspecified Status: Deleted Assessment and Plan: - wound culture obtained on 04/27: MRSA with resistance to gentamicin and oxacillin - blood culture obtained on 04/27: NGTD - CT abdomen/pelvis: 1. Stool distends the rectum. 2. Partially visualized fat stranding in the right buttocks, consistent with cellulitis. No abscess. - antibiotics: Vanc, cefe, flagyl started on 04/27, transitioned to Levaquin 04/29, discontinued on 04/30. Transitioned to doxy and cefepime based on susceptibilities. - surgery consulted s/p I&D of complex buttock abscess x2 on 04/[address] Cristian alcazar to transition to oral antibiotics and continue daily packing changes (3) Fecal impaction in rectum: Code(s): K56.41 - Fecal impaction Status: Acute Assessment and Plan: CT abdomen/pelvis: 1. Stool distends the rectum. 2. Partially visualized fat stranding in the right buttocks, consistent with cellulitis. No abscess. - s/p fleets enema on 04/27 - 2 bowel movements on 04/28 (4) Urinary tract infection: Code(s): N39.0 - Urinary tract infection, site not specified Status: Acute Assessment and Plan: - UA concerning for infection - UC obtained on 04/27/24: Ecoli with resistance to fluoroquinolones and bactrim, Klebsiella with resistance to unasym, fluoroquinolones, macrobid, and bactrim - no previous micro to be reviewed - antibiotics: Vanc, cefe, flagyl started on 04/27, transitioned to Levaquin 04/29, discontinued on 04/30. Transitioned to doxy and cefepime based on susceptibilities. (5) Diabetes: Code(s): E11.9 - Type 2 diabetes mellitus without complications Status: Chronic Assessment and Plan: will stop home glipizide, trulicity and insulin 16 units semglee, ss with meals, metformin Accuckeck ac/hs will start on ss, hypoglycemia protocol, add 11 units of lantus and monitor- adjust as needed hga1c 7.5 (6) Hypertension: Code(s): I10 - Essential (primary) hypertension Status: Chronic Assessment and Plan: Chronic, current home medications include hctz 25 mg daily and losartan 12.5 mg daily - Patients blood pressure has been well controlled despite not being on her home medications. Discussed with patients RN that the home medication reconciliation has not been completed since patients admission. She is to call her facility and get updated list then complete the med recs today. - Monitor (7) Hypokalemia: Code(s): E87.6 - Hypokalemia Status: Acute Assessment and Plan: K was replaced in ed monitor (8) Congestive heart failure: Code(s): I50.9 - Heart failure, unspecified Status: Chronic Assessment and Plan: Chronic, does not appear in acute exacerbation echo 07/2023: LVEF 65-70% with grade I diatolic dysfunction Patients blood pressure has been well controlled despite not being on her home medications, HCTZ and losartan. monitor (9) Overactive bladder: Code(s): N32.81 - Overactive bladder Status: Acute Assessment and Plan: continue home hieu Time Spent With Patient Time with patient: 25 - 35 minutes Subjective Date/time seen: 04/30/24 14:45 Interval history: 79 y.o with pmh of chf, anemia, stroke, hypertension, dyslipidemia, and diabetes presents to the hospital for abscess in areas of pressure ulcers on the bottom for a few days. Patient is pleasant lying in bed. Plan was to discharge patient today however after further looking at her cultures she will require IV antibiotics at discharge for the UTI and abscess coverage. Patient has no complaints at this time denying chest pain, shortness of breath, nausea/vomiting and abdominal pain. Review of Systems Review of Systems: All systems reviewed & are unremarkable except as noted in HPI and below Exam Narrative: AF HR 91 RR 18 SpO2 98 BP 113/55 General: female in no acute respiratory distress who is nontoxic appearing, lying semi recumbent in bed. HEENT: Normocephalic. Atraumatic. Extraocular movement intact. Sclera clear and anicteric. No facial asymmetry. Chest: Lungs are clear to auscultation bilaterlly. No wheezes or crackles. CV: Heart was regular rate and rhythm. S1-S2. No murmurs, gallops, or rubs. Abd: Abdomen was soft. Nontender. Nondistended. Positive bowel sounds. No organomegaly or masses. Ext: No clubbing, cyanosis, or edema. 2+ DP pulses bilaterally. Neuro: Patient is alert and oriented x3. Cranial nerves 2-12 are intact. Speech is clear. Psych: Normal mood and affect. Patient is pleasant and cooperative. Skin: Abscesses to the mid back and right hip region without noted discharge. Pictures uploaded to patient chart. Objective Data Vital Signs Vital Signs: Vital Signs - 24 hr 04/29/24 20:40 04/30/24 00:40 04/30/24 04:30 Temperature 97.1 F L 96.8 F L 96.8 F L Pulse Rate 76 81 77 Respiratory Rate 20 20 20 Blood Pressure 106/71 145/63 H 125/57 L Pulse Oximetry 97 99 99 Oxygen Delivery 04/30/24 08:00 04/30/24 08:00 04/30/24 12:00 Temperature 97.4 F L 98.8 F Pulse Rate 73 91 Respiratory Rate 16 18 Blood Pressure 119/42 L 113/55 L Pulse Oximetry 97 98 Oxygen Delivery Room Air Intake/Output Intake/Output: Intake & Output 04/27/24 04/28/24 04/29/24 04/30/24 23:59 23:59 23:59 23:59 Intake Total 980 2500 2560 1170 Output Total 750 2300 1650 Balance 230 2500 260 -480 Meds/Results Medications: Active Medications Generic Name Dose Route Start Last Admin Trade Name Freq PRN Reason Stop Dose Admin Acetaminophen 500 mg 04/27/24 16:59 Acetaminophen 500 Mg Tablet PO Q6H PRN Pain Rated 1-3 Hydrocodone Bitart/Acetaminophen 1 tab 04/27/24 16:59 04/27/24 20:58 Hydrocodone/Acetaminophen (*Crx) 5-325 Mg Tablet PO 1 tab Q4H PRN Administration Pain Rated 4-6 Hydrocodone Bitart/Acetaminophen 1 tab 04/27/24 16:59 04/29/24 09:10 Hydrocodone/Acetaminophen (*Crx) 7.5-325 Mg Tablet PO 1 tab Q4H PRN Administration Pain Rated 7-10 Dextrose 12.5 gm 04/27/24 08:58 Dextrose 50% 25 Gm/50 Ml Syringe IV PUSH PRN PRN Hypoglycemia Protocol Doxycycline Hyclate 100 mg 04/30/24 21:00 Doxycycline Hyclate 100 Mg Tablet PO Q12HR [facility] Enoxaparin Sodium 40 mg 04/28/24 09:00 04/30/24 09:51 Enoxaparin 40 Mg/0.4 Ml Syringe SUB-Q 40 mg DAILY [facility] Administration Ferrous Sulfate 325 mg 04/30/24 09:00 04/30/24 09:47 Ferrous Sulfate [address] BY MOUTH 325 mg DAILY [facility] Administration Gabapentin 100 mg 04/29/24 14:00 04/30/24 06:09 Gabapentin 100 Mg Capsule PO 100 mg Q8HR [facility] Administration Glucagon 1 mg 04/27/24 08:58 Glucagon For Inj 1 Mg Vial IM PRN PRN Hypoglycemia Protocol Glucose 15 gm 04/27/24 08:58 Glucose Oral Gel 15 Gm Of Glucse In 37.5 Gm Tube PO PRN PRN Hypoglycemia Protocol Dextrose 1,000 mls @ 100 mls/hr 04/27/24 08:58 Dextrose 5% 1,000 Ml IVPB PRN PRN Hypoglycemia Protocol Cefepime HCl 1 gm in 50 mls @ 100 mls/hr 04/30/24 14:45 Maxipime 1 Gm/Ns 50 Ml IVPB Q8H [facility] Insulin Aspart 2 - 5 units 04/27/24 12:00 04/30/24 09:52 Insulin Aspart (*Bkc) 100 Units/Ml SUB-Q Not Given TIDWM [facility] Protocol Insulin Glargine 11 units 04/27/24 21:00 04/29/24 21:36 Insulin Glargine (*Bkc) 100 Units/Ml 0.15 units/kg (11 units) 11 units SUB-Q Administration HS [facility] Levofloxacin 750 mg 04/29/24 17:00 04/29/24 16:38 Levofloxacin 750 Mg Tablet PO 750 mg DAILY@1700 [facility] Administration Magnesium Oxide 200 mg 04/30/24 09:00 04/30/24 09:48 Magnesium Oxide 200 Mg Tablet PO 200 mg DAILY [facility] Administration Morphine Sulfate 2 mg 04/27/24 16:59 Morphine Sulfate (*Crx) 2 Mg/Ml Inj IV PUSH Q2H PRN Breakthrough Pain Rated 4-6 or NPO Morphine Sulfate 4 mg 04/27/24 16:59 04/28/24 09:12 Morphine Sulfate (*Crx) 4 Mg/Ml Inj IV PUSH 4 mg Q2H PRN Administration Breakthrough Pain Rated 7-10 or NPO Naloxone HCl 0.1 mg 04/27/24 16:59 Naloxone Hcl 0.4 Mg/Ml Vial IV PUSH Q2M PRN Opiate Reversal Ondansetron HCl 4 mg 04/27/24 16:59 Ondansetron Inj 4 Mg/2 Ml Vial IV PUSH Q4H PRN Nausea And Vomiting Oxybutynin Chloride 5 mg 04/30/24 09:00 04/30/24 09:48 Oxybutynin Chloride 5 Mg Tablet PO 5 mg DAILY [facility] Administration Polyethylene Glycol 17 gm 04/28/24 09:00 04/30/24 09:48 Polyethylene Glycol 3350 17 Gm Powd.Pack PO 17 gm QAM [facility] Administration Saccharomyces Boulardii 250 mg 04/28/24 09:00 04/30/24 09:47 Saccharomyces Boulardii 250 Mg Capsule PO 250 mg TID [facility] Administration Fluticasone/Salmeterol 2 puff 04/30/24 09:00 04/30/24 09:29 Fluticasone/Salmeterol 115-21 Mcg Inhaler 1 Puff INHALATION 2 puff DAILY [facility] Administration Simvastatin 5 mg 04/29/24 21:00 04/29/24 21:36 Simvastatin 5 Mg Tablet PO 5 mg HS [facility] Administration Radiology Results: ITS Impressions Abdomen/Pelvis CT 04/27/24 06:34 IMPRESSION: 1. Stool distends the rectum. 2. Partially visualized fat stranding in the right buttocks, consistent with cellulitis. No abscess. Labs Labs: Laboratory Results - last 24 hr 04/29/24 04/29/24 04/30/24 16:23 20:43 07:08 WBC 11.0 H RBC 3.70 L Hgb 10.5 L Hct 32.7 L MCV 88.4 MCH 28.4 MCHC 32.1 RDW 13.8 Plt Count 577 H MPV 8.0 Immature Gran % (Auto) 2.1 H Neut % (Auto) 52.0 Lymph % (Auto) 30.8 [place] % (Auto) 7.7 Eos % (Auto) 6.9 H Baso % (Auto) 0.5 Lymph # (Auto) 3.38 H [place] # (Auto) 0.9 H Eos # (Auto) 0.8 H Baso # (Auto) 0.1 Abs Immat Gran (auto) 0.23 H Absolute Neuts (auto) 5.7 Absolute Nucleated RBC 0.000 Nucleated RBC % 0.0 Sodium 136 L Potassium 3.6 Chloride 106 Carbon Dioxide 29 Anion Gap 1 L BUN 6 L Creatinine 0.50 L Estim Creat Clear Calc 74 Estimated GFR > 60 Glucose 159 H POC Capillary Glucose 182 H 202 H Calcium 8.6 Total Bilirubin 0.3 AST 26 ALT 13 Alkaline Phosphatase 80 Total Protein 6.0 L Albumin 2.8 L 04/30/24 04/30/24 08:06 11:22 WBC RBC Hgb Hct MCV MCH MCHC RDW Plt Count MPV Immature Gran % (Auto) Neut % (Auto) Lymph % (Auto) [place] % (Auto) Eos % (Auto) Baso % (Auto) Lymph # (Auto) [place] # (Auto) Eos # (Auto) Baso # (Auto) Abs Immat Gran (auto) Absolute Neuts (auto) Absolute Nucleated RBC Nucleated RBC % Sodium Potassium Chloride Carbon Dioxide Anion Gap BUN Creatinine Estim Creat Clear Calc Estimated GFR Glucose POC Capillary Glucose 163 H 282 H Calcium Total Bilirubin AST ALT Alkaline Phosphatase Total Protein Albumin Quality VTE Prophylaxis VTE prophylaxis: mechanical ordered
[2024-04-30] MEDS: CEFEPIME 1 GM/NS 50 ML 1 GM/50 ML BAG IVPB ×2 (14:56→21:33)
[2024-04-30] MEDS: INSULIN ASPART (*BKC) 100 UNITS/ML SUB-Q (14:57)
[2024-04-30 16:00] VITALS: BP 116/56; PULSE 93; RESP 16; TEMP 37.1; O2SAT 98
[2024-04-30 16:48] LABS: Glucose Point of Care 189 mg/dl (65-105)
[2024-04-30] MEDS: levoFLOXacin 750 MG TABLET PO (17:02)
[2024-04-30] MEDS: DOXYCYCLINE HYCLATE 100 MG TABLET PO (17:02)
[2024-04-30 21:10] VITALS: BP 129/58; PULSE 85; RESP 16; TEMP 36.4; O2SAT 97
[2024-04-30 21:18] LABS: Glucose Point of Care 235 mg/dl (65-105)
[2024-04-30] MEDS: SIMVASTATIN 5 MG TABLET PO (21:33)
[2024-04-30] MEDS: INSULIN GLARGINE (*BKC) 100 UNITS/ML 11 UNITS SUB-Q (21:39)
[2024-05-01] MEDS: HYDROcodone/acetaminophen (*CRX) 7.5-325 MG TABLET 1 TAB PO (01:09)
[2024-05-01] MEDS: DOXYCYCLINE HYCLATE 100 MG TABLET PO (05:37)
[2024-05-01] MEDS: CEFEPIME 1 GM/NS 50 ML 1 GM/50 ML BAG IVPB (05:38)
[2024-05-01] MEDS: GABAPENTIN 100 MG CAPSULE PO (05:38)
[2024-05-01 05:40] VITALS: BP 119/56; PULSE 72; RESP 18; TEMP 36.1; O2SAT 96
--- NOTE | 2024-05-01 07:36 | PM.IMPN ---
Progress Note: A&P Assessment and Plan (1) Abscess of buttock: Code(s): L02.31 - Cutaneous abscess of buttock Status: Acute (2) Sepsis: Code(s): A41.9 - Sepsis, unspecified organism Status: Acute (3) Fecal impaction in rectum: Code(s): K56.41 - Fecal impaction Status: Acute (4) Urinary tract infection: Code(s): N39.0 - Urinary tract infection, site not specified Status: Acute (5) Hypokalemia: Code(s): E87.6 - Hypokalemia Status: Acute Plan (1) Sepsis: Code(s): A41.9 - Sepsis, unspecified organism Status: Acute Assessment and Plan: Meets SIRS criteria: leukocytosis, febrile, tachycardia - lactic acid: 1.5 - suspected source: abscesses - wound culture obtained on 04/27: MRSA with resistance to gentamicin and oxacillin - blood culture obtained on 04/27: NGTD - urine culture: Ecoli and klebsiella with resistance to fluoroquinolones and bactrim - antibiotics: Vanc, cefe, flagyl started on 04/27, transitioned to Levaquin 04/29, discontinued on 04/30. Transitioned to doxy and cefepime based on susceptibilities. Patient is afebrile, blood pressure stable, Continue doxycycline and cefepime see based on the wound culture and urine culture (2) Abscess: Code(s): L02.91 - Cutaneous abscess, unspecified Status: Deleted Assessment and Plan: - wound culture obtained on 04/27: MRSA with resistance to gentamicin and oxacillin - blood culture obtained on 04/27: NGTD - CT abdomen/pelvis: 1. Stool distends the rectum. 2. Partially visualized fat stranding in the right buttocks, consistent with cellulitis. No abscess. - antibiotics: Vanc, cefe, flagyl started on 04/27, transitioned to Levaquin 04/29, discontinued on 04/30. Transitioned to doxy and cefepime based on susceptibilities. - surgery consulted s/p I&D of complex buttock abscess x2 on 04/[address] Cristian alcazar to transition to oral antibiotics and continue daily packing changes (3) Fecal impaction in rectum: Code(s): K56.41 - Fecal impaction Status: Acute Assessment and Plan: CT abdomen/pelvis: 1. Stool distends the rectum. 2. Partially visualized fat stranding in the right buttocks, consistent with cellulitis. No abscess. - s/p fleets enema on 04/27 - 2 bowel movements on 04/28 (4) Urinary tract infection: Code(s): N39.0 - Urinary tract infection, site not specified Status: Acute Assessment and Plan: - UA concerning for infection - UC obtained on 04/27/24: Ecoli with resistance to fluoroquinolones and bactrim, Klebsiella with resistance to unasym, fluoroquinolones, macrobid, and bactrim - no previous micro to be reviewed - antibiotics: Vanc, cefe, flagyl started on 04/27, transitioned to Levaquin 04/29, discontinued on 04/30. Transitioned to doxy and cefepime based on susceptibilities. (5) Diabetes: Code(s): E11.9 - Type 2 diabetes mellitus without complications Status: Chronic Assessment and Plan: will stop home glipizide, trulicity and insulin 16 units semglee, ss with meals, metformin Accuckeck ac/hs will start on ss, hypoglycemia protocol, add 11 units of lantus and monitor-adjust as needed hga1c 7.5 (6) Hypertension: Code(s): I10 - Essential (primary) hypertension Status: Chronic Assessment and Plan: Chronic, current home medications include hctz 25 mg daily and losartan 12.5 mg daily - Patients blood pressure has been well controlled despite not being on her home medications. Discussed with patients RN that the home medication reconciliation has not been completed since patients admission. She is to call her facility and get updated list then complete the med recs today. - Monitor (7) Hypokalemia: Code(s): E87.6 - Hypokalemia Status: Acute Assessment and Plan: K was replaced in ed monitor (8) Congestive heart failure: Code(s): I50.9 - Heart failure, unspecified Status: Chronic Assessment and Plan: Chronic, does not appear in acute exacerbation echo 07/2023: LVEF 65-70% with grade I diatolic dysfunction Patients blood pressure has been well controlled despite not being on her home medications, HCTZ and losartan. monitor (9) Overactive bladder: Code(s): N32.81 - Overactive bladder Status: Acute Assessment and Plan: continue home iheu Patient will be discharged [facility] today Subjective Date/time seen: 05/01/24 07:36 Interval history: I saw examined the patient today Patient is afebrile blood pressure stable. Patient feels better, denies buttock pain, also denies chest pain, abdomen pain, nausea vomiting diarrhea. Patient denies dysuria. Labs reviewed, Exam Narrative: GENERAL: Pleasant, in no acute distress. Well-nourished. - EYES: EOMI. Anicteric. - HENT: Moist mucous membranes. - LUNGS: Clear to auscultation bilaterally, no wheezing, rhonchi, or rales. - CARDIOVASCULAR: Regular rate and rhythm. No murmur. No JVD. - ABDOMEN: Soft, non-tender and non-distended. No palpable masses. - EXTREMITIES: No edema. Peripheral pulses 2+. Non-tender. - NEUROLOGIC: No focal neurological deficits. CN II-XII grossly intact. - PSYCHIATRIC: Awake, Alert and oriented x 3. Appropriate mood and affect. - LYMPH: No cervical lymphadenopathy. -Skin: Abscesses to the mid back and right hip region without noted discharge. Pictures uploaded to patient chart. Objective Data Vital Signs Vital Signs: Vital Signs - 24 hr 04/30/24 08:00 04/30/24 08:00 04/30/24 12:00 Temperature 97.4 F L 98.8 F Pulse Rate 73 91 Respiratory Rate 16 18 Blood Pressure 119/42 L 113/55 L Pulse Oximetry 97 98 Oxygen Delivery Room Air 04/30/24 16:00 04/30/24 20:00 04/30/24 21:10 Temperature 98.7 F 97.5 F L Pulse Rate 93 85 Respiratory Rate 16 16 Blood Pressure 116/56 L 129/58 L Pulse Oximetry 98 97 Oxygen Delivery Room Air 05/01/24 05:40 Temperature 96.9 F L Pulse Rate 72 Respiratory Rate 18 Blood Pressure 119/56 L Pulse Oximetry 96 Oxygen Delivery Intake/Output Intake/Output: Intake & Output 04/28/24 04/29/24 04/30/24 05/01/24 23:59 23:59 23:59 23:59 Intake Total 2500 2560 2510 700 Output Total 2300 2250 400 Balance 2500 260 260 300 Meds/Results Medications: Active Medications Generic Name Dose Route Start Last Admin Trade Name Freq PRN Reason Stop Dose Admin Acetaminophen 500 mg 04/27/24 16:59 Acetaminophen 500 Mg Tablet PO Q6H PRN Pain Rated 1-3 Hydrocodone Bitart/Acetaminophen 1 tab 04/27/24 16:59 04/27/24 20:58 Hydrocodone/Acetaminophen (*Crx) 5-325 Mg Tablet PO 1 tab Q4H PRN Administration Pain Rated 4-6 Hydrocodone Bitart/Acetaminophen 1 tab 04/27/24 16:59 05/01/24 01:09 Hydrocodone/Acetaminophen (*Crx) 7.5-325 Mg Tablet PO 1 tab Q4H PRN Administration Pain Rated 7-10 Dextrose 12.5 gm 04/27/24 08:58 Dextrose 50% 25 Gm/50 Ml Syringe IV PUSH PRN PRN Hypoglycemia Protocol Doxycycline Hyclate 100 mg 04/30/24 18:00 05/01/24 05:37 Doxycycline Hyclate 100 Mg Tablet PO 100 mg Q12H [facility] Administration Enoxaparin Sodium 40 mg 04/28/24 09:00 04/30/24 09:51 Enoxaparin 40 Mg/0.4 Ml Syringe SUB-Q 40 mg DAILY [facility] Administration Ferrous Sulfate 325 mg 04/30/24 09:00 04/30/24 09:47 Ferrous Sulfate [address] BY MOUTH 325 mg DAILY [facility] Administration Gabapentin 100 mg 04/29/24 14:00 05/01/24 05:38 Gabapentin 100 Mg Capsule PO 100 mg Q8HR [facility] Administration Glucagon 1 mg 04/27/24 08:58 Glucagon For Inj 1 Mg Vial IM PRN PRN Hypoglycemia Protocol Glucose 15 gm 04/27/24 08:58 Glucose Oral Gel 15 Gm Of Glucse In 37.5 Gm Tube PO PRN PRN Hypoglycemia Protocol Dextrose 1,000 mls @ 100 mls/hr 04/27/24 08:58 Dextrose 5% 1,000 Ml IVPB PRN PRN Hypoglycemia Protocol Cefepime HCl 1 gm in 50 mls @ 100 mls/hr 04/30/24 14:45 05/01/24 05:38 Maxipime 1 Gm/Ns 50 Ml IVPB 100 mls/hr Q8HR [facility] Administration Insulin Aspart 2 - 5 units 04/27/24 12:00 04/30/24 17:01 Insulin Aspart (*Bkc) 100 Units/Ml SUB-Q Not Given TIDWM [facility] Protocol Insulin Glargine 11 units 04/27/24 21:00 04/30/24 21:39 Insulin Glargine (*Bkc) 100 Units/Ml 0.15 units/kg (11 units) 11 units SUB-Q Administration HS [facility] Levofloxacin 750 mg 04/29/24 17:00 04/30/24 17:02 Levofloxacin 750 Mg Tablet PO 750 mg DAILY@1700 [facility] Administration Magnesium Oxide 200 mg 04/30/24 09:00 04/30/24 09:48 Magnesium Oxide 200 Mg Tablet PO 200 mg DAILY [facility] Administration Morphine Sulfate 2 mg 04/27/24 16:59 Morphine Sulfate (*Crx) 2 Mg/Ml Inj IV PUSH Q2H PRN Breakthrough Pain Rated 4-6 or NPO Morphine Sulfate 4 mg 04/27/24 16:59 04/28/24 09:12 Morphine Sulfate (*Crx) 4 Mg/Ml Inj IV PUSH 4 mg Q2H PRN Administration Breakthrough Pain Rated 7-10 or NPO Naloxone HCl 0.1 mg 04/27/24 16:59 Naloxone Hcl 0.4 Mg/Ml Vial IV PUSH Q2M PRN Opiate Reversal Ondansetron HCl 4 mg 04/27/24 16:59 Ondansetron Inj 4 Mg/2 Ml Vial IV PUSH Q4H PRN Nausea And Vomiting Oxybutynin Chloride 5 mg 04/30/24 09:00 04/30/24 09:48 Oxybutynin Chloride 5 Mg Tablet PO 5 mg DAILY [facility] Administration Polyethylene Glycol 17 gm 04/28/24 09:00 04/30/24 09:48 Polyethylene Glycol 3350 17 Gm Powd.Pack PO 17 gm QAM [facility] Administration Saccharomyces Boulardii 250 mg 04/28/24 09:00 04/30/24 17:02 Saccharomyces Boulardii 250 Mg Capsule PO 250 mg TID [facility] Administration Fluticasone/Salmeterol 2 puff 04/30/24 09:00 04/30/24 09:29 Fluticasone/Salmeterol 115-21 Mcg Inhaler 1 Puff INHALATION 2 puff DAILY [facility] Administration Simvastatin 5 mg 04/29/24 21:00 04/30/24 21:33 Simvastatin 5 Mg Tablet PO 5 mg HS [facility] Administration Radiology Results: ITS Impressions Abdomen/Pelvis CT 04/27/24 06:34 IMPRESSION: 1. Stool distends the rectum. 2. Partially visualized fat stranding in the right buttocks, consistent with cellulitis. No abscess. Labs Labs: Laboratory Results - last 24 hr 04/30/24 04/30/24 04/30/24 08:06 11:22 16:44 POC Capillary Glucose 163 H 282 H 189 H 04/30/24 21:12 POC Capillary Glucose 235 H
[2024-05-01 07:41] LABS: Glucose Point of Care 182 mg/dl (65-105)
[2024-05-01 08:00] VITALS: BP 120/94; PULSE 76; RESP 18; TEMP 36.2; O2SAT 97
[2024-05-01] MEDS: FLUTICASONE/SALMETEROL 115-21 MCG INHALER 1 PUFF 2 PUFF INHALATION (09:52)
[2024-05-01 09:53] VITALS: PULSE 89; RESP 18
[2024-05-01] MEDS: SACCHAROMYCES BOULARDII 250 MG CAPSULE PO ×2 (10:03→12:53)
[2024-05-01] MEDS: FERROUS SULFATE 325 MG TABLET DR BY MOUTH (10:03)
[2024-05-01] MEDS: oxyBUTYnin CHLORIDE 5 MG TABLET PO (10:03)
[2024-05-01] MEDS: MAGNESIUM OXIDE 200 MG TABLET PO (10:03)
[2024-05-01] MEDS: ENOXAPARIN 40 MG/0.4 ML SYRINGE SUB-Q (10:03)
[2024-05-01] MEDS: polyethylene glycoL 3350 17 GM POWD.PACK PO (10:04)
--- NOTE | 2024-05-01 11:03 | P.DS_ITS ---
DS: Admitting Diagnosis Discharge Date 05/01/24 Admitting Diagnosis Sepsis Sepsis Fecal impaction Diabetes Hypertension Hypokalemia DS: Discharge Diagnosis Discharge Diagnosis (1) Abscess of buttock: Code(s): L02.31 - Cutaneous abscess of buttock Status: Acute (2) Sepsis: Code(s): A41.9 - Sepsis, unspecified organism Status: Acute (3) Fecal impaction in rectum: Code(s): K56.41 - Fecal impaction Status: Acute (4) Urinary tract infection: Code(s): N39.0 - Urinary tract infection, site not specified Status: Acute (5) Hypokalemia: Code(s): E87.6 - Hypokalemia Status: Acute DS: Summary Hospital Course Hospital Course: Per H&P: 79 y.o with pmh/o admitted form emergency department for abscess is present in areas of pressure ulcers on the bottom for about few days. She reports she had multiple abscesses on her buttocks that had been draining. Areas are painful to touch IN ED: she is afebrile, vitals are stable. CBC 21.7. Mild hypokalemia. Potassium was replaced in ed. blood cultures and wound culture obtained. Patient started on IV antibiotics. General surgery consulted. pt is seen and examined. She is somewhat confused The following med issues have been addressed during hospitalization Sepsis: Code(s): A41.9 - Sepsis, unspecified organism Status: Acute Assessment and Plan: Meets SIRS criteria: leukocytosis, febrile, tachycardia - lactic acid: 1.5 - suspected source: abscesses - wound culture obtained on 04/27: MRSA with resistance to gentamicin and oxacillin - blood culture obtained on 04/27: NGTD - urine culture: Ecoli and klebsiella with resistance to fluoroquinolones and bactrim - antibiotics: Vanc, cefe, flagyl started on 04/27, transitioned to Levaquin 04/29, discontinued on 04/30. Transitioned to doxy and cefepime based on susceptibilities. Patient is afebrile, blood pressure stable Continue doxycycline and cefepime 3 more days based on the wound culture and urine culture Abscess: Code(s): L02.91 - Cutaneous abscess, unspecified Status: Deleted Assessment and Plan: - wound culture obtained on 04/27: MRSA with resistance to gentamicin and oxac illin - blood culture obtained on 04/27: NGTD - CT abdomen/pelvis: 1. Stool distends the rectum. 2. Partially visualized fat stranding in the right buttocks, consistent with cellulitis. No abscess. - antibiotics: Vanc, cefe, flagyl started on 04/27, transitioned to Levaquin 04/29, discontinued on 04/30. Transitioned to doxy and cefepime based on susceptibilities. - surgery consulted s/p I&D of complex buttock abscess x2 on 04/[address] Cristian alcazar to transition to oral antibiotics and continue daily packing changes Fecal impaction in rectum: Code(s): K56.41 - Fecal impaction Status: Acute Assessment and Plan: CT abdomen/pelvis: 1. Stool distends the rectum. 2. Partially visualized fat stranding in the right buttocks, consistent with cellulitis. No abscess. - s/p fleets enema on 04/27 - 2 bowel movements on 04/28 Urinary tract infection: Code(s): N39.0 - Urinary tract infection, site not specified Status: Acute Assessment and Plan: - UA concerning for infection - UC obtained on 04/27/24: Ecoli with resistance to fluoroquinolones and bactrim, Klebsiella with resistance to unasym, fluoroquinolones, macrobid, and bactrim - no previous micro to be reviewed - antibiotics: Vanc, cefe, flagyl started on 04/27, transitioned to Levaquin 04/29, discontinued on 04/30. Transitioned to doxy and cefepime based on susceptibilities. Diabetes: Code(s): E11.9 - Type 2 diabetes mellitus without complications Status: Chronic Assessment and Plan: home glipizide, trulicity and insulin 16 units semglee, ss with meals, metformin Accuckeck ac/hs start on ss, hypoglycemia protocol, add 11 units of lantus during hospitalization hga1c 7.5 Resume home medication on discharge Hypertension: Code(s): I10 - Essential (primary) hypertension Status: Chronic Assessment and Plan: Chronic, current home medications include hctz 25 mg daily and losartan 12.5 mg daily - Patients blood pressure has been well controlled despite not being on her home medications. Discussed with patients RN that the home medication reconciliation has not been completed since patients admission. She is to call her facility and get updated list then complete the med recs today. - Monitor Hypokalemia: Code(s): E87.6 - Hypokalemia Status: Acute Assessment and Plan: K was replaced in ed monitor Corrected Congestive heart failure: Code(s): I50.9 - Heart failure, unspecified Status: Chronic Assessment and Plan: Chronic, does not appear in acute exacerbation echo 07/2023: LVEF 65-70% with grade I diatolic dysfunction Patients blood pressure has been well controlled despite not being on her home medications, HCTZ and losartan. monitor Overactive bladder: Code(s): N32.81 - Overactive bladder Status: Acute Assessment and Plan: continue home hieu Patient will be discharged to long-term today Time Spent with Patient Time attestation: Total time spent providing and/or coordinating discharge services: Exam Narrative: GENERAL: Pleasant, in no acute distress. Well-nourished. - EYES: EOMI. Anicteric. - HENT: Moist mucous membranes. - LUNGS: Clear to auscultation bilateral ly, no wheezing, rhonchi, or rales. - CARDIOVASCULAR: Regular rate and rhyth m. No murmur. No JVD. - ABDOMEN: Soft, non-tender and non-dist ended. No palpable masses. - EXTREMITIES: No edema. Peripheral puls es 2+. Non-tender. - NEUROLOGIC: No focal neurological defi cits. CN II-XII grossly intact. - PSYCHIATRIC: Awake, Alert and oriented x 3. Appropriate mood and affect. - LYMPH: No cervical lymphadenopathy. -Skin: Abscesses to the mid back and rig ht hip region without noted discharge. P ictures uploaded to patient chart. DS: Data Data Completed and Pending Labs on day of discharge: Labs from last 24 hours 05/01/24 04/30/24 04/30/24 07:38 21:12 16:44 POC Capillary Glucose 182 H 235 H 189 H 04/30/24 11:22 POC Capillary Glucose 282 H Preliminary micro results at discharge 04/27/24 10:03 Anaerobic Culture - Preliminary Abscess 04/27/24 16:00 Anaerobic Culture - Preliminary Buttock 04/27/24 00:51 Anaerobic Culture - Preliminary Abscess 04/27/24 00:51 Blood Culture - Preliminary Blood 04/27/24 00:51 Blood Culture - Preliminary Blood Discharge Plan Discharge Attending physician on discharge: Levy Cannon Consulting providers: Clarke Foster Discharging Clinician: Latasha Quintero Anticipated Discharge Date/Time: 04/30/24 14:32 Patient Disposition: SNF Activity: as tolerated Diet: as tolerated and diabetic Wound Care Instructions: other - see discharge instructions Discharge Instructions: Discharge disposition: Patient admitted to the hospital for abscesses to her buttocks resulting in sepsis Underwent an incision and drainage of these abscess on 04/[address] Foster Take medications as prescribed Change packing daily with 1/2 iodoform gauze Monitor site for worsening infection including redness, pain, swelling and drainage Follow up with surgery in 2 weeks Patient developed a fecal impaction during admission requiring an enema Continue bowel regimen and monitor bowel movements Diabetes Monitor blood pressures Patients blood pressure was well controlled despite not being on her home medications (losartan 12.5 mg daily and HCTZ 25 mg daily). Continue to hold these medications at discharge and follow up with primary care provider in regards to resuming them. Take caution while standing, rising, or moving Change positions slowly taking a break between each position change If you standing feel dizzy sat back down and take a break Encouraged to continue with yearly vaccinations Return to the emergency department if he developed sudden shortness of breath, chest pain, nausea, vomiting, upset stomach or intractable diarrhea Return to the emergency department if you develop fever greater than 101.5 Follow-up with the primary care physician within 1-2 weeks Thank you for [facility] for your healthcare needs Patient Language: Vietnamese Stand Alone Forms: General Discharge Information Follow-up/Referrals: Sreekanth,Samanta Esteban MD [Primary Care Provider] - 1 Week Clarke Foster DO [Physician] - 2 Weeks Discharge Medications: New doxycycline hyclate 100 mg capsule 100 mg PO DAILY Qty: 7 0RF cefepime in dextrose 5 % 1 gram/50 mL piggyback 1 g IV Q12H 3 Days Continued losartan 25 mg tablet 12.5 mg PO DAILY magnesium oxide 250 mg magnesium tablet 250 mg PO DAILY metformin 1,000 mg tablet 1,000 mg PO DAILY simvastatin 5 mg tablet 5 mg PO HS acetaminophen 500 mg tablet 500 mg PO Q6H PRN (Reason: Pain (Scale Score 1-3)) meclizine 25 mg tablet 25 mg PO TID PRN (Reason: Dizziness) Trulicity 3 mg/0.5 mL pen injector 3 mg subcut WEEKLY Rx Instructions: SATURDAY glipizide 10 mg tablet extended release 24hr 20 mg PO DAILY aspirin [Adult Aspirin Regimen] 81 mg tablet,delayed release (DR/EC) 81 mg PO DAILY albuterol sulfate 90 mcg/actuation HFA aerosol inhaler 2 puff inhalation Q4H PRN (Reason: Shortness Of Breath Or Wheezing) insulin glargine-yfgn [Semglee(insulin glarg-yfgn)Pen] 100 unit/mL (3 mL) insulin pen 16 unit subcut HS hydrochlorothiazide 25 mg tablet 25 mg PO DAILY Qty: 90 2RF montelukast 10 mg tablet 10 mg PO HS ketoconazole 2 % cream 1 applic TOPICAL BID Rx Instructions: AFFECTED AREAS insulin glargine-yfgn [Semglee(insulin glarg-yfgn)Pen] 100 unit/mL (3 mL) insulin pen 16 unit SUBCUT HS fluticasone propion-salmeterol 250-50 mcg/dose blister with device 1 inh INHALATION DAILY multivitamin [Daily-Gisell] Tablet 1 tablet PO DAILY dapagliflozin propanediol 5 mg tablet 5 mg PO DAILY ferrous sulfate [FeroSul] 325 mg (65 mg iron) tablet 325 mg PO DAILY gabapentin 100 mg capsule 100 mg PO TID glucose Tablet,Chewable 4 g PO Q15M PRN (Reason: hypoglycemia) Rx Instructions: until symptoms of low blood sugar are controlled insulin lispro [Humalog KwikPen Insulin] 100 unit/mL insulin pen 10 unit subcut TIDWM loperamide [Anti-Diarrheal (loperamide)] 2 mg capsule 2 mg PO DAILY PRN (Reason: loose stool) magnesium hydroxide 400 mg/5 mL suspension 30 ml PO DAILY PRN (Reason: constipation) oxybutynin chloride 5 mg tablet 5 mg PO DAILY omega 9-eiq-pte-fish oil 300 mg (120 mg- 180mg)-1,000 mg capsule 1 cap PO DAILY Date of admission: 04/27/24 15:50 Primary Care Provider: Sreekanth,Samanta Esteban Admitting Provider: Neena Torres V. Attending physician on admission: Latasha Quintero Condition: Stable
[2024-05-01 11:23] LABS: Glucose Point of Care 261 mg/dl (65-105)
[2024-05-01 11:57] LABS: Basophils Absolute Auto 0.1 K/mm3 (0.0-0.1); Basophils Percent Auto 0.4 % (0.2-1.2); Eosinophils Absolute Auto 0.6 K/mm3 (0-0.3); Hemoglobin 11.2 g/dL (12.0-15.0); Immature Granulocyte Absolute 0.42 K/mm3 (0.00-0.031); Immature Granulocyte Percent A 2.3 % (0-0.5); Lymphocytes Absolute Auto 4.32 K/mm3 (0.9-3.2); Lymphocytes Percent Auto 23.9 % (18.3-44.2); Mean Corpuscular Hemoglobin 29.2 pg (26-34); Mean Corpuscular Volume 91.1 fl (80-100); Mean Platelet Volume 8.1 fl (7.4-10.4); Monocytes Absolute Auto 1.1 K/mm3 (0.1-0.6); Monocytes Percent Auto 5.9 % (2.6-8.5); Neutrophils Absolute Auto 11.6 K/mm3 (1.3-6.7); Neutrophils Percent Auto 64.5 % (45.5-73.1); Platelet Count Result 609 k/mm3 (150-375); Red Blood Count 3.84 M/mm3 (4.2-5.4); Red Cell Distribution Width 14.2 % (11.5-14.5); White Blood Count 18.1 K/mm3 (4.5-10.0)
[2024-05-01 12:00] VITALS: BP 116/58; PULSE 83; RESP 18; TEMP 36.3; O2SAT 94
[2024-05-01 12:06] LABS: Alanine Aminotransferase 18 U/L (6-35); Albumin Level 3.1 g/dL (3.5-5.1); Alkaline Phosphatase 80 U/L (38-126); Anion Gap 3 mmol/L (4-12); Aspartate Amino Transferase 35 U/L (14-36); Bilirubin,Total 0.2 mg/dL (0.2-1.3); Blood Urea Nitrogen 10 mg/dL (7-17); Calcium 8.7 mg/dL (8.4-10.2); Carbon Dioxide 24 mmol/L (22-30); Chloride 104 mmol/L (98-107); Estimated CRCL calculation 63 ml/min; Estimated Glomerular Filt Rate > 60; Glucose 241 mg/dL (65-110); Potassium 3.7 mmol/L (3.4-5.0); Sodium 131 mmol/L (137-145)
[2024-05-01] MEDS: INSULIN ASPART (*BKC) 100 UNITS/ML SUB-Q (12:52)
== END 2024-05-01 14:45 | DRG 872 ==
LOC: ANHED 04-27 03:01 → ANH3MEDSUR 04-27 03:29
PROVIDERS: Nurse Practitioner; Nurse Practitioner Family; Student in an Organized Health Care Education/Training Program; Surgery; Admitting Provider Internal Medicine; Emergency Provider Physician Assistant; PCP Hospitalist; Visit Provider Hospitalist
PROC: 0Y900ZX Drainage of Right Buttock, Open Approach, Diagnostic (ICD-10-PCS; CPT 46040; principal; 2024-04-27 16:30)
DX: A41.9 Sepsis, unspecified organism (principal); L02.31 Cutaneous abscess of buttock; N39.0 Urinary tract infection, site not specified; Z16.23 Resistance to quinolones and fluoroquinolones; Z16.29 Resistance to other single specified antibiotic; L03.317 Cellulitis of buttock; I50.32 Chronic diastolic (congestive) heart failure; B95.62 Methicillin resistant Staphylococcus aureus infection as the cause of diseases classified elsewhere; B96.20 Unspecified Escherichia coli [E. coli] as the cause of diseases classified elsewhere; K56.41 Fecal impaction; E87.6 Hypokalemia; N32.81 Overactive bladder; I11.0 Hypertensive heart disease with heart failure; E78.5 Hyperlipidemia, unspecified; E11.9 Type 2 diabetes mellitus without complications; L89.309 Pressure ulcer of unspecified buttock, unspecified stage; L22 Diaper dermatitis; D64.9 Anemia, unspecified; M19.90 Unspecified osteoarthritis, unspecified site; I35.0 Nonrheumatic aortic (valve) stenosis; Z85.828 Personal history of other malignant neoplasm of skin; Z86.73 Personal history of transient ischemic attack (TIA), and cerebral infarction without residual deficits; Z90.49 Acquired absence of other specified parts of digestive tract; Z99.3 Dependence on wheelchair
CPT/HCPCS: 36415; 36569; 74177; 80048; 80053; 81001; 82565; 82948; 83036; 83605; 83735; 85025; 85027; 85652; 86140; 87040; 87070; 87075; 87086; 87181; 87186; 87205; 94640; 96361; 96365; 96375; 99285; A9270; C1751; G0378; J0692; J1650; J1815; J1836; J2003; J2270; J2371; J2704; J3010; J3370; J7030; J7120; Q9967

== ENCOUNTER 2024-09-15 14:28 | Outpatient (CLI) | payer MEDICARE, MEDICAID, SELFPAY ==
--- OUTSIDE RECORDS SUMMARY | 2024-09-15 14:40 | XMS_ITS | Clinical Summary ---
Author Organization [facility] Jovanny Camejo Address [address] [place] [address] Care Team Providers Care Marine Steam Fitter Name Role Phone Matilde Rossi DO Primary Care Provider [phone] Allergies Active Allergy Reactions Criticality Noted Date Comments Cefaclor Rash Low 03/02/2019 Sulfamethoxazole-Trimethoprim Rash Low 2018 Medications aspirin (ECOTRIN EC) 81 mg Tablet, Delayed Release (E.C.) Take 81 mg by mouth daily. Active mirabegron (MYRBETRIQ) 50 mg Extended Release 24 hour tablet Take by mouth daily. Active multivitamin (DAILY-HALEIGH) tablet Take 1 Tablet by mouth daily. Active ferrous sulfate 325 mg (65 mg iron) tablet Take 325 mg by mouth daily. Active omega-3 fatty acids-fish oil 300-1,000 mg Capsule Take by mouth daily. Active furosemide (LASIX) 40 mg tablet Take 40 mg by mouth daily. Active empagliflozin (JARDIANCE) 25 mg tablet Take by mouth daily physical therapist. Active losartan (COZAAR) 25 mg tablet Take 25 mg by mouth daily. Active magnesium oxide 250 mg magnesium Tablet Take by mouth. Activ e ascorbic acid, vitamin C, (VITAMIN C) 500 mg tablet Take 500 mg by mouth daily. Active cholecalciferol , Vitamin D3, 5,000 unit Capsule Take 5,000 Units by mouth daily. Active glimepiride (AMARYL) 4 mg tablet Take 4 mg by mouth 2 times daily with meals. Active metFORMIN (GLUCOPHAGE) 1,000 mg tablet Take 1,000 mg by mouth 2 times daily with meals. Active acetaminophen (TYLENOL) 500 mg tablet Take 500 mg by mouth daily at bedtime. PRN Active cyanocobalamin 1,000 mcg Tablet Take 1,000 mcg by mouth every 30 days. Active meclizine (ANTIVERT) 25 mg tablet Take 25 mg by mouth 3 times daily as needed for Dizziness. Active nystatin (MYCOSTATIN) 100,000 unit/gram Cream Apply to affected area 2 times daily. PRN LINNETTE DERMATITIS Active levoFLOXacin (LEVAQUIN) 500 mg tablet Take 1 Tablet (500 mg) by mouth daily. 7 Tablet 9 Active Active Problems No known active problems Family History Medical History Relation Name Comments Heart Disease Brother Heart Disease Mother Heart Disease Sister Relation Name Status Comments Brother Alive Father Mother Sister Alive Social History Tobacco Use Types Packs/Day Years Used Date Smoking Tobacco: Passive Smo ke Exposure - Never Smoker Smokeless Tobacco: Never Alcohol Use Standard Drinks/Week Comments Never 0 (1 standard drink = 0.6 oz pur e alcohol) Comments Unknown Sex and Gender Information Value Date Recorded Sex Assigned at Not on file Legal Sex Female 1:39 PM CDT Gender Identity Not on file Sexual Orientation Not on file Last Filed Vital Signs Vital Sign Reading Time Taken Comments Blood Pressure 89/69 03/09/2019 11:16 AM DIRECTOR METABOLISM Pulse 94 03/09/2019 11:16 AM DIRECTOR METABOLISM Temperature 36.8 C (98.2 F) 03/09/2019 11:16 AM DIRECTOR METABOLISM Respiratory Rate - - Oxygen Saturation 96% 03/09/2019 11:16 AM DIRECTOR METABOLISM Inhaled Oxygen Concentration - - Weight 72.7 kg (160 lb 3.2 oz) 03/09/2019 11:16 AM DIRECTOR METABOLISM Height 171.5 cm (5' 7.5 ) 03/09/2019 11:16 AM CS T Body Mass Index 24.72 03/09/2019 11:16 AM DIRECTOR METABOLISM Plan of Treatment Health Maintenance Due Date Last Done Comments DIABETES ANNUAL RETINAL EXAM 1963 DIABETES MICROALBUMIN ANNUAL SCREEN 1963 LDL CHOLESTEROL ANNUAL 1963 ZOSTER VACCINE (1 of 2) 1995 DTAP/TDAP/TD VACCINES (1 - Tdap) 07/21/2010 07/21/1906/07/2003 RSV VACCINE (60+ or ) (1 - 1-dose 75+ series) 01/14/2020 INFLUENZA VACCINE (#1) 2023 3, 02/07/2022, 02/22/2021, Additional history exists DIABETES HBA1C Q 6 MONTHS 03/14/2024 09/12/2023 DIABETES ANNUAL FOOT EXAM 09/11/2024 09/12/2023 OSTEOPOROSIS SCREENING 01/03/2028 , 01/02/2023, 09/23/2020, Additional history exists PNEUMOCOCCAL VACCINE 50+ YEARS Completed 02/25/2017 , 07/28/2015 Care Teams Marine Steam Fitter Relationship Specialty Start Date End Date Matilde Rossi DO [facility] [place] [address] PCP - General Internal Medicine 02/09/19
--- OUTSIDE RECORDS SUMMARY | 2024-09-15 14:40 | XMS_ITS | Encounter Summary ---
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 us Historical Provider Final Res ult documented in this encounter Visit Diagnoses Not on filedocumented in this encounter Care Teams Binder Stripper Hand Relationship Specialty Start Date End Date Samanta Stack MD [address] [place] [id number] PCP - General Family Medicine 12/29/19 08/04/24 No, Physician PCP - General 08/05/24 documented as of this encounter
--- OUTSIDE RECORDS SUMMARY | 2024-09-15 14:40 | XMS_ITS | Encounter Summary ---
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 us Historical Provider Final Res ult documented in this encounter Visit Diagnoses Not on filedocumented in this encounter Care Teams Pilot Boat Operator Relationship Specialty Start Date End Date Samanta Stack MD [address] [place] [id number] PCP - General Family Medicine 12/29/19 08/04/24 No, Physician PCP - General 08/05/24 documented as of this encounter
--- OUTSIDE RECORDS SUMMARY | 2024-09-15 14:40 | XMS_ITS | Encounter Summary ---
Author Organization [facility] Address [address] [place] [address] Care Team Providers Care Minister Assistant Name Role Phone Unavailable Primary Care Provider Unavailabl e Reason for Visit * Diagnostic Imaging (Routine) - Pending Review Specialty Diagnoses / Procedures Referred By Hi t Referred To Contact Procedures Breast Imaging Screening Outside Reference Transcribed Order, Provider Referral ID Status Reason Start Date Expiration Date V isits Requested Visits Authorized [id number] Pending Review 10/14/2023 11/12/2024 1 1 Encounter Details Date Type Department Care Team (Late st Contact Info) Description 08/12/2018 Hospital Encounter [facility] [address] [place] [address] Social History Tobacco Use Types Packs/Day Years Used Date Smoking Tobacco: Never Smokeless Tobacco: Never Alcohol Use Standard Drinks/Week Comments Not Currently 0 (1 standard drink = 0.6 oz pur e alcohol) AUDIT-C Answer Date Recorded Q1: How often do you have a drink containing alcohol? Never 06/07/2022 Q2: How many drinks containi ng alcohol do you have on a typical day when you are drinking? Patient does not drink Q3: How often do you have si x or more drinks on one occasion? 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 Never 06/07/2022 12:56 PM Lola Louise MA Q2: How many drinks containing alcohol do you have on a typical day when you are drinking? Patient does not drink 06/07/2022 12:56 PM Lola Louise MA Q3: How often do you have six or more drinks on one occasion? Never 06/07/2022 12:56 PM Lola Louise MA documented as of this encounter Plan of Treatment Not on file documented as of this encounter Procedures Procedure Name Priority Date/Time Associated Diagnosis Comments BREAST IMAGING MG SCREENING OUTSIDE REFERENCE Routine 08/12/2018 12:00 AM CDT documented in this encounter Results * Breast Imaging Screening Outside Reference (08/12/2018 12:00 AM CDT) Impressions [facility] - 10/14/2023 2:20 PM CDT These images are for Reference purposes only and have not been reviewed by [facility] Radiology. There will be no report generated by a [facility] Radiologist. Narrative [facility] - 10/14/2023 2:20 PM CDT EXAMINATION: Images For Reference Purposes Only us Provider Transcribed Order IMG MAMMO PROCEDURES Final Result [facility] documented in this encounter Visit Diagnoses Not on filedocumented in this encounter
--- OUTSIDE RECORDS SUMMARY | 2024-09-15 14:40 | XMS_ITS | Clinical Summary ---
Author Organization [facility] Address [facility] [place] [address] Care Team Providers Care Diesel Dinkey Engineer Name Role Phone Narciso Landis MD Primary Care Provider [phone] Allergies Active Allergy Reactions Criticality Noted Date Comments Cefaclor Rash Medium 03/02/2019 Sulfamethoxazole-Trimethoprim Rash Medium 2018 Trimethoprim Rash Medium 01/08/2008 Medications vitamin C (ASCORBIC ACID) 500 MG tablet 11/23/2023 Activ e ASPIRIN LOW DOSE 81 MG tablet 11/23/2023 Active CALCIUM ANTACID 500 MG chewable tablet 10/24/2023 Active NATURAL VITAMIN D-3 125 MCG (5000 UT) Tab 11/23/2023 Activ e cyanocobalamin (B-12) 1000 MCG/ML injection 11/01/2023 Ac tive Dapagliflozin Propanediol 5 MG Tab 04/21/2024 Active TRULICITY 4.5 MG/0.5ML injection (PEN) 03/17/2024 Act nereida JARDIANCE 25 MG tablet 11/23/2023 Active FEROSUL 325 (65 Fe) MG tablet 11/23/2023 Activ e fluticasone-salm eterol (ADVAIR DISKUS) 250-50 MCG/ACT inhaler 02/29/2024 Act nereida TRELEGY ELLIPTA 200-62.5-25 MCG/ACT AEROSOL POWDER, BREATH ACTIVATED 11/15/2023 Active gabapentin (NEURONTIN) 100 MG capsule 04/13/2024 Active glipiZIDE XL 10 MG 24 hr tablet 04/13/2024 Act nereida CONTOUR NEXT TEST test strip 10/21/2023 Act nereida hydroCHLOROthiaz parag (HYDRODIURIL) 25 MG tablet 04/11/2024 Active Insulin Aspart FlexPen 100 UNIT/ML Solution Pen-injector 02/06/2024 Active Insulin Glargine-yfgn 100 UNIT/ML Solution Pen-injector 02/22/2024 Active insulin lispro, 1 Unit Dial, (HUMALOG) 100 UNIT/ML injection (PEN) 04/21/2024 Act nereida BD AUTOSHIELD DUO [facility]G X 5 [facility] 11/15/2023 Active losartan (COZAAR) 25 MG tablet 04/11/2024 Active magnesium oxide (MAG-OX) 250 MG tablet 11/23/2023 Active metFORMIN (GLUCOPHAGE) 1000 MG tablet 03/20/2024 Acti ve mirabegron ER (MYRBETRIQ) 50 MG 24 hr tablet 11/23/2023 Act nereida montelukast (SINGULAIR) 10 MG tablet 04/18/2024 Active multiple vitamin (TAB-A-HALEIGH) Tab 11/23/2023 Ac tive fish oil (OMEGA-3 FATTY ACID) 1000 MG Cap capsule 11/23/2023 Active oxybutynin (DITROPAN) 5 MG tablet 04/25/2024 Active simvastatin (ZOCOR) 5 MG tablet 04/24/2024 Active B-D INTEGRA SYRINGE 25G X 5/8 3 ML [facility] 11/01/2023 Acti ve acetaminophen (TYLENOL) 500 MG tablet Take 1 tablet (500 mg total) by mouth daily. Active LANTUS SOLOSTAR 100 UNIT/ML injection (PEN) 08/10/2024 Act nereida meclizine (ANTIVERT) 25 MG tablet Take 1 tablet (25 mg total) by mouth. Active Active Problems Problem Noted Date Diagnosed Date CHF (congestive heart failure) ([facility]) 08/11/2024 Abscess 05/06/2024 Primary hypertension 05/06/2024 Mixed hyperlipidemia 05/06/2024 Type 2 diabetes mellitus wit hout complication, with long-term current use of insulin ([facility]) 05/06/2024 Centrilobular emphysema ([facility]) 2024 OAB (overactive bladder) 05/06/2024 Persistent asthma without complication ([facility]) 12/04/2022 Senile purpura 12/04/2022 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, bilateral ([facility]) 12/04/2022 Hemiplegia and hemiparesis f ollowing cerebral infarction affecting right dominant side ([facility]) 12/08/2021 Unspecified atherosclerosis of [place] arteries of extremities, bilateral legs 12/08/2021 Aortic valve stenosis, moderate 06/12/2021 Overview (08/11/2024): Following with cardiology at [facility] Osteopenia 10/06/2020 Basal cell carcinoma (BCC) of skin of nose 04/08 Overview (08/11/2024): Following with [facility] Iron deficiency 01/04/2020 Urinary incontinence 01/04/2020 Vitamin B12 deficiency 01/04/2020 Vitamin D deficiency 01/04/2020 Resolved Problems Problem Noted Date Diagnosed Date Resolved Date Pre-op evaluation 01/11/2022 08/17/2024 Encounters Date Type Department Care Team Description 08/18/2024 3:20 PM CDT Long-Term [facility] [address] [address] Narciso Landis MD Long-Term (routine) 08/11/2024 3:20 PM CDT Long-Term [facility] [address] [address] Narciso Landis MD Long-Term (routine) 07/01/2024 9:46 AM DRUM STOCK CLERK - 07/01/2024 11:59 PM DRUM STOCK CLERK Hospital Encounter [facility] [address] [place] [address] Narciso Landis MD Discharge Disposition: Home or Self Care (Routine Discharge) 07/01/2024 Orders Only [facility] [address] [place] [address] Narciso Landis MD from Last 3 Months Immunizations Immunization Administration Dates Next Due FLUAD (IIV, Trivalent, 0.5 M L Pre-filled Syringe) 02/20/2018,02/17/2017 Fluzone High Dose (IIV, triv alent, 0.5mL) 01/28/2019,01/04/2019 Fluzone High Dose - >Age 65 (Prefilled Syringe) 02/07/2022,02/19/2020 Influenza (Generic) 02/07/2021,02/27/2013 Influenza Adult (Generic) 02/28/2023,,02/02/2016,2014,01/20/2015,01/28/2014 PFIZER COVID-19 (ORIGINAL FORMULATION, PURPLE CAP) mRNA, LNP-S, PF, 30 MCG/0.3 ML DOSE 03/16/2021 Pneumococcal (Pneumovax 23) 02/25/2017 Pneumococcal (Prevnar 13) 07/28/2015 Td (TDVAX) 07/20/2010 Td, Adsorbed, Preservative F ree, Adult Use, Lf Unspecified 07/20/2010,06/07/2003 Social History Tobacco Use Types Packs/Day Years Used Date Smoking Tobacco: Unknown Tobacco Cessation:Counseling Given: No Comments No Sex and Gender Information Value Date Recorded Sex Assigned at Female 08/18/2024 8:36 AM CDT Legal Sex Female 10:28 AM DRUM STOCK CLERK Gender Identity Female 08/18/2024 8:36 AM CDT Sexual Orientation Not on file Last Filed Vital Signs Vital Sign Reading Time Taken Comments Blood Pressure 110/70 08/18/2024 8:33 AM CDT Pulse 71 08/18/2024 8:33 AM CDT Temperature 36.4 C (97.6 F) 08/18/2024 8:33 AM CDT Respiratory Rate 18 08/18/2024 8:33 AM CDT Oxygen Saturation 96% 08/18/2024 8:33 AM CDT Inhaled Oxygen Concentration - - Weight 71.7 kg (158 lb) 08/18/2024 8:33 AM CDT Height - - Body Mass Index - - Plan of Treatment Health Maintenance Due Date Last Done Comments ASCVD LDL 1945 Kidney Health Evaluation 1945 Lipid Panel 1945 Diabetes: Retinopathy Eye Exam 1963 Hepatitis C 1963 Zoster Vaccines (1 of 2) 1995 Annual Medicare Wellness Visit 2010 DTaP, Tdap and Td Vaccines (1 - Tdap) 07/21/2010 07/20/2010, 07/20/2010, 06/07/2003 RSV Immunization or 60+ Years (1 - 1-dose 75+ series) 01/14/2020 COVID-19 Vaccine (5 - season) 2024 10/20/2021, 03/16/2021, 07/06/2020, Additional history exists PHQ-2 (Physician [place]) 05/06/2024 Hemoglobin A1C 11/05/2024 05/08/2024, 05/0 01/2024, 03/07/2022, Additional history exists Pneumococcal Vaccine: 50+ Years Completed 02/25/2017, 07/28/2015 Dexa Scan (General) Completed 01/02/2023, 01/02/2023, 09/23/2020, Additional history exists Meningococcal B Vaccine Aged Out No l onger eligible based on patient's age to complete this topic Meningococcal Vaccine Aged Out No kristian desmond eligible based on patient's age to complete this topic RSV Immunizations Under 20 Months Aged Out No longer eligible based on patient's age to complete this topic Procedures Procedure Name Priority Date/Time Associated Diagnosis Comments URINE BACTERIA CULTURE Routine 07/01/2024 3:30 AM DRUM STOCK CLERK UTI (urinary tract infection) URINALYSIS MICRO ONLY Routine 07/01/2024 3:30 AM DRUM STOCK CLERK HC URINALYSIS AUTO W/O MICRO Routine 07/01/2024 3:30 AM DRUM STOCK CLERK UTI (urinary tract infection) HEMOGLOBIN, GLYCOSYLATED Routine 05/08/2024 8:40 AM DRUM STOCK CLERK Diabetes mellitus ([facility]) from Last 3 Months or Most Recently Relevant to Health Maintenance Results * (ABNORMAL) URINALYSIS (07/01/2024 3:30 AM DRUM STOCK CLERK) COLOR (U) YELLOW 07/01/2024 10:13 AM DRUM STOCK CLERK [facility] TRANSPARENCY CLOUDY 07/01/2024 10:13 AM DRUM STOCK CLERK [facility] SPECIFIC GRAVITY (U) 1.025 1.000 - 1.030 07/01/2024 10:13 AM [facility] U PH 5.5 5.0 - 9.0 07/01/2024 10:13 AM [facility] LEUKOCYTES (U) 2+(A) NEGATIVE 07/01/2024 10:13 AM [facility] NITRITES NEGATIVE NEGATIVE 07/01/2024 10:13 AM [facility] PROTEIN RANDOM (U) NEGATIVE NEGATIVE 07/01/2024 10:13 AM [facility] GLUCOSE (U) 3+(A) NEGATIVE 07/01/2024 10:13 AM [facility] KETONES MG/DL (U) NEGATIVE NEGATIVE 07/01/2024 10:13 AM [facility] BILIRUBIN (U) NEGATIVE NEGATIVE 07/01/2024 10:13 AM [facility] BLOOD (U) 1+(A) NEGATIVE 07/01/2024 10:13 AM [facility] URINE FOX MODERATE 07/01/2024 10:13 AM [facility] Comment:LARGE BUDDING YEAST URINE SPECIMEN OBTAINED BY CLEAN CATCH PROCEDURE / Unknown 07/01/2024 3:30 AM DRUM STOCK CLERK us Narciso Landis MD URINE ORDERABLES Final Resu lt [facility] [address] [place] [address], * URINE BACTERIA CULTURE (07/01/2024 3:30 AM DRUM STOCK CLERK) SPEC DESCRIPTION URINE CLEAN CATCH 07/01/2024 9:47 AM [facility] SPECIAL REQUESTS NO SPECIAL REQUEST 07/01/2024 9:47 AM DRUM STOCK CLERK [facility] CULTURE RESULT NO GROWTH 2 DAYS 07/03/2024 7:39 AM DRUM STOCK CLERK [facility] URINE SPECIMEN OBTAINED BY CLEAN CATCH PROCEDURE / Unknown 07/01/2024 3:30 AM DRUM STOCK CLERK 07/01/2024 9:55 AM DRUM STOCK CLERK Narciso Landis MD [facility] Final Result Performing Organization Address City/[facility]/ZIP Co de Phone Number [facility] [address] [place] [address], [place] [phone] [facility] [address] [place] [address], [place] [phone] * URINALYSIS MICRO ONLY (07/01/2024 3:30 AM DRUM STOCK CLERK) WBC/HPF 25-50 0 - 5 /HPF 07/01/2024 10:13 AM DRUM STOCK CLERK [facility] RBC/HPF 5-10 0 - 5 /HPF 07/01/2024 10:13 AM DRUM STOCK CLERK [facility] EPI/HPF FEW /HPF 07/01/2024 10:13 AM DRUM STOCK CLERK [facility] BACTERIA (U) FEW /HPF 07/01/2024 10:13 AM DRUM STOCK CLERK [facility] 07/01/2024 3:30 AM DRUM STOCK CLERK Narciso Landis MD URINE ORDERABLES Final Resu lt [facility] [address] [place] [address], [place] [phone] * (ABNORMAL) HEMOGLOBIN, GLYCOSYLATED (05/08/2024 8:40 AM DRUM STOCK CLERK) HGB A1C 7.8(H) <5.7 % 05/08/2024 12:34 PM DRUM STOCK CLERK [facility] Comment: INCREASED RISK OF DIABETES <5.7% NON-DIABETES 5.7-6.4% INCREASED RISK FOR FUTURE DIABETES > OR = 6.5 CONSISTENT WITH DIABETES STANDARDS OF MEDICAL CARE IN DIABETES-2010 DIABETES CARE, 33(SUPP 1): S1-S61,2009 ESTIMATED AVG GLUCOSE 177 mg/dL 05/08/2024 12:34 PM DRUM STOCK CLERK [facility] 05/08/2024 8:40 AM DRUM STOCK CLERK us Narciso Landis MD LABORATORY Final Resul t [facility] [address] [place] [address], from Last 3 Months or Most Recently Relevant to Health Maintenance Insurance MEDICARE MEDICAID Care Teams Diesel Dinkey Engineer Relationship Specialty [place] [address] [place] [address] PCP - General FAMILY PRACTICE 05/04/24
--- OUTSIDE RECORDS SUMMARY | 2024-09-15 14:40 | XMS_ITS | Encounter Summary ---
Author Organization [facility] Care Team Providers Care Fender Repairer Name Role Phone Samanta Stack MD Primary Care Pro vider No, Physician Primary Care Provider [phone] Encounter Details Date Type Department Care Team (Latest Contact Info) Description 01/08/2017 Orders Only [facility] Provider, MD Mary [address] [place] [id number] Social History Tobacco Use Types Packs/Day Years Used Date Smoking Tobacco: Never Assessed Comments Unknown Sex and Gender Information Value Date Recorded Sex Assigned at Not on file Legal Sex Female 7:52 PM LEAD PRESSMAN Gender Identity Not on file Sexual Orientation Not on file documented as of this encounter Plan of Treatment Not on file documented as of this encounter Procedures Procedure Name Priority Date/Time Associated Diagnosis Comments SCAN - LABS 01/08/2017 12:00 AM CDT documented in this encounter Results * SCAN - LABS (01/08/2017 12:00 AM CDT) Narrative 01/08/2017 12:00 AM CDT Ordered by an unspecified provider. us Historical Provider Final Res ult documented in this encounter Visit Diagnoses Not on filedocumented in this encounter Care Teams Fender Repairer Relationship Specialty Start Date End Date Samanta Stack MD [address] [place] [id number] PCP - General Family Medicine 12/29/19 08/04/24 No, Physician PCP - General 08/05/24 documented as of this encounter
--- OUTSIDE RECORDS SUMMARY | 2024-09-15 14:41 | XMS_ITS | Referral Summary ---
Author Organization 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 Worker Name Role Phone No, Physician Primary Care Provider [phone] Encounters Date Type Department Care Team Description 09/10/2024 3:10 PM CDT - 09/10/2024 11:59 PM CDT Hospital Encounter [facility] [address] [place] [address] Pulmonary nodules Discharge Disposition: Discharge to home or self care 07/21/2024 Telephone [facility] [place] [address] [place] [address] [address] [place] [address] Samanta Stack MD Medical Question/Miscellane ous from Last 3 Months Allergies Active Allergy Reactions Criticality Noted Date Comments Cefaclor Rash Medium 03/02/2019 Sulfamethoxazole-Trimethoprim Rash Medium 2018 Trimethoprim Rash Medium 01/08/2008 Medications aspirin 81 mg enteric coated tablet Take 325 mg by mouth daily Take 325mg daily Active ascorbic acid (VITAMIN C) 500 mg tablet,chewable Take 1 tablet/chew tab (500 mg total) by mouth daily Active magnesium oxide (MAG-OX) 250 mg (150.8 mg elemental) tablet Take by mouth Active acetaminophen (TYLENOL) 500 mg tablet Take 1 tablet (500 mg total) by mouth daily Active ferrous sulfate 325 mg (65 mg of elemental iron) tablet Take 1 tablet (325 mg total) by mouth daily Active meclizine (ANTIVERT) 25 mg tablet Take 1 tablet (25 mg total) by mouth 3 (three) times a day as needed Active diaper,brief,adult, disposable miscIndications:Uri nary incontinence, unspecified type Use TID prn 200 each 1 01/01/20 20 Active multivitamin tablet Take 1 tablet by mouth daily Active lancets 33 gauge misc Active cyanocobalamin (Vitamin B-12) 1,000 mcg/mL injection Inject 1 mL (1,000 mcg total) into the muscle as instructed every 4 (four) weeks 1 mL 3 06/17/19 21 Active calcium carbonate (TUMS) 400 mg calcium (1,000 mg) tablet,chewableIndi cations:Post-Menopa usal Osteoporosis Prevention Take 1 tablet (1,000 mg total) by mouth 3 (three) times a day before meals 90 tablet 11 10/07/19 21 Active glucose 4 gram chewable tabletIndications:T ype 2 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, with long-term current use of insulin (HCC) If blood sugar <70 take 1 tablet and recheck blood sugar in 15 minutes. If still <70 repeat. 50 tablet 1 02/11/20 21 Active Calcium Antacid 200 mg calcium (500 mg) chewable tablet 04/07/20 21 Active Daily-Gisell, with folic acid, 400 mcg tablet 04/07/20 21 Active BD SafetyGlide Syringe 3 mL 25 x 5/8 syringe 03/23/20 21 Active Fish OiL 340-1,000 mg capsule 04/07/20 21 Active cholecalciferol (VITAMIN D-3) 5,000 unit tablet 04/07/20 21 Active Contour Next Meter misc 03/17/20 21 Active BD Integra Syringe 3 mL 25 gauge x 5/8 syringe 05/10/19 22 Active dulaglutide (Trulicity) 4.5 mg/0.5 mL pen injectorIndications :Type 2 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, with long-term current use of insulin (HCC) Inject 0.5 mL (4.5 mg total) under the skin once a week 6 mL 1 06/06/19 23 Active omega 2-uml-gvo-fish oil 300 mg (120 mg- 180mg)-1,000 mg capsule 09/04/19 23 Active glipiZIDE XL (GLUCOTROL XL) 10 mg 24 hr tabletIndications:t ype 2 diabetes mellitus Take 2 tablets (20 mg total) by mouth daily 180 tablet 1 09/05/19 23 Active Jardiance 25 mg tabletIndications:T ype 2 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, with long-term current use of insulin ([facility]) Take 1 tablet (25 mg total) by mouth daily 90 tablet 1 09/05/19 23 Active losartan (COZAAR) 25 mg tabletIndications:H ypertension associated with diabetes ([facility]) Take 0.5 tablets (12.5 mg total) by mouth daily 45 tablet 1 09/05/19 23 Active metFORMIN (GLUCOPHAGE) 1,000 mg tabletIndications:T ype 2 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, with long-term current use of insulin ([facility]) Take 1 tablet (1,000 mg total) by mouth 2 (two) times a day after breakfast and dinner 180 tablet 1 09/05/19 23 Active Myrbetriq 50 mg tablet extended release 24 hrIndications:Urina ry incontinence, unspecified type Take 1 tablet (50 mg total) by mouth daily 90 tablet 1 09/05/19 23 Active simvastatin (ZOCOR) 5 mg tabletIndications:H yperlipidemia associated with type 2 diabetes mellitus ([facility]) Take 1 tablet (5 mg total) by mouth nightly 90 tablet 1 09/05/19 23 Active albuterol HFA (Ventolin HFA) 90 mcg/actuation inhalerIndications: Dyspnea and respiratory abnormalities Inhale 2 puffs every 4 (four) hours as needed for wheezing or shortness of breath (coughing) 18 g 5 10/04/19 23 Active montelukast (SINGULAIR) 10 mg tabletIndications:C hronic rhinitis Take 1 tablet (10 mg total) by mouth nightly 90 tablet 1 11/29/19 23 Active fluticasone-umeclid in-vilanter (Trelegy Ellipta) 200-62.5-25 mcg inhaler Inhale 1 puff daily 28 each 6 12/12/19 23 Active Contour Next Test Strips stripIndications:Ty pe 2 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, with long-term current use of insulin ([facility]),Type 2 diabetes mellitus without complication, with long-term current use of insulin ([facility]) USE TO TEST BLOOD SUGAR 4-6 TIMES DAILY 200 strip 3 01/18/20 23 Active ketoconazole (NIZORAL) 2 % cream Apply topically 2 (two) times a day 15 g 1 02/21/20 23 Active BD Ultra-Fine Short Pen Needle 31 gauge x 5/16 needle 02/14/20 23 Active BD AutoShield Duo Pen Needle 30 gauge x 3/16 needle 05/27/19 24 Active Easy Touch Safety Lancets 30 gauge misc 07/31/19 24 Active insulin aspart (NovoLOG) 100 unit/mL (3 mL) pen for injectionIndication s:Type 2 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, with long-term current use of insulin ([facility]) INJECT 10 UNITS SUBCUTANEOUS THREE TIMES A DAY BEFORE MEALS 27 mL 1 11/26/19 24 Active insulin glargine (LANTUS, BASAGLAR, SEMGLEE) 100 unit/mL (3 mL) pen for injectionIndication s:Type 2 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, with long-term current use of insulin ([facility]) Inject 5 Units under the skin daily 3 mL 04/13/20 21 2022 Discontin ued(Alter glenna therapy) insulin glargine (SEMGLEE-yfgn) 100 unit/mL (3 mL) pen for injectionIndication s:Type 2 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, with long-term current use of insulin ([facility]) Inject 18 Units under the skin nightly 15 mL 1 08/26/19 24 2024 Active Problems Problem Noted Date Diagnosed Date 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, associated with type 2 diabetes mellitus 12/04/2022 Assessment & Plan (06/13/2023 1:43 PM SUPERVISOR BLOOD): Following with optho Assessment & Plan (12/04/2022 1:21 PM CDT): Following with optho Senile purpura 12/04/2022 Assessment & Plan (12/04/2022 1:49 PM CDT): stable Persistent asthma without complication Assessment & Plan (06/13/2023 1:31 PM SUPERVISOR BLOOD): Following with pulmonology Continue singulair & daily inhaler, albuterol as needed Assessment & Plan (03/08/2023 2:30 PM CDT): Following with pulmonology Continue singulair & daily inhaler, albuterol as needed Assessment & Plan (12/04/2022 1:33 PM CDT): Following with pulmonology, reviewed note Continue singulair & daily inhaler, albuterol as needed Pre-op evaluation 01/11/2022 Assessment & Plan (01/11/2022 1:33 PM CDT): Preoperative examination Procedure: cataract surgery Date: TBD Surgeon: TBD Risk of procedure: low RCRI: Class III risk, 10.1% 30d risk of , CA or cardiac arrest METs: poor Personal or family hx of problems with anesthesia: no Medical History / Risk factors: Cardiovascular disease (CA, angina, arrhythmia, HF): history of CHF Lung disease (asthma, COPD): no GI disease (liver, gall bladder): no Uro/Renal disease (CKD, nephrolithiasis): no MSK disease (neck or jaw pain/stiffness/arthritis): arthritis Neurological disease (seizures, CVA): CVA Endocrine disease (thyroid, DM2): dm Overall assessment of risk: needs cardiac evaluation. Hemiplegia and hemiparesis f ollowing cerebral infarction affecting right dominant side 12/08/2021 Assessment & Plan (06/13/2023 1:31 PM SUPERVISOR BLOOD): stable Assessment & Plan (03/08/2023 2:29 PM CDT): stable Assessment & Plan (12/04/2022 1:19 PM CDT): stable Assessment & Plan (09/04/2022 1:16 PM CDT): stable Assessment & Plan (01/11/2022 1:16 PM CDT): stable Assessment & Plan (12/08/2021 12:09 PM CDT): Stable Unspecified atherosclerosis of [place] arteries of extremities, bilateral legs 12/08/2021 Assessment & Plan (03/08/2023 2:29 PM CDT): Continue statin Assessment & Plan (12/04/2022 1:15 PM CDT): Continue statin Assessment & Plan (09/04/2022 1:16 PM CDT): Continue statin Assessment & Plan (01/11/2022 1:15 PM CDT): Continue statin Assessment & Plan (12/08/2021 12:10 PM CDT): Continue statin Aortic valve stenosis, moderate 06/12/2021 Overview (06/12/2021): Following with cardiology at [facility] 10/06/2020 Medicare annual wellness visit, subsequent 06/03 Assessment & Plan (12/04/2022 1:31 PM CDT): Reviewed PMH & FH PHQ Screening reviewed Hearing/vision screening reviewed, referrals placed as needed Fall risk reviewed Reviewed medications and supplements Specialists: cardiology, pulmonology evidence of cognitive impairment HCM: orders placed as needed Assessment & Plan (10/12/2021 2:20 PM CDT): Reviewed PMH & PHQ Screening PHQ-2 Total Score (If total score is 3 or more points, staff should administer the PHQ-9): 0 Hearing/vision screening reviewed, referrals placed as needed Fall risk reviewed Reviewed medications and supplements Specialists: cardiology evidence of cognitive impairment HCM: orders placed as needed Assessment & Plan (10/06/2020 2:15 PM CDT): Reviewed PMH & FH PHQ Screening PHQ-2 Total Score (If total score is 3 or more points, staff should administer the PHQ-9): 0 Hearing/vision screening: not indicated Fall risk reviewed Reviewed medications and supplements Specialists: cardiology No evidence of cognitive impairment HCM: UTD Assessment & Plan (06/03/2020 6:31 AM SUPERVISOR BLOOD): Reviewed PMH & FH PHQ Screening PHQ-2 Total Score (If total score is 3 or more points, staff should administer the PHQ-9): 0 Hearing/vision screening: not indicated Fall risk reviewed Reviewed medications and supplements Specialists: cardiology No evidence of cognitive impairment HCM: colonoscopy 2011, request records. Due for dexa, ordered. 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, upcoming mohs surgery Hyperlipidemia associated with type 2 diabetes sabas moncho 03/15/2020 Assessment & Plan (06/13/2023 1:31 PM SUPERVISOR BLOOD): Continue statin Assessment & Plan (03/08/2023 2:28 PM CDT): Continue statin Assessment & Plan (12/04/2022 1:14 PM CDT): Continue statin Assessment & Plan (09/04/2022 1:19 PM CDT): Continue statin Assessment & Plan (06/07/2022 1:21 PM SUPERVISOR BLOOD): Continue statin Assessment & Plan (01/11/2022 1:15 PM CDT): Continue statin Assessment & Plan (10/12/2021 2:21 PM CDT): Continue statin Assessment & Plan (07/14/2021 6:06 AM SUPERVISOR BLOOD): Continue statin Assessment & Plan (06/15/2021 4:57 PM SUPERVISOR BLOOD): Continue statin Assessment & Plan (09/15/2020 3:53 PM CDT): Lab Results Component Value Date LDLCALC 70 01/01/2020 At goal Continue 5mg simvastatin Assessment & Plan (09/01/2020 2:47 PM CDT): On 5mg simvastatin Assessment & Plan (06/03/2020 6:27 AM SUPERVISOR BLOOD): On 5mg simvastatin Assessment & Plan (03/15/2020 11:37 AM SUPERVISOR BLOOD): On 5mg simvastatin Overweight with body mass in dex (BMI) of 25 to 25.9 in adult 03/15/2020 Assessment & Plan (03/15/2020 11:39 AM SUPERVISOR BLOOD): BMI Follow-up includes: nutrition counseling. Vitamin B12 deficiency 01/04/2020 Assessment & Plan (06/03/2020 6:29 AM SUPERVISOR BLOOD): On 1,000mcg cyanocobalamin Vitamin D deficiency 01/04/2020 Assessment & Plan (06/03/2020 6:29 AM SUPERVISOR BLOOD): On 5,000 international units daily Assessment & Plan (03/15/2020 11:30 AM SUPERVISOR BLOOD): Recent level 77, can d/c supplementation Iron deficiency 01/04/2020 Assessment & Plan (06/03/2020 6:29 AM SUPERVISOR BLOOD): Stable Continue supplementation Assessment & Plan (03/15/2020 11:30 AM SUPERVISOR BLOOD): Stable Continue supplementation Urinary incontinence 01/04/2020 Assessment & Plan (02/10/2021 1:55 PM CDT): Continue mrybetriq Assessment & Plan (09/01/2020 2:47 PM CDT): Will d/c jardiance Continue 40mg lasix, pending review of cardiology records Assessment & Plan (06/03/2020 6:28 AM SUPERVISOR BLOOD): On myrbetriq 50mg Assessment & Plan (01/04/2020 6:45 AM CDT): On myrbetriq 50mg Supplies ordered and faxed Hypertension associated with diabetes Assessment & Plan (06/13/2023 1:31 PM SUPERVISOR BLOOD): BP controlled Continue 12.5mg losartan Assessment & Plan (03/08/2023 2:28 PM CDT): BP controlled Continue 12.5mg losartan Assessment & Plan (12/04/2022 1:14 PM CDT): BP at goal Continue 12.5mg losartan Assessment & Plan (09/04/2022 1:18 PM CDT): BP at goal Continue 12.5mg losartan Assessment & Plan (06/07/2022 1:20 PM SUPERVISOR BLOOD): BP at goal Continue 12.5mg losartan Assessment & Plan (01/11/2022 1:15 PM CDT): BP at goal Continue 12.5mg losartan Assessment & Plan (10/12/2021 2:21 PM CDT): BP at goal Continue 12.5mg losartan Assessment & Plan (07/14/2021 6:05 AM SUPERVISOR BLOOD): BP at goal Continue 12.5mg losartan Assessment & Plan (06/15/2021 4:57 PM SUPERVISOR BLOOD): BP at goal Continue 12.5mg losartan Assessment & Plan (05/11/2021 1:46 PM SUPERVISOR BLOOD): BP at goal Continue 12.5mg losartan Assessment & Plan (04/13/2021 3:27 PM SUPERVISOR BLOOD): Blood pressure low Will decrease losartan to 12.5mg daily Assessment & Plan (09/15/2020 3:52 PM CDT): BP at goal Continue 25mg losartan Assessment & Plan (09/01/2020 2:46 PM CDT): BP at goal Continue 25mg losartan Assessment & Plan (06/03/2020 6:27 AM SUPERVISOR BLOOD): BP at goal Continue 25mg losartan Assessment & Plan (03/15/2020 11:35 AM SUPERVISOR BLOOD): BP at goal Continue 25mg losartan Assessment & Plan (01/01/2020 1:23 PM CDT): BP 116/62 today, at goal Continue 25mg losartan Type 2 diabetes mellitus wit h 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, with long-term current use of insulin Assessment & Plan (09/12/2023 3:41 PM CDT): Still having some blood sugar above goal, but also having borderline lows, will await A1c before adjusting medications Continue novolog 9 units TIDAC, lantus 18 units daily, 4.5mg trulicity, metformin 1000mg twice a day, jardiance 25mg & glipizide 20mg daily Assessment & Plan (07/25/2023 11:01 AM CDT): Improved, but persistently uncontrolled Increase novolog to 8 units TIDAC Continue lantus 18 units daily, 4.5mg trulicity, metformin 1000mg twice a day, jardiance 25mg & glipizide 20mg daily Assessment & Plan (06/13/2023 1:43 PM SUPERVISOR BLOOD): A1c 9.2, uncontrolled Start novolog 5 units TIDAC Continue lantus 15 units daily, 4.5mg trulicity, metformin 1000mg twice a day, jardiance 25mg & glipizide 20mg daily Assessment & Plan (03/10/2023 2:28 PM SUPERVISOR BLOOD): A1c 9.3, uncontrolled Increase lantus to 15 units daily Continue 4.5mg trulicity, metformin 1000mg twice a day, jardiance 25mg & glipizide 20mg daily Assessment & Plan (12/04/2022 1:48 PM CDT): A1c 9.3 Start 10 units insulin daily, given handout on hypoglycemia precautions Continue 4.5mg trulicity, metformin 1000mg twice a day, jardiance 25mg & glipizide 20mg daily Assessment & Plan (09/04/2022 1:40 PM CDT): Lab Results Component Value Date HGBA1C 8.7 09/04/2022 Discussed restarting lantus, she defers currently Continue 4.5mg trulicity, metformin 1000mg twice a day, jardiance 25mg & glipizide 20mg daily Assessment & Plan (06/07/2022 1:11 PM SUPERVISOR BLOOD): Lab Results Component Value Date HGBA1C 7.8 06/07/2022 Continue 4.5mg trulicity, metformin 1000mg twice a day, jardiance 25mg & glipizide 20mg daily Assessment & Plan (01/11/2022 1:50 PM CDT): Lab Results Component Value Date HGBA1C 8.1 01/11/2022 Continue 4.5mg trulicity, metformin 1000mg twice a day, jardiance 25mg & glipizide 20mg daily If a1c increases further would restart low dose lantus Assessment & Plan (10/12/2021 2:21 PM CDT): Check a1c Continue 4.5mg trulicity, metformin 1000mg twice a day and jardiance 25mg Assessment & Plan (07/13/2021 2:05 PM SUPERVISOR BLOOD): Lab Results Component Value Date HGBA1C 7.5 06/15/2021 Continue 4.5mg trulicity, metformin 1000mg twice a day and jardiance 25mg Assessment & Plan (06/15/2021 4:56 PM SUPERVISOR BLOOD): Lab Results Component Value Date HGBA1C 7.5 06/15/2021 Continue 1,000mg metformin twice a day, 25mg jardiance, 20mg XR glipizide & 4.5mg trulicity Assessment & Plan (05/11/2021 1:46 PM SUPERVISOR BLOOD): Lab Results Component Value Date HGBA1C 8.2 (H) 03/16/2021 Persistently elevated post prandial blood sugar so will increase trulicity to 4.5mg weekly Given borderline low fasting blood sugar will d/c lantus once increases trulicity Continue metformin 1000mg twice a day, jardiance 25mg & 20mg glipizide XR Assessment & Plan (04/13/2021 3:24 PM SUPERVISOR BLOOD): Improved But with persistent post prandial hyperglycemia so will increase trulicity to 3mg weekly Mild fasting hypoglycemia so decrease lantus to 5 units nightly Continue metformin, jardiance, & glipizide Assessment & Plan (03/16/2021 5:07 PM SUPERVISOR BLOOD): Improved But with persistent hyperglycemia so will increase trulicity to 1.5mg weekly Continue metformin, jardiance, glipizide and lantus Assessment & Plan (02/10/2021 1:54 PM CDT): Remains uncontrolled with blood sugar in 300's up to 436 Will start trulicity, continue metformin, jardiance, glipizide and lantus Assessment & Plan (11/12/2020 9:07 AM CDT): Lab Results Component Value Date HGBA1C 8.6 11/11/2020 Reviewed blood sugar log: blood sugar improved, but still uncontrolled with blood sugar above goal. Discussed/stressed importance of diet modification Continue 1000mg metformin twice a day, 25mg jardiance, 20mg glipizide XR & 10 units of lantus Assessment & Plan (09/15/2020 3:47 PM CDT): Uncontrolled Decrease lantus to 16 units given borderline low fasting blood sugar Start glipizide XR for post-prandial blood sugar Advise diabetic diet Discussed hypoglycemia precautions Assessment & Plan (09/01/2020 2:45 PM CDT): Uncontrolled Start insulin D/c glimepiride & jardiance Continue metformin Assessment & Plan (06/03/2020 6:27 AM SUPERVISOR BLOOD): DM Care Plan: Meds: Metformin - Continue 1000 mg BID Jardiance - 25mg Glimepiride - increase to 8mg Losartan- continue Statin - continue Eye Exam: yearly, request records Foot Exam: 0/10 monofilament 828/20 BP: At goal, on Arb. Continue meds Smoking - none Influenza - UTD Pneumococcal - UTD A1C - Lab Results Component Value Date HGBA1C 8.2 (H) 03/15/2020 Lipids: On statin, checked yearly Urine Microalbumin - on Arb - no recheck Assessment & Plan (03/15/2020 11:33 AM SUPERVISOR BLOOD): DM Care Plan: Meds: will likely need to start short acting insulin given post meal time insulin 200-300's, she desire to recheck a1c Metformin - Continue 1000 mg BID Jardiance - 25mg Glimepiride - 4mg Losartan- continue Statin - continue Eye Exam: yearly, request records Foot Exam: 0/10 monofilament 828/20 BP: At goal, on Arb. Continue meds Smoking - none Influenza - UTD Pneumococcal - request records A1C - recheck today Lipids: On statin, checked yearly Urine Microalbumin - on Arb - no recheck Assessment & Plan (01/04/2020 6:42 AM CDT): DM Care Plan: Meds: Metformin - Continue 1000 mg BID Jardiance - 25mg Glimepiride - 4mg Losartan- continue Statin - continue Eye Exam: yearly Foot Exam: 0/10 monofilament 8/28/20 BP: At goal, on Arb. Continue meds Smoking - none Influenza - this fall Pneumococcal - request records A1C - check today Lipids: On statin, checked yearly Urine Microalbumin - on Arb - no recheck CHF (congestive heart failure) Assessment & Plan (06/13/2023 1:31 PM SUPERVISOR BLOOD): Following with cardiology Assessment & Plan (03/08/2023 2:30 PM CDT): Following with cardiology Assessment & Plan (12/04/2022 1:15 PM CDT): Following with cardiology Low salt diet Assessment & Plan (09/04/2022 1:18 PM CDT): Following with cardiology Low salt diet Assessment & Plan (06/07/2022 1:20 PM SUPERVISOR BLOOD): Following with cardiology, upcoming ECHO Low salt diet Assessment & Plan (01/11/2022 1:52 PM CDT): Check bnp Following with cardiology, request records Assessment & Plan (10/12/2021 2:21 PM CDT): Asymptomatic off lasix Assessment & Plan (07/14/2021 6:05 AM SUPERVISOR BLOOD): Called pharmacy and discontinued lasix Assessment & Plan (06/15/2021 4:57 PM SUPERVISOR BLOOD): Supposed to be off lasix, but still appears to be taking, will send d/c order Assessment & Plan (05/11/2021 1:47 PM SUPERVISOR BLOOD): Following with cardiology Off lasix Assessment & Plan (04/13/2021 3:27 PM SUPERVISOR BLOOD): Continue 20mg lasix daily for now Request cardiology notes to review, consider stopping Assessment & Plan (03/16/2021 5:07 PM SUPERVISOR BLOOD): Persistently dry on exam so will decrease lasix further to 20mg daily Assessment & Plan (02/10/2021 1:54 PM CDT): Appears dry on exam, will decrease lasix to 30mg Assessment & Plan (10/28/2020 1:48 PM CDT): Reviewed cmp, within normal limits, ok to continue lasix Assessment & Plan (09/01/2020 2:45 PM CDT): Following with cardiology, request records Assessment & Plan (06/03/2020 6:28 AM SUPERVISOR BLOOD): Symptoms stable Continue lasix 40mg Following with cardiology Assessment & Plan (03/15/2020 11:29 AM SUPERVISOR BLOOD): Symptoms stable Continue lasix 40mg Referred to cardiology, encouraged to schedule Assessment & Plan (01/04/2020 6:43 AM CDT): Symptoms stable Continue lasix 40mg, check labs Previously seen by Dr. Villalba, will place new referral Immunizations Immunization Administration Dates Next Due Influenza, Quad, Adjuvantate d, Intramuscular 02/22/2021 Influenza, Quadrivalent, Hig h Dose, Preservative Free, Intrr 02/07/2022,02/19/2020 Influenza, Quadrivalent, Spl it, Intramuscular 01/24/2018,02/02/2016,02/23/2015,01/20 Influenza, Quadrivalent, Spl it, Preservative Free, Intramuscular 02/28/2023,01/28/2014 Influenza, Trivalent, Adjuva nted, Intramuscular 02/20/2018,02/17/2017 Influenza, Trivalent, High D ose, Split, Preservative Free, Intramuscular 01/28/2019,01/04/2019 Influenza, Trivalent, IM (MDV) 02/27/2013 Influenza, Unspecified 02/07/2021 [employer] SARS-CoV-2 Monovalent Vaccination (12+ Yrs) PURPLE 03/16/2021,06/27/2020,06/06/2020 Pneumococcal Conjugate PCV 13 07/28/2015 Pneumococcal Polysaccharide PPV23 02/25/2017 TD Preservative Free 06/07/2003 Td, Unspecified 07/20/2010 Td, adsorbed 07/20/2010 Social History Tobacco Use Types Packs/Day Years Used Date Smoking Tobacco: Never Smokeless Tobacco: Never Tobacco Cessation:Counseling Given: Not Answered Alcohol Use Standard Drinks/Week Comments Not Currently [...] on file Legal Sex Female 7:52 PM SUPERVISOR BLOOD Gender Identity Not on file Sexual Orientation Not on file Last Filed Vital Signs Vital Sign Reading Time Taken Comments Blood Pressure 118/60 09/23/2023 1:38 PM CDT Pulse 94 09/23/2023 1:38 PM CDT Temperature 36.6 C (97.8 F) 09/23/2023 1:38 PM CDT Respiratory Rate 18 09/23/2023 1:38 PM CDT Oxygen Saturation 96% 09/23/2023 1:38 PM CDT Inhaled Oxygen Concentration - - Weight 75.3 kg (166 lb) 09/23/2023 1:38 PM CDT Height 170.2 cm (5' 7 ) 09/23/2023 1:38 PM CDT Body Mass Index 26 09/23/2023 1:38 PM CDT Plan of Treatment Not on file Procedures Procedure Name Priority Date/Time Associated Diagnosis Comments DIAGNOSTIC MAMMOGRAM BILATERAL W ALBERTO Schedule Routine, Read Routine (OP Routine) 10/15/2023 3:00 PM CDT Subareolar mass of left breast EGFR Routine 09/12/2023 3:22 PM CDT Type 2 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, with long-term current use of insulin (HCC) HEMOGLOBIN A1C Routine 09/12/2023 3:22 PM CDT Type 2 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, with long-term current use of insulin (HCC) ALBUMIN CREATININE RATIO, URINE Routine 09/12/2023 3:22 PM CDT Type 2 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, with long-term current use of insulin (HCC) HM DIABETES EYE EXAM Routine 06/10/2023 LIPID PANEL Routine 03/08/2023 3:21 PM CDT Hyperlipidemia associated with type 2 diabetes mellitus (HCC) DEXA AXIAL SKELETON BONE DENSITY 1 OR MORE SITES Schedule Routine, Read Routine (OP Routine) 01/02/2023 1:42 PM CDT Post-menopausal STOOL DNA COLOGUARD Routine 09/14/2020 12:30 PM CDT Colon cancer screening HEPATITIS C ANTIBODY Routine 01/01/2020 2:04 PM CDT Encounter for hepatitis C screening test for low risk patient from Last 3 Months or Most Recently Relevant to Health Maintenance Results * Diagnostic Mammogram Bilateral W Alberto (10/15/2023 3:00 PM CDT) Anatomical Region Laterality Modality Breast Bilateral Mammography 10/15/2023 3:16 PM CDT Impressions 10/15/2023 3:16 PM CDT 1. No evidence of malignancy in either breast. 2. No suspicious mammographic correlate for questioned subareolar left breast mass on CT, which likely reflected normal breast tissue. OVERALL FINAL ASSESSMENT: BI-RADS Category 2: Benign. RECOMMENDATION: Annual screening mammography is recommended. Electronically signed by: Carline Carr M.D. Narrative 10/15/2023 3:16 PM CDT EXAMINATION: BILATERAL DIGITAL DIAGNOSTIC MAMMOGRAM INCLUDING CAD AND BILATERAL DIGITAL BREAST TOMOSYNTHESIS HISTORY: 78-year-old woman with questionable subareolar left breast mass seen on recent chest CT. COMPARISON: Mammogram 08/12/2018. TECHNIQUE: Full field digital mammographic views of BOTH breasts were performed, including computer aided detection (CAD) and BILATERAL digital breast tomosynthesis (DBT). BREAST PARENCHYMAL COMPOSITION: There are scattered areas of fibroglandular density. MAMMOGRAM FINDINGS: There is no suspicious mass, distortion, or microcalcification in either breast. There has been no significant interval change from the previous study. Right breast calcifications are stable from 2019 and benign. Specifically, spot compression images were performed in the subareolar left breast, without identification of underlying mass. Procedure Note Carline Carr MD - 10/15/2023 EXAMINATION: BILATERAL DIGITAL DIAGNOSTIC MAMMOGRAM INCLUDING CAD AND BILATERAL DIGITAL BREAST TOMOSYNTHESIS HISTORY: 78-year-old woman with questionable subareolar left breast mass seen on recent chest CT. COMPARISON: Mammogram 08/12/2018. TECHNIQUE: Full field digital mammographic views of BOTH breasts were performed, including computer aided detection (CAD) and BILATERAL digital breast tomosynthesis (DBT). BREAST PARENCHYMAL COMPOSITION: There are scattered areas of fibroglandular density. MAMMOGRAM FINDINGS: There is no suspicious mass, distortion, or microcalcification in either breast. There has been no significant interval change from the previous study. Right breast calcifications are stable from 2019 and benign. Specifically, spot compression images were performed in the subareolar left breast, without identification of underlying mass. IMPRESSION: 1. No evidence of malignancy in either breast. 2. No suspicious mammographic correlate for questioned subareolar left breast mass on CT, which likely reflected normal breast tissue. OVERALL FINAL ASSESSMENT: BI-RADS Category 2: Benign. RECOMMENDATION: Annual screening mammography is recommended. Electronically signed by: Carline Carr M.D. us Samanta Stack MD IMG MAMMO PROCEDU RES Final Result * eGFR (09/12/2023 3:22 PM CDT) eGFR 88 >=60 mL/min/1. 73 m2 Comment: Interpretive Data Reference Interval Normal >/= 90 mL/min/1.73m2 Mildly decreased* 60 - 89 mL/min/1.73m2 Mildly to moderately decreased 45 - 59 mL/min/1.73m2 Moderately to severely decreased 30 - 44 mL/min/1.73m2 Severely decreased 15 - 29 mL/min/1.73m2 Kidney Failure < 15 mL/min/1.73m2 *Relative to young adult level Estimated glomerular filtration rate is determined by the 2020 CKD-EPI equation recommended by the National Kidney Foundation (A Unifying Approach to GFR Estimation: Recommendations of the NKF-ASK Task Force on Reassessing the Inclusion of Race in Diagnosing Kidney Disease, JASN 2020). The CKD-EPI equation should not be used for patients with unstable renal function and has not been validated in children and those over 70. Current interpretive data was last reviewed 2021. Testing performed by: [address] [address] Blood 09/12/2023 3:22 PM CDT 09/12/2023 4:25 PM CDT Samanta Stack MD LAB BLOOD ORDERAB LES Final Result [facility] [address] [facility] Department of Laboratories [place], [place] [id number] * (ABNORMAL) Albumin Creatinine Ratio, Urine (09/12/2023 3:22 PM CDT) Albumin Ur <12.0 mg/L Comment: Interpretive Data No reference range established. Current interpretive data was last revised 2018. Testing performed by: [address] [address] Creatinine Ur 18.8 mg/dL [facility] Comment: Interpretive Data No reference range established. Current interpretive data was last revised 2018. Testing performed by: [address] [address] Albumin Creatinine Ratio, Ur <64(H) 1 - 29 mg/g [facility] [place] Comment:Testing performed by : [address] [address] Urine 09/12/2023 3:22 PM CDT 09/12/2023 4:17 PM CDT Samanta Stack MD LAB URINE ORDERAB LES Final Result Performing Organization Address City/[facility] Co de Phone Number [facility] [address] [address] * (ABNORMAL) Hemoglobin A1c (09/12/2023 3:22 PM CDT) Pathologist [facility] Hgb A1C 7.9(H) 4.0 - 5.6 % Comment:Testing performed by : [facility], [address] [place] [address]., [address] Estimated Average Glucose 180 mg/dL [facility] Comment: The ADA recommends reporting an estimated Average Glucose (eAG) with all Hemoglobin A1c results using the equation derived from a study of 507 normal and diabetic adults. Minority populations were underrepresented and children were not included. (Diabetes Care 31:7340-3368, 2008). The eAG is not equivalent to a fasting glucose. Testing performed by: [address] [address] Blood 09/12/2023 3:22 PM CDT 09/12/2023 4:19 PM CDT Samanta Stack MD LAB BLOOD ORDERAB LES Final Result Performing Organization Address [facility] Co de Phone Number [facility] [place] [address] * (ABNORMAL) DIABETES EYE EXAM (06/10/2023) Pathologist [facility] SCRIBED DIABETIC DILATED EYE EXAM Abnormal Mary Morales MD HEALTH MAINTENANCE Final Result * Lipid panel (03/08/2023 3:21 PM CDT) Pathologist [facility] Cholesterol 141 30 - 199 mg/dL [facility] [place] Comment: Interpretive Data Ages < or = 19 years Acceptable: <170 mg/dL Borderline high: 170-199 mg/dL High: >or= 200 mg/dL Ages > or = 20 years Desirable: <200 mg/dL Borderline high: 200-239 mg/dL High: >or= 240 mg/dL Literature References: 1. Expert Panel on Integrated Guidelines for Cardiovascular Health and Risk Reduction in Children and Adolescents. Pediatrics 2011;128:S213 2. NCEP Expert Panel. Circulation 2004;110:227 Current Interpretive Data was last revised on 2017. Testing performed by: [address] [address] Triglycerides 63 <=149 mg/dL [facility] Comment: Interpretive Data Ages < or = 9 years Acceptable: <75 mg/dL Borderline high: 75-99 mg/dL High: >or= 100 mg/dL Ages 10 to 20 years Acceptable: <90 mg/dL Borderline high: 90-129 mg/dL High: >or= 130 mg/dL Ages > or = 20 years Desirable: <150 mg/dL Borderline high: 150-199 mg/dL High: 200-499 mg/dL Very high: >or= 499 mg/dL Literature References: 1. Expert Panel on Integrated Guidelines for Cardiovascular Health and Risk Reduction in Children and Adolescents. Pediatrics 2011;128:S213 2. NCEP Expert Panel. Circulation 2004;110:227 Current Interpretive Data was last revised on 2017. Testing performed by: [address] [address] HDL 64 >=40 mg/dL [facility] Comment: Interpretive Data Ages < or = 19 years Acceptable: >45 mg/dL Borderline low: 40-45 mg/dL Low: <40 mg/dL Ages > or = 20 years Desirable: >or= 60 mg/dL Low: <40 mg/dL Literature References: 1. Expert Panel on Integrated Guidelines for Cardiovascular Health and Risk Reduction in Children and Adolescents. Pediatrics 2011;128:S213 2. NCEP Expert Panel. Circulation 2004;110:227 Current Interpretive Data was last revised on 2017. Testing performed by: [address] [address] LDL, calculated 64 <=129 mg/dL [facility] Comment: Interpretive Data Ages < or = 19 years Acceptable: <110 mg/dL Borderline high: 110-129 mg/dL High: >or= 130 mg/dL Ages > or = 20 years Optimal: <100 mg/dL Near optimal: 100-129 mg/dL Borderline high: 130-159 mg/dL High: >160 mg/dL Literature References: 1. Expert Panel on Integrated Guidelines for Cardiovascular Health and Risk Reduction in Children and Adolescents. Pediatrics 2011;128:S213 2. NCEP Expert Panel. Circulation 2004;110:227 Current Interpretive Data was last revised on 2017. Testing performed by: [address] [address] Non-HDL Cholesterol 77 mg/dL [facility] [place] Comment: Interpretive Data Ages < or = 19 years Acceptable: <120 mg/dL Borderline high: 120-144 mg/dL High: >145 mg/dL Ages > or = 20 years When triglycerides are >200 mg/dL, Non-HDL cholesterol is a secondary target of therapy with treatment goals that are 30 mg/dL greater than the LDL cholesterol target. Literature References: 1. Expert Panel on Integrated Guidelines for Cardiovascular Health and Risk Reduction in Children and Adolescents. Pediatrics 2011;128:S213 2. NCEP Expert Panel. Circulation 2004;110:227 Current Interpretive Data was last revised on 2017. Testing performed by: [address] [address] Chol/HDL ratio 2 [facility] Comment:Testing performed by : [address] [address] Blood 03/08/2023 3:21 PM CDT 03/08/2023 4:07 PM CDT us Samanta Stack MD LAB BLOOD ORDERAB LES Final Result [facility] [address] [facility] Department of Laboratories [place], [place] [id number] * Dexa Axial Skeleton Bone Density 1 or 2 Site (01/02/2023 1:42 PM CDT) Anatomical Region Laterality Modality Body N/A Mammography 01/03/2023 7:51 AM CDT Narrative 01/03/2023 7:52 AM CDT EXAM DESCRIPTION: DEXA AXIAL SKELETON BONE DENSITY 1 OR MORE SITES REASON FOR STUDY: 77 y/o year old F with given history of: Postmenopausal status. Patient has a history of skin carcinoma and asthma or emphysema. 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 LEFT HIP: Total BMD is 0.970 g/cm2 T-score is 0.2 This is a 19.2% increase in comparison to prior exam which is statistically significant. Femoral neck BMD is 0.696 g/cm2 T-score is -1.4 FRAX: 10 year risk for a major osteoporotic fracture is 12 %, 10 year risk for a hip fracture is 2.5 % IMPRESSION: Low bone mass REFERENCE: Bone mineral density: Normal (T-score above or = -1.0) Low bone mass (T-score between -1.0 and -2.5) replaces the previously used term osteopenia Osteoporosis (T-score = or below -2.5) Medical evaluation for secondary causes of low bone mineral density may be appropriate. FRAX is a World Health Organization validated fracture risk assessment tool that calculates a person's 10 year probability of a major osteoporosis related fracture and hip fracture. According to the National Osteoporosis Foundation guidelines, postmenopausal women and men age 50 or older with low bone mass and a 10 year probability of a major osteoporosis related fracture = or greater than 20% or a 10 year probability of a hip fracture = or greater than 3% should be considered for treatment. For further information, including treatment recommendations, please refer to the 2019 ISCD Official Positions (http://www.iscd.org) and the NOF's Clinician's Guide to Prevention and Treatment of Osteoporosis (http://www.nof.org/professionals/clinical-guidelines) THIS IS AN ELECTRONICALLY VERIFIED FINAL REPORT 01/03/2023 7:52 AM - Electronically signed by Vivian Choudhary M.D. TW: TW Report ID: [id number] Reading Location: [id number] Procedure Note Vivian Choudhary MD - 01/03/2023 EXAM DESCRIPTION: DEXA AXIAL SKELETON BONE DENSITY 1 OR MORE SITES REASON FOR STUDY: 77 y/o year old F with given history of:Postmenopausal status. Patient has a history of skin carcinoma and asthma or emphysema. 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 LEFT HIP: Total BMD is 0.970 g/cm2 T-score is 0.2 This is a 19.2% increase in comparison to prior exam which isstatistically significant. Femoral neck BMD is 0.696 g/cm2 T-score is -1.4 FRAX: 10 year risk for a major osteoporotic fracture is 12 %, 10 year risk for ahip fracture is 2.5 % IMPRESSION: Low bone mass REFERENCE: Bone mineral density: Normal (T-score above or = -1.0) Low bone mass (T-score between -1.0 and -2.5) replaces thepreviously used term osteopenia Osteoporosis (T-score = or below -2.5) Medical evaluation for secondary causes of low bone mineral density may be appropriate. FRAX is a World Health Organization validated fracture risk assessmenttool that calculates a person's 10 year probability of a major osteoporosisrelated fracture and hip fracture. According to the National OsteoporosisFoundation guidelines, postmenopausal women and men age 50 or older with low bonemass and a 10 year probability of a major osteoporosis related fracture = or greater than 20% or a 10 year probability of a hip fracture = or greaterthan 3% should be considered for treatment. For further information, including treatment recommendations, please referto the 2019 ISCD Official Positions (http://www.iscd.org) and the NOF's Clinician's Guide to Prevention and Treatment of Osteoporosis (http://www.nof.org/professionals/clinical-guidelines) THIS IS AN ELECTRONICALLY VERIFIED FINAL REPORT 01/03/2023 7:52 AM - Electronically signed by Vivian Choudhary M.D. TW: TW Report ID: [id number] Reading Location: [place] [address] Samanta Stack MD [facility] DXA PROCEDURE S Final Result * Stool DNA - Cologuard (09/14/2020 12:30 PM CDT) Stool DNA - Cologuard Negative Not Applicable [employer] ([employer] #:[id number]) Comment: A negative result indicates a low likelihood that a colorectal cancer (CRC) or an advanced adenoma (adenomatous polyps with more advanced pre-malignant features) is present. The chance that a person with a negative Cologuard test has a colorectal cancer is less than 1 in 1500 (negative predictive value >99.9%) or has an advanced adenoma is less than 5.3% (negative predictive value 94.7%). These data are based on a prospective cross-sectional screening study of 10,000 individuals at average risk for colorectal cancer who were screened with both Cologuard and colonoscopy. (Melva Olson et al, N Engl J Med 2014;370(14):8530-8744) The normal value (reference range) for this assay is negative. COLOGUARD RE-SCREENING RECOMMENDATION: Periodic routine colorectal cancer screening is an important part of preventive healthcare for asymptomatic persons at average risk for colorectal cancer. Following a negative Cologuard result, the [place] Cancer Society and U.S. Multi-Society Task Force screening guidelines recommend a Cologuard re-screening interval of 3 years. References: Mexican Cancer Society (ACS). Colorectal cancer prevention and early detection. [place], [place]: [place] Cancer Society; [updated 2016 Aug 27]. https://www.cancer.org/cancer/zuurp-tdxita-pzvtwq/fmpqeqxqj-ehgtsqpay-tyjzxpy/ac s-rec ommendations.html. Accessed January 03, 2018; Jamison DK, Luis CR, Eris GarrisonK, Colorectal Cancer Screening: Recommendations for Physicians and Patients from the U.S. Multi-Society Task Force on Colorectal Cancer Screening, Am J Gastroenterology 2017; 112:4639-6569. TEST TYPE: Composite algorithmic analysis of stool DNA-biomarkers with hemoglobin immunoassay. Quantitative values of individual biomarkers are not reportable and are not associated with individual biomarker result reference ranges. PRECAUTIONS AND LIMITATIONS: Cologuard is intended for colorectal cancer screening of adults of either sex, 45 years or older, who are at average-risk for colorectal cancer (CRC). Cologuard has been approved for use by the U.S. FDA. Cologuard may produce a false negative or false positive result. A negative Cologuard test result does not guarantee the absence of CRC or advanced adenoma (pre-cancer). Patients with a negative Cologuard test result should be advised to continue participating in a colorectal cancer screening program. The screening interval for Cologuard is currently recommended at an interval of every 3 years by the [place] Cancer Society and U.S. Multi-Society Task Force. A false positive result occurs when Cologuard produces a positive result, even though a colonoscopy may not find colorectal cancer or precancerous polyps. The performance of Cologuard has been established in a cross sectional study (i.e., single point in time) of average-risk adults aged 50-84. Cologuard performance in patients ages 45 to 49 years was estimated by sub-group analysis of near-age groups. Cologuard performance data in a 10,000 patient pivotal study using colonoscopy as the reference method can be accessed at the following location: www.[employer]strap[employer].EarLens/results. Additional description of the Cologuard test process, warnings and precautions can be found at www.cologuardtest.com. Rx only. Stool 09/14/2020 12:3 0 PM CDT 09/15/2020 2:37 PM CDT us Samanta Stack MD LAB BODY FLUIDS A ND STOOLS ORDERABLES Final Result [employer] (CLIA #:[id number]) [place] [address] * Hepatitis C antibody (01/01/2020 2:04 PM CDT) Hep C Ab NONREACT NONREACTIVE [facility] Comment: Siemens CentaurXP using EMILY (chemiluminescent immunoassay) technology. NONREACTIVE: Antibodies to Hepatitis C not detected. This does not exclude early acute Hepatitis C infection, possibility of exposure to Hepatitis C, antibodies below detection limit, or to lack of antibody reactivity to the antigen used in this assay. EQUIVOCAL: Antibodies to Hepatitis C may or may not be present. Sample to be confirmed by real-time PCR method. REACTIVE: Antibodies to Hepatitis C detected.Sample to be confirmed by real-time PCR method. 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
--- OUTSIDE RECORDS SUMMARY | 2024-09-15 14:41 | XMS_ITS | Clinical Summary ---
Author Organization [facility] Address [address] [place] [address] Care Team Providers Care Sales Order Specialist Name Role Phone No, Physician Primary Care Provider [phone] Allergies Active Allergy Reactions Criticality Noted Date [...] edema, with long-term current use of insulin ([facility]) If blood sugar <70 take 1 tablet [...] edema, with long-term current use of insulin ([facility]) Inject 0.5 mL (4.5 mg total) under the skin once a week 6 mL 1 06/06/19 23 Active omega 4-onp-jej-fish oil 300 mg (120 mg- 180mg)-1,000 mg [...] edema, with long-term current use of insulin ([facility]) Take 1 tablet (25 mg total) by mouth daily 90 tablet 1 09/05/19 23 Active losartan (COZAAR) 25 mg tabletIndications:H ypertension associated with diabetes ([facility]) Take 0.5 tablets (12.5 mg total) by mouth daily 45 tablet 1 09/05/19 23 Active metFORMIN (GLUCOPHAGE) 1,000 mg tabletIndications:T ype 2 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, with long-term current use of insulin ([facility]) Take 1 tablet (1,000 mg total) by mouth 2 (two) times a day after breakfast and dinner 180 tablet 1 09/05/19 23 Active Myrbetriq 50 mg tablet extended release 24 hrIndications:Urina ry incontinence, unspecified type Take 1 tablet (50 mg total) by mouth daily 90 tablet 1 09/05/19 23 Active simvastatin (ZOCOR) 5 mg tabletIndications:H yperlipidemia associated with type 2 diabetes mellitus (HCC) Take 1 tablet (5 mg total) by [...] edema, with long-term current use of insulin ([facility]),Type 2 diabetes mellitus without complication, with long-term current use of insulin ([facility]) USE TO TEST BLOOD SUGAR 4-6 TIMES [...] with long-term current use of insulin (HCC) INJECT 10 UNITS SUBCUTANEOUS THREE TIMES A DAY BEFORE MEALS 27 mL 1 11/26/19 24 Active insulin glargine (LANTUS, BASAGLAR, SEMGLEE) 100 unit/mL (3 mL) pen for injectionIndication s:Type 2 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, with long-term current use of insulin (HCC) Inject 5 Units under the skin daily 3 mL 04/13/20 21 2022 Discontin ued(Alter glenna therapy) insulin glargine (SEMGLEE-yfgn) 100 unit/mL (3 mL) pen for injectionIndication s:Type 2 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, with long-term current use of insulin (HCC) Inject 18 Units under the skin nightly 15 mL 1 08/26/19 24 2024 Active Problems Problem Noted Date Diagnosed Date 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, associated with type 2 diabetes mellitus 12/04/2022 Assessment & Plan (06/13/2023 1:43 PM AREA RELIEF PILOT): Following with optho Assessment & Plan (12/04/2022 1:21 PM CDT): Following with optho Senile purpura 12/04/2022 Assessment & Plan (12/04/2022 1:49 PM CDT): stable Persistent asthma without complication Assessment & Plan (06/13/2023 1:31 PM AREA RELIEF PILOT): Following with pulmonology Continue singulair & daily [...] III risk, 10.1% 30d risk of , SD or cardiac arrest METs: poor Personal or family hx of problems with anesthesia: no Medical History / Risk factors: Cardiovascular disease (SD, angina, arrhythmia, HF): history of CHF Lung [...] 12/08/2021 Assessment & Plan (06/13/2023 1:31 PM AREA RELIEF PILOT): stable Assessment & Plan (03/08/2023 2:29 PM CDT): stable Assessment & Plan (12/04/2022 1:19 PM CDT): stable Assessment & Plan (09/04/2022 1:16 PM CDT): stable Assessment & Plan (01/11/2022 1:16 PM CDT): stable Assessment & Plan (12/08/2021 12:09 PM CDT): Stable Unspecified atherosclerosis of [place] arteries of extremities, bilateral legs 12/08/2021 Assessment & Plan (03/08/2023 2:29 PM CDT): Continue statin Assessment & Plan (12/04/2022 1:15 PM CDT): Continue statin Assessment & Plan (09/04/2022 1:16 PM CDT): Continue statin Assessment & Plan (01/11/2022 1:15 PM CDT): Continue statin Assessment & Plan (12/08/2021 12:10 PM CDT): Continue statin Aortic valve stenosis, moderate 06/12/2021 Overview (06/12/2021): [facility] 10/06/2020 Medicare annual wellness visit, subsequent 06/03 Assessment & Plan (12/04/2022 1:31 PM CDT): Reviewed PMH & FH PHQ Screening reviewed Hearing/vision screening reviewed, referrals placed as needed Fall risk reviewed Reviewed medications and supplements Specialists: cardiology, pulmonology evidence of cognitive impairment HCM: orders placed as needed Assessment & Plan (10/12/2021 2:20 PM CDT): Reviewed PMH & FH PHQ [...] UTD Assessment & Plan (06/03/2020 6:31 AM AREA RELIEF PILOT): Reviewed PMH & FH PHQ Screening PHQ-2 [...] Plan (09/12/2023 2:58 PM CDT): Following with congressional aide, upcoming mohs surgery Hyperlipidemia associated with type 2 diabetes sabas ivan 03/15/2020 Assessment & Plan (06/13/2023 1:31 PM AREA RELIEF PILOT): Continue statin Assessment & Plan (03/08/2023 2:28 PM CDT): Continue statin Assessment & Plan (12/04/2022 1:14 PM CDT): Continue statin Assessment & Plan (09/04/2022 1:19 PM CDT): Continue statin Assessment & Plan (06/07/2022 1:21 PM AREA RELIEF PILOT): Continue statin Assessment & Plan (01/11/2022 1:15 PM CDT): Continue statin Assessment & Plan (10/12/2021 2:21 PM CDT): Continue statin Assessment & Plan (07/14/2021 6:06 AM AREA RELIEF PILOT): Continue statin Assessment & Plan (06/15/2021 4:57 PM AREA RELIEF PILOT): Continue statin Assessment & Plan (09/15/2020 3:53 PM CDT): Lab Results Component Value Date LDLCALC 70 01/01/2020 At goal Continue 5mg simvastatin Assessment & Plan (09/01/2020 2:47 PM CDT): On 5mg simvastatin Assessment & Plan (06/03/2020 6:27 AM AREA RELIEF PILOT): On 5mg simvastatin Assessment & Plan (03/15/2020 11:37 AM AREA RELIEF PILOT): On 5mg simvastatin Overweight with body mass in dex (BMI) of 25 to 25.9 in adult 03/15/2020 Assessment & Plan (03/15/2020 11:39 AM AREA RELIEF PILOT): BMI Follow-up includes: nutrition counseling. Vitamin B12 deficiency 01/04/2020 Assessment & Plan (06/03/2020 6:29 AM AREA RELIEF PILOT): On 1,000mcg cyanocobalamin Vitamin D deficiency 01/04/2020 Assessment & Plan (06/03/2020 6:29 AM AREA RELIEF PILOT): On 5,000 international units daily Assessment & Plan (03/15/2020 11:30 AM AREA RELIEF PILOT): Recent level 77, can d/c supplementation Iron deficiency 01/04/2020 Assessment & Plan (06/03/2020 6:29 AM AREA RELIEF PILOT): Stable Continue supplementation Assessment & Plan (03/15/2020 11:30 AM AREA RELIEF PILOT): Stable Continue supplementation Urinary incontinence 01/04/2020 Assessment & Plan (02/10/2021 1:55 PM CDT): Continue mrybetriq Assessment & Plan (09/01/2020 2:47 PM CDT): Will d/c jardiance Continue 40mg lasix, pending review of cardiology records Assessment & Plan (06/03/2020 6:28 AM AREA RELIEF PILOT): On myrbetriq 50mg Assessment & Plan (01/04/2020 6:45 AM CDT): On myrbetriq 50mg Supplies ordered and faxed Hypertension associated with diabetes Assessment & Plan (06/13/2023 1:31 PM AREA RELIEF PILOT): BP controlled Continue 12.5mg losartan Assessment & Plan (03/08/2023 2:28 PM CDT): BP controlled Continue 12.5mg losartan Assessment & Plan (12/04/2022 1:14 PM CDT): BP at goal Continue 12.5mg losartan Assessment & Plan (09/04/2022 1:18 PM CDT): BP at goal Continue 12.5mg losartan Assessment & Plan (06/07/2022 1:20 PM AREA RELIEF PILOT): BP at goal Continue 12.5mg losartan Assessment & Plan (01/11/2022 1:15 PM CDT): BP at goal Continue 12.5mg losartan Assessment & Plan (10/12/2021 2:21 PM CDT): BP at goal Continue 12.5mg losartan Assessment & Plan (07/14/2021 6:05 AM AREA RELIEF PILOT): BP at goal Continue 12.5mg losartan Assessment & Plan (06/15/2021 4:57 PM AREA RELIEF PILOT): BP at goal Continue 12.5mg losartan Assessment & Plan (05/11/2021 1:46 PM AREA RELIEF PILOT): BP at goal Continue 12.5mg losartan Assessment & Plan (04/13/2021 3:27 PM AREA RELIEF PILOT): Blood pressure low Will decrease losartan to 12.5mg daily Assessment & Plan (09/15/2020 3:52 PM CDT): BP at goal Continue 25mg losartan Assessment & Plan (09/01/2020 2:46 PM CDT): BP at goal Continue 25mg losartan Assessment & Plan (06/03/2020 6:27 AM AREA RELIEF PILOT): BP at goal Continue 25mg losartan Assessment & Plan (03/15/2020 11:35 AM AREA RELIEF PILOT): BP at goal Continue 25mg losartan Assessment [...] daily Assessment & Plan (06/13/2023 1:43 PM AREA RELIEF PILOT): A1c 9.2, uncontrolled Start novolog 5 units TIDAC Continue lantus 15 units daily, 4.5mg trulicity, metformin 1000mg twice a day, jardiance 25mg & glipizide 20mg daily Assessment & Plan (03/10/2023 2:28 PM AREA RELIEF PILOT): A1c 9.3, uncontrolled Increase lantus to 15 [...] daily Assessment & Plan (06/07/2022 1:11 PM AREA RELIEF PILOT): Lab Results Component Value Date HGBA1C 7.8 [...] 25mg Assessment & Plan (07/13/2021 2:05 PM AREA RELIEF PILOT): Lab Results Component Value Date HGBA1C 7.5 06/15/2021 Continue 4.5mg trulicity, metformin 1000mg twice a day and jardiance 25mg Assessment & Plan (06/15/2021 4:56 PM AREA RELIEF PILOT): Lab Results Component Value Date HGBA1C 7.5 06/15/2021 Continue 1,000mg metformin twice a day, 25mg jardiance, 20mg XR glipizide & 4.5mg trulicity Assessment & Plan (05/11/2021 1:46 PM AREA RELIEF PILOT): Lab Results Component Value Date HGBA1C 8.2 (H) 03/16/2021 Persistently elevated post prandial blood sugar so will increase trulicity to 4.5mg weekly Given borderline low fasting blood sugar will d/c lantus once increases trulicity Continue metformin 1000mg twice a day, jardiance 25mg & 20mg glipizide XR Assessment & Plan (04/13/2021 3:24 PM AREA RELIEF PILOT): Improved But with persistent post prandial hyperglycemia so will increase trulicity to 3mg weekly Mild fasting hypoglycemia so decrease lantus to 5 units nightly Continue metformin, jardiance, & glipizide Assessment & Plan (03/16/2021 5:07 PM AREA RELIEF PILOT): Improved But with persistent hyperglycemia so will [...] metformin Assessment & Plan (06/03/2020 6:27 AM AREA RELIEF PILOT): DM Care Plan: Meds: Metformin - Continue [...] recheck Assessment & Plan (03/15/2020 11:33 AM AREA RELIEF PILOT): DM Care Plan: Meds: will likely need [...] Eye Exam: yearly Foot Exam: 0/10 monofilament 828/20 BP: At goal, on Arb. Continue meds Smoking - none Influenza - this fall Pneumococcal - request records A1C - check today Lipids: On statin, checked yearly Urine Microalbumin - on Arb - no recheck CHF (congestive heart failure) Assessment & Plan (06/13/2023 1:31 PM AREA RELIEF PILOT): Following with cardiology Assessment & Plan (03/08/2023 2:30 PM CDT): Following with cardiology Assessment & Plan (12/04/2022 1:15 PM CDT): Following with cardiology Low salt diet Assessment & Plan (09/04/2022 1:18 PM CDT): Following with cardiology Low salt diet Assessment & Plan (06/07/2022 1:20 PM AREA RELIEF PILOT): Following with cardiology, upcoming ECHO Low salt diet Assessment & Plan (01/11/2022 1:52 PM CDT): Check bnp Following with cardiology, request records Assessment & Plan (10/12/2021 2:21 PM CDT): Asymptomatic off lasix Assessment & Plan (07/14/2021 6:05 AM AREA RELIEF PILOT): Called pharmacy and discontinued lasix Assessment & Plan (06/15/2021 4:57 PM AREA RELIEF PILOT): Supposed to be off lasix, but still appears to be taking, will send d/c order Assessment & Plan (05/11/2021 1:47 PM AREA RELIEF PILOT): Following with cardiology Off lasix Assessment & Plan (04/13/2021 3:27 PM AREA RELIEF PILOT): Continue 20mg lasix daily for now Request cardiology notes to review, consider stopping Assessment & Plan (03/16/2021 5:07 PM AREA RELIEF PILOT): Persistently dry on exam so will decrease lasix further to 20mg daily Assessment & Plan (02/10/2021 1:54 PM CDT): Appears dry on exam, will decrease lasix to 30mg Assessment & Plan (10/28/2020 1:48 PM CDT): Reviewed cmp, within normal limits, ok to continue lasix Assessment & Plan (09/01/2020 2:45 PM CDT): Following with cardiology, request records Assessment & Plan (06/03/2020 6:28 AM AREA RELIEF PILOT): Symptoms stable Continue lasix 40mg Following with cardiology Assessment & Plan (03/15/2020 11:29 AM AREA RELIEF PILOT): Symptoms stable Continue lasix 40mg Referred to cardiology, encouraged to schedule Assessment & Plan (01/04/2020 6:43 AM CDT): Symptoms stable Continue lasix 40mg, check labs Previously seen by Dr. Villalba, will place new referral Encounters Date Type Department Care Team Description 09/10/2024 3:10 PM CDT - 09/10/2024 11:59 PM CDT Hospital Encounter [facility] [address] [place] [address] Pulmonary nodules Discharge Disposition: Discharge to home or self care 07/21/2024 Telephone [facility] [place] [address] [facility] [address] [facility] [address] [place] [address] Samanta Stack MD Medical Question/Miscellane ous from Last 3 Months Immunizations Immunization Administration Dates Next Due Influenza, Quad, Adjuvantate d, Intramuscular 02/22/2021 Influenza, Quadrivalent, Hig h Dose, Preservative Free, Intrr 02/07/2022,02/19/2020 Influenza, Quadrivalent, Spl it, Intramuscular 01/24/2018,02/02/2016,02/23/2015,01/20 Influenza, Quadrivalent, Spl it, Preservative Free, Intramuscular 02/28/2023,01/28/2014 Influenza, Trivalent, Adjuva nted, Intramuscular 02/20/2018,02/17/2017 Influenza, Trivalent, High D ose, Split, Preservative Free, Intramuscular 01/28/2019,01/04/2019 Influenza, Trivalent, IM (MDV) 02/27/2013 Influenza, Unspecified 02/07/2021 Wish SARS-CoV-2 Monovalent Vaccination (12+ Yrs) PURPLE 03/16/2021,06/27/2020,06/06/2020 Pneumococcal Conjugate PCV 13 07/28/2015 Pneumococcal Polysaccharide PPV23 02/25/2017 TD Preservative Free 06/07/2003 Td, Unspecified 07/20/2010 Td, adsorbed 07/20/2010 Surgical History Surgery Date Site/Laterality Comments APPENDECTOMY Medical History Medical History Date Comments Stroke (HCC) Diabetes mellitus (HCC) Arthritis Hypertension Hyperlipidemia Anemia Family History Medical History Relation Name Comments Heart disease Mother Relation Name Status Comments Father Mother Social History Tobacco Use Types Packs/Day Years [...] on file Legal Sex Female 7:52 PM AREA RELIEF PILOT Gender Identity Not on file Sexual Orientation Not on file Obstetrics History Last Filed Vital Signs Vital Sign Reading [...] 09/23/2023 1:38 PM CDT Plan of Treatment Health Maintenance Due Date Last Done Comments Zoster Vaccine (1 of 2) 1995 DTaP/Tdap/Td Vaccine (1 - Tdap) 07/21/2010 07/20/2010, 07/20/2010, 06/07/2003 Colon Cancer Screening-DNA Stool 09/15/2023 09/15/19 21 Depression Screening 12/05/2023 12/04/2022, 06/07/2022, 10/12/2021, Additional history exists Fall Risk Assessment 12/05/2023 12/04/2022, 10/12/2021, 04/13/2021, Additional history exists Well Visit 65+ 12/05/2023 12/04/2022, 01/2022, 06/02/2020 Covid-19 Vaccine (2023- 5 season) 2024 10/20/2021, 03/16/2021, 06/27/2020, Additional history exists Lipid Panel 03/08/2024 03/08/2023, 12/2021, 03/16/2021, Additional history exists Hemoglobin A1C 03/14/2024 09/12/2023, 12/2023, 03/08/2023, Additional history exists Dilated Eye Exam 06/10/2024 06/10/2023, 10/2022, 11/24/2021, Additional history exists Albumin Creatinine Ratio, Urine 09/11/2024 09/12/2023, 09/04/2022, 06/13/2021 Foot Exam 09/11/2024 09/12/2023, 050 06/2022, 04/13/2021, Additional history exists eGFR 09/11/2024 09/12/2023, 050 06/2022, 01/11/2022, Additional history exists Osteoporosis Screening-Bone Density Scan 01/02/2025 01/02/2023, 09/23/2020, 08/17/2014 Influenza Vaccine (Season Ended) 2025 02/28/2023, 02/07/2022, 02/22/2021, Additional history exists Pneumococcal vaccine 65+ Completed 02/25/2017, 07/05 Hepatitis C Screening Completed 01/01/2020 Colon Cancer Screening-FIT Discontinued 09/14/2020 Hepatitis B Screening Completed 09/12/2023 Breast Cancer Screening-Mammogram Discontinued 024, 08/17/2014 Procedures Procedure Name Priority Date/Time Associated Diagnosis [...] recommended. Electronically signed by: Carline Carr M.D. Samanta Stack MD IMG MAMMO PROCEDU RES [...] was last reviewed 2021. Testing performed by: [address] [address] Blood 09/12/2023 3:22 PM CDT 09/12/2023 4:25 PM CDT us Samanta Stack MD LAB BLOOD ORDERAB LES Final Result [facility] [address] [facility] Department [place] [address] * (ABNORMAL) Albumin Creatinine Ratio, Urine (09/12/2023 3:22 PM CDT) Albumin Ur <12.0 mg/L Comment: Interpretive Data No reference range established. Current interpretive data was last revised 2018. Testing performed by: [address] [address] Creatinine Ur 18.8 mg/dL [facility] Comment: Interpretive Data No reference range established. Current interpretive data was last revised 2018. Testing performed by: [address] [address] Albumin Creatinine Ratio, Ur <64(H) 1 - 29 mg/g [facility] Comment:Testing performed by : [address] [address] Urine 09/12/2023 3:22 PM CDT 09/12/2023 4:17 PM CDT Samanta Stack MD LAB URINE ORDERAB LES Final Result Performing Organization Address [facility] Co de Phone Number [address] [address] * (ABNORMAL) Hemoglobin A1c (09/12/2023 3:22 PM CDT) Hgb A1C 7.9(H) 4.0 - 5.6 % Comment:Testing performed by : [address] [address] Estimated Average Glucose 180 mg/dL [facility] Comment: The ADA recommends reporting an estimated Average Glucose (eAG) with all Hemoglobin A1c results using the equation derived from a study of 507 normal and diabetic adults. Minority populations were underrepresented and children were not included. (Diabetes Care 31:6408-7765, 2008). The eAG is not equivalent to a fasting glucose. Testing performed by: [address] [address] Blood 09/12/2023 3:22 PM CDT 09/12/2023 4:19 PM CDT Samanta Stack MD LAB BLOOD ORDERAB LES Final Result Performing Organization Address [facility]/ZIP Co de Phone Number [facility] [address] [facility] [place] [address] * (ABNORMAL) DIABETES EYE EXAM (06/10/2023) Pathologist [facility] SCRIBED DIABETIC DILATED EYE EXAM Abnormal Historical Provider HEALTH MAINTENANCE Final Result * Lipid panel (03/08/2023 3:21 PM CDT) Cholesterol 141 30 - 199 mg/dL [facility] Comment: Interpretive Data Ages < [...] last revised on 2017. Testing performed by: [address] [address] Triglycerides 63 <=149 mg/dL [facility] Comment: Interpretive [...] last revised on 2017. Testing performed by: [address] [address] HDL 64 >=40 mg/dL [facility] Comment: Interpretive [...] last revised on 2017. Testing performed by: [address] [place]., [address] LDL, calculated 64 <=129 mg/dL [facility] Comment: [...] last revised on 2017. Testing performed by: [address] [address] Non-HDL Cholesterol 77 mg/dL [facility] Comment: Interpretive Data Ages < [...] last revised on 2017. 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 TW: TW Report ID: [id number] Reading Location: [place] [address] Procedure Note Vivian Choudhary MD - 01/03/2023 EXAM DESCRIPTION: DEXA AXIAL SKELETON BONE DENSITY 1 OR MORE SITES REASON FOR STUDY: 77 y/o year old F with given history of:Postmenopausal status. Patient has a history of skin carcinoma and asthma or emphysema. Patient has taken/is taking vitamin-D and calcium Rate Clerk Passenger/Model: [employer] A (S/N [id number]) CLINICAL INFORMATION: Current height: 65 inches Maximum [...] Electronically signed by Vivian Choudhary M.D. TW: JOSE Report ID: [id number] Reading Location: [id number] Samanta Stack MD IM DXA PROCEDURE S Final Result * Stool DNA - Cologuard (09/14/2020 12:30 PM CDT) Stool DNA - Cologuard Negative Not Applicable [facility] (CLIA #:[id number]) Comment: A negative result indicates a low [...] screened with both Cologuard and colonoscopy. (Melva Fernandez al, N Engl J Med 2014;370(14):8630-4729) The normal value (reference range) for this assay is negative. COLOGUARD RE-SCREENING RECOMMENDATION: Periodic routine colorectal cancer screening is an important part of preventive healthcare for asymptomatic persons at average risk for colorectal cancer. Following a negative Cologuard result, the [place] [employer] Society and U.S. Multi-Society Task Force screening guidelines recommend a Cologuard re-screening interval of 3 years. References: [place] [employer] (ACS). Colorectal cancer prevention and early detection. [place], [place]: [place] [employer]; [updated 2015Aug 27]. https://www.cancer.org/cancer/ibaix-qwbmve-aydkmh/mhdyonpxq-wbzvymhcp-tfyxydm/ac s-rec ommendations.html. Accessed January 03, 2018; Jamison DK, Luis PATEL, Eris NIETO, Colorectal Cancer Screening: Recommendations for Physicians and Patients from the U.S. Multi-Society Task Force on Colorectal Cancer Screening, Am J Gastroenterology 2017; 112:0460-3702. TEST TYPE: Composite algorithmic analysis of stool [...] interval of every 3 years by the [place] [employer] Society and U.S. Multi-Society Task Force. [...] can be accessed at the following location: www.[employer]/results. Additional description of the Cologuard test process, warnings and precautions can be found at www.cologuardtest.com. Rx only. Stool 09/14/2020 12:3 0 PM CDT 09/15/2020 2:37 PM CDT Samanta Stack MD LAB BODY FLUIDS A ND STOOLS ORDERABLES Final Result [facility] (CLIA #:[id number]) [place] [place] [address] * Hepatitis C antibody (01/01/2020 2:04 PM CDT) Hep C Ab NONREACT NONREACTIVE [facility] Comment: Siemens CentaurXP using EMILY (chemiluminescent immunoassay) [...] LAB MICROBIOLOGY - GENERAL ORDERABLES Final Result Performing Organization Address [facility] de Phone Number [facility] [address] [place], [place] [id number] [place] [address] from Last 3 Months or Most Recently Relevant to Health Maintenance [place] [address] MEDICARE [facility] Care Teams Sales Order Specialist Relationship Specialty Start Date End Date No, Physician PCP - General 08/05/24
--- NOTE | 2024-09-15 15:00 | ECHO_ITS ---
Patient Info Name: Staci Trejo Age: 79 years : 1945 Gender: Female Ht: 64 in Wt: 160 lbs BSA: 1.83 m2 HR: 85 bpm BP: 103 / 59 mmHg Heart Rhythm: Sinus Rhythm Technical Quality: Fair Exam Date: 09/15/2024 3:10 PM Patient Status: O Admit Date: 09/15/2024 Exam Type: CA echo doppler color flow Study Info Indications Nonrheumatic aortic (valve) stenosis - Complete two-dimensional, color flow and Doppler transthoracic echocardiogram is performed. Coal Hauler: Angelica Rodrigues Attending Provider: Christian Bryan DO Summary 1. Complete two-dimensional, color flow and Doppler transthoracic echocardiogram is performed. 2. Left ventricular chamber dimension is normal. 3. Left ventricular systolic function is normal, estimated at 60-65. 4. The left ventricular diastolic function is grade I diastolic dysfunction. 5. E/e' 23 is elevated. 6. Left atrial chamber dimension is mildly enlarged. 7. The aortic valve is not well visualized. Cannot determine number of aortic valve leaflets. No parasternal short axis views through the aortic valve seen. 8. There is moderate aortic valve stenosis based on a peak velocity of 257 cm/s, mean gradient of 15 mmHg, and aortic valve area of 1.0 cm2. 9. The mitral valve has moderately calcified leaflets and a mildly calcified annulus. 10. No pulmonary hypertension, estimated pulmonary arterial systolic pressure is 21 mmHg. Left Ventricle E/e' 23 is elevated. Left ventricular chamber dimension is normal. Left ventricular systolic function is normal, estimated at 60-65. The left ventricular diastolic function is grade I diastolic dysfunction. Right Ventricle Right ventricular chamber dimension is normal. Right ventricular systolic function is normal and with normal TAPSE 2.1 cm. Left Atria Left atrial chamber dimension is mildly enlarged. Right Atria Right atrial chamber dimension is normal. Aortic Valve The aortic valve is not well visualized. Cannot determine number of aortic valve leaflets. No parasternal short axis views through the aortic valve seen. There is moderate aortic valve stenosis based on a peak velocity of 257 cm/s, mean gradient of 15 mmHg, and aortic valve area of 1.0 cm2. There is no aortic valve regurgitation. Pulmonic Valve There is no pulmonic regurgitation. Mitral Valve The mitral valve has moderately calcified leaflets and a mildly calcified annulus. There is no mitral valve stenosis. There is no mitral valve regurgitation. Tricuspid Valve There is no tricuspid valve regurgitation. No pulmonary hypertension, estimated pulmonary arterial systolic pressure is 21 mmHg. Pericardium/Pleural There is no pericardial effusion. Inferior Vena Cava Normal inferior vena cava with >50% collapse upon inspiration consistent with normal right atrial pressure, 5 mmHg. Aorta The aortic root size at the sinus of Valsalva is normal. Left Ventricular Outflow Tract Name Value Normal LVOT 2D LVOT Diameter 2.0 cm LVOT Doppler LVOT Peak Velocity 90 cm/s LVOT Peak Gradient 3 mmHg LVOT Mean Gradient 2 mmHg LVOT VTI 14 cm LVOT VTI/AV VTI Ratio 0.3 LVOT Stroke Volume 45 ml LVOT CO 3.9 l/min LVOT CI 2.1 l/min/m2 Mitral Valve Name Value Normal MV Diastolic Function MV E Peak Velocity 66 cm/s MV A Peak Velocity 84 cm/s MV E/A 0.8 MV Decel Time (PW) 221 ms MV Annular TDI MV E/e' (Septal) 29.1 MV E/e' (Lateral) 19.7 MV E/e' (Average) 24.4 Tricuspid Valve Name Value Normal TV Regurgitation Doppler TR Peak Velocity 198 cm/s TR Peak Gradient 16 mmHg Estimated PAP/RSVP RA Pressure 5 mmHg <=5 PA Systolic Pressure 21 mmHg <36 RV Systolic Pressure 21 mmHg <36 TV Annular TDI TV Lateral Naida s' Velocity 14.4 cm/s >=9.5 Aortic Valve Name Value Normal AV Doppler AV Peak Velocity 257 cm/s AV Peak Gradient 26 mmHg AV Mean Gradient 15 mmHg AV VTI 43 cm AV Area (Cont Eq VTI) 1.0 cm2 >=3.0 AV Area (Cont Eq Milad) 1.1 cm2 AV DI (Milad) 0.35 AV Regurgitation 2D LVOT Area 3.2 cm2 Ventricles Name Value Normal LV Dimensions 2D/MM LVOT Diameter 2.0 cm LV Fractional Shortening/Ejection Fraction 2D/MM LV Diastolic Volume (4C MOD) 45 ml LV EF (4C MOD) 62 % LV Diastolic Volume (2C MOD) 41 ml LV EF (2C MOD) 66 % LV Diastolic Volume (BP MOD) 42 ml 46-106 LV Diastolic Volume Index (BP MOD) 23 ml/m2 29-61 LV Systolic Volume (BP MOD) 16 ml 14-42 LV Systolic Volume Index (BP MOD) 9 ml/m2 8-24 LV EF (BP MOD) 62 % 54-74 LV Diastolic Length (4C) 6.7 cm LV Systolic Length (4C) 6.4 cm LV Stroke Volume (4C MOD) 28 ml Atria Name Value Normal LA Dimensions LA Volume (4C A-L) 62 ml LA Volume (BP A-L) 46 ml RA Dimensions RA Area (4C) 13.5 cm2 <=18.0 Report Signatures
== END 2024-09-15 14:29 | disposition home or self-care (01) ==
PROVIDERS: Visit Provider Internal Medicine Cardiovascular Disease
DX: I35.0 Nonrheumatic aortic (valve) stenosis (principal); I34.81 Nonrheumatic mitral (valve) annulus calcification; I51.89 Other ill-defined heart diseases
CPT/HCPCS: 93306